=== PATIENT | female | born 1955 | race African-American/Black ===

== ENCOUNTER 2017-05-26 17:52 | Inpatient (IN) | payer MEDICAID, MEDICARE, SELFPAY ==
[2017-05-26] MEDS ORDERED: Dexamethasone 4 mg/ml Vial ONE (18:54)
[2017-05-26 18:59] LABS: Hematocrit 51.1 % (36.0-47.0); Mean Platelet Volume 7.5 fL (7.4-10.4); Red Blood Cell (RBC) Count 4.94 mill/uL (4.20-5.40); White Blood Cell (WBC) Count 16.6 thou/uL (4.8-10.8)
[2017-05-26 19:00] LABS: PTT 25.8 SEC (22.9-36.1)
[2017-05-26 19:11] LABS: Band 3 % (5-11); Lactic Acid - Sepsis 1.9 mmol/L (0.5-2.2); Neutrophil 75 % (42-75); Vacuoles SLIGHT
[2017-05-26 19:18] LABS: ALT (SGPT) 9 U/L (8-55); AST (SGOT) 11 U/L (5-34); Alkaline Phosphatase 113 U/L (40-150); Anion Gap 14 mmol/L (10-20); BUN (Urea Nitrogen) 8 mg/dL (9.8-20.1); Bilirubin, Total 0.4 mg/dL (0.2-1.2); CK (CPK) 33 U/L (29-168); Calc. Creatinine Clearance 0 mL/min (70-130); Calcium 11.4 mg/dL (7.8-10.44); Carbon Dioxide 27 mmol/L (23-31); Chloride 102 mmol/L (98-107); Estimated GFR-MDRD Greater than 90; Globulin 4.5 g/dL (2.4-3.5); Lipase 17 U/L (8-78); Protein, Total 8.6 g/dL (6.0-8.3)
[2017-05-26 19:21] LABS: Troponin I Less than 0.010 ng/mL (< 0.028)
--- NOTE | 2017-05-26 20:52 | RAD ---
PORTABLE AP CHEST X-RAY 05/26/17 HISTORY: Cough. COMPARISON: 06/20/15 FINDINGS: There is increased opacity seen in the right mid lung zone, worrisome for pneumonia. Linear density seen in the left mid lung zone which may be related to atelectasis or scarring. Cardiac silhouette and pulmonary vasculature are within normal limits. Vascular calcifications seen in the thoracic aor ta. No other interval change. IMPRESSION: Pneumonia in the right mid lung zone. Followup to complete resolution is recommended. POS: [facility]
[2017-05-26] MEDS ORDERED: Sodium Chloride 0.9% 1,000 ML IV SCH (21:20)
[2017-05-26] MEDS ORDERED: Ondansetron ODT 4 MG TAB SL PRN (21:20)
[2017-05-26] MEDS ORDERED: Ondansetron HCl/PF 4 MG/2 ML Vial IVP PRN ×2 (21:20→21:31)
[2017-05-26] MEDS ORDERED: Ondansetron ODT 4 MG TAB PO PRN (21:31)
[2017-05-26] MEDS ORDERED: Eucerin (Mineral Oil/Petrolatum,White) 30 gm Jar TOP PRN (21:31)
[2017-05-26] MEDS ORDERED: Artificial Tears 18 DROP/0.9 ML EA EYE PRN (21:31)
[2017-05-26] MEDS ORDERED: Loratadine 10 MG TAB PO PRN (21:31)
[2017-05-26] MEDS ORDERED: Senokot 8.6 MG TAB PO PRN (21:31)
[2017-05-26] MEDS ORDERED: Chloraseptic Spray 180 ml Bottle PO PRN (21:31)
[2017-05-26] MEDS ORDERED: Mag-Al 1200 mg/1200 mg/30 ML UDCUP PO PRN (21:31)
[2017-05-26] MEDS ORDERED: Zolpidem Tartrate 5 MG TAB PO PRN (21:31)
[2017-05-26] MEDS ORDERED: Acetaminophen 325 MG TAB PO PRN (21:31)
[2017-05-26] MEDS ORDERED: Milk Of Magnesia 30 ML UDCUP PO PRN (21:31)
[2017-05-26] MEDS ORDERED: Sodium Chloride 0.65% Nasal 44 ML BOT EA NARE PRN (21:31)
[2017-05-26] MEDS ORDERED: Loperamide HCl 2 MG CAP PO PRN (21:31)
[2017-05-26] MEDS ORDERED: guaiFENesin ER 600 MG TAB PO SCH (22:00)
[2017-05-26 22:09] VITALS: BMI 16.0
[2017-05-26] MEDS: NS 0.9% w/ 20 MEQ KCL 1,000 ML/1,000 ML BAG IV SCH (22:18)
[2017-05-26] MEDS: cefTRIAXone\\ROCEPHIN 1 GM in Sodium Chloride 0.9% 100 ML IVPB SCH (22:18)
[2017-05-26 23:11] LABS: LegU Control Bar Appear? YES (CONTROL BAR); LegionellaU Control Bkground? CLEAR/WHITE (CLR/WHITE); Strp pneuU Control Background? CLEAR/WHITE (CLR/WHITE); Strp pneumo Control Bar Appear YES (CONTROL BAR)
--- NOTE | 2017-05-26 23:47 | HP ---
PRIMARY CARE PHYSICIAN: [facility]. REASON FOR ADMISSION: Sepsis, community-acquired bacterial pneumonia. HISTORY OF PRESENT ILLNESS: A 62-year-old -[place] female with a history of heavy smoking, who came to the emergency room with a complaint of cough productive of yellowish sputum. The patien t has these symptoms for last 3 days, which is gradually getting worse. She is also experiencing sh ortness of breath. She was having subjective fever at home, but she did not measure her temperature . She was also having pleuritic chest pain on the right side. She denies any hemoptysis. She tammy es any recent travel. She denies any sick exposure. She denies any recent viral infection. She de nies any flu-like illness. With these symptoms, she presented to the emergency room and the patient was diagnosed with the righ t-sided pneumonia. Patient also had leukocytosis with left shift. In the emergency room, patient h as received levofloxacin, IV fluid, DuoNeb therapy, and Decadron 10 mg IV push and subsequently, she was admitted to medical floor. REVIEW OF SYSTEMS: The following complete review of systems was negative, unless otherwise mentione d in the HPI or below: Constitutional: Weight loss or gain, ability to conduct usual activities. Skin: Rash, itching. Eyes: Double vision, pain. ENT/Mouth: Nose bleeding, neck stiffness, pain, tenderness. Cardiovascular: Palpitations, dyspnea on exertion, orthopnea. Respiratory: Shortness of breath, wheezing, cough, hemoptysis, fever or night sweats. Gastrointestinal: Poor appetite, abdominal pain, heartburn, nausea, vomiting, constipation, or diar jhonatan. Genitourinary: Urgency, frequency, dysuria, nocturia. Musculoskeletal: Pain, swelling. Neurologic/Psychiatric: Anxiety, depression. Allergy/Immunologic: Skin rash, bleeding tendency. Please see my HPI for pertinent positives and negatives. All other review of system reviewed and ne gative except as mentioned in the HPI. PAST MEDICAL HISTORY: History of systolic dysfunction based on echocardiography in 2014 with EF 40% -45%, hypertension, dyslipidemia, tobacco abuse disorder, history of pancreatitis x2. PAST SURGICAL HISTORY: Dental abscess required I and D in 02/2014, , colonoscopy, and poly p removal. PAST PSYCHIATRIC HISTORY: Anxiety and depression. SOCIAL HISTORY: Patient drinks alcohol socially. She smokes about 1-2 packs every day. She denies any other illicit drug abuse. FAMILY HISTORY: Patient reports that patient's mother and sister diagnosed with coronary artery dis ease, hypertension. Patient also reports that her mother had lung cancer with metastasis to brain. EMERGENCY ROOM COURSE: The patient has received 2 liters of IV fluid and Levofloxacin 750 mg, Decad valeria 10 mg, DuoNeb therapy was given. CURRENT HOME MEDICATIONS: Coreg 3.125 mg p.o. b.i.d., Celexa 20 mg p.o. daily, Remeron 30 mg p.o. a t bedtime, Zocor 40 mg p.o. at bedtime, trazodone 25 mg p.o. at bedtime, aspirin 81 mg p.o. daily. ALLERGIES: No known drug allergies. PHYSICAL EXAMINATION: VITAL SIGNS: On arrival, blood pressure 148/81, pulse 94, respiratory rate 18, temperature 98.6, sa turation 94% on room air, weight 46.7 kilograms. GENERAL: Patient is currently alert, awake, in mild distress due to cough. HEENT: Head: Normocephalic, atraumatic. Eyes: Pupils round, reactive to light. Extraocular musc les intact. ENT: Poor dentition. Oropharynx within normal limits. Moist mucous membranes. No oral lesions. No pharyngeal erythema. No exudate. NECK: Supple. Range of motion is normal. No meningeal signs of irritation. LUNGS: Scattered rhonchi throughout the lung, right-sided few rales noted. No accessory muscles of respiration in use. CARDIAC: S1, S2 regular. No murmur, no gallop, no rub. ABDOMEN: Soft, bowel sounds present, nontender, nondistended. No organomegaly, no mass, no suprapu bic tenderness. BACK: Unremarkable, no CVA tenderness. EXTREMITIES: Upper extremity, passive movement of all joints are normal. Lower extremities, no iqra ma. Good peripheral pulsation. SKIN: No skin rash. HEMATOLOGIC SYSTEM: No lymphadenopathy. NEUROLOGIC: Nonfocal examination. The patient moves all 4 limbs. Plantar bilateral flexor. PSYCHIATRIC: Normal affect. SIGNIFICANT LABS: EKG based on my review, normal sinus rhythm, right axis deviation. Chest x-ray b ased on my review, right lower lobe infiltration. CBC: WBC 16.6, hemoglobin 16.3, MCV 103, platele t 328 with bandemia. INR 1.0. BMP: Sodium 140, potassium 3.2, chloride 102, carbon dioxide 27, BU N 8, creatinine 0.72, glucose 71, lactic acid 1.9, calcium 11.4. LFT: AST 11, ALT 9, alkaline phos phatase 113, albumin 4.1, lipase 17, CK 133, CK-MB 0.5, troponin I less than 0.010. BNP 75. ASSESSMENT AND PLAN/IMPRESSION: 1. Community-acquired bacterial pneumonia. This patient has a right lower lobe pneumonia. Patient also has associated sepsis with leukocytosis. This patient has ongoing tobacco abuse disorder. At this point for further evaluation, we will check a respiratory virus panel, urine allergy on cassandra a nd streptococcal pneumoniae antigen test. We will continue with Rocephin 1 gram q.24 hours, Levaqui n 500 mg IV daily, Mucinex 600 mg twice daily, DuoNeb therapy q.6 hourly, Solu-Medrol 20 mg IV q.8 h ourly. We will monitor closely in hospital. 2. Sepsis. Patient does have leukocytosis with left shift and bandemia. Source of infection is pn eumonia. We will monitor while in hospital. The patient is already on IV fluid as well as empiric antibiotic therapy. 3. Hypokalemia. We will check magnesium tomorrow and will give her potassium with IV fluid today a nd will repeat BMP tomorrow. 4. Macrocytosis, likely related with her alcohol use. We will continue with folic acid 1 mg p.o. d aily, vitamin B12 1000 mcg p.o. daily. 5. Tobacco abuse disorder. Smoking cessation counseling was given. Healthy lifestyle measures dis cussed with the patient. If patient needs, then we will provide nicotine supplementation while in h ospital. 6. Hypertension. We will continue Coreg 3.125 mg p.o. b.i.d. 7. History of systolic dysfunction. We will continue with Coreg 3.125 mg p.o. b.i.d. If blood pre ssure permits, then we will also consider adding a low dose of lisinopril therapy before discharge. 8. Dyslipidemia. We will continue Zocor 40 mg p.o. at bedtime. 9. Anxiety and depression. We will continue Celexa 20 mg p.o. daily, trazodone 25 mg p.o. at bedti me, and Remeron 30 mg p.o. at bedtime. 10. Protein-calorie malnutrition, moderate. Patient will be given nutritional supplement with Ensu re Enlive 3 times daily. 11. Deep venous thrombosis prophylaxis. Lovenox 40 mg subcutaneously daily. 12. Gastrointestinal prophylaxis. Pepcid 20 mg p.o. b.i.d. 13. Code status: The patient is FULL CODE. Patient's is surrogate decision maker. Disposition plan based on clinical course. We are expecting patient's stay in hospital more than tw o midnights. Plan of care discussed with the patient and family member at bedside.
[2017-05-27 05:28] LABS: #Lymphocytes 1.9 thou/uL (1.20-3.40); #Monocytes 0.4 thou/uL (0.11-0.59); #Neutrophils 11.4 thou/uL (1.40-6.50); %Basophils 0.3 % (0.0-1.0); %Eosinophils 0.1 % (0.0-10.0); %Lymphocytes 13.5 % (21.0-51.0); %Monocytes 2.7 % (0.0-10.0); Hematocrit 43.5 % (36.0-47.0); Mean Platelet Volume 7.7 fL (7.4-10.4); Red Blood Cell (RBC) Count 4.17 mill/uL (4.20-5.40); White Blood Cell (WBC) Count 13.7 thou/uL (4.8-10.8)
[2017-05-27] MEDS: Guaifenesin DM 100-10/5 ML UDCUP PO PRN ×2 (05:43→20:59)
[2017-05-27 05:57] LABS: ALT (SGPT) 13 U/L (8-55); AST (SGOT) 14 U/L (5-34); Alkaline Phosphatase 93 U/L (40-150); Anion Gap 12 mmol/L (10-20); BUN (Urea Nitrogen) 7 mg/dL (9.8-20.1); Bilirubin, Total 0.2 mg/dL (0.2-1.2); Calc. Creatinine Clearance 65 mL/min (70-130); Calcium 10.4 mg/dL (7.8-10.44); Carbon Dioxide 22 mmol/L (23-31); Chloride 111 mmol/L (98-107); Estimated GFR-MDRD Greater than 90; Globulin 3.5 g/dL (2.4-3.5); Magnesium 1.9 mg/dL (1.6-2.6); Protein, Total 6.5 g/dL (6.0-8.3)
[2017-05-27] MEDS: Enoxaparin Sodium 40 MG/0.4 ML SYRINGE SC SCH (08:26)
[2017-05-27] MEDS: Carvedilol 3.125 MG TAB PO SCH ×2 (08:26→17:43)
[2017-05-27] MEDS: Folic Acid 1 MG TAB PO SCH (08:27)
[2017-05-27] MEDS: Famotidine 20 MG TAB PO SCH ×2 (08:27→20:31)
[2017-05-27] MEDS: Cyanocobalamin (Vitamin B-12) 1,000 MCG TAB PO SCH (08:27)
[2017-05-27] MEDS: guaiFENesin ER 600 MG TAB PO SCH ×2 (08:28→20:32)
[2017-05-27] MEDS ORDERED: Dexamethasone 10 MG/ML VIAL SLOW IVP SCH (09:00)
--- NOTE | 2017-05-27 10:48 | CT ---
NONCONTRAST ENHANCED CT CHEST: DATE: 05/27/17. HISTORY: Pneumonia. FINDINGS: Noncontrast-enhanced CT of the chest demonstrates areas of consolidation and volume loss in the righ t middle lobe and lingula. Some mild diffuse airspace opacity is also seen in the right upper lobe and to a lesser degree left upper lobe. Minimal airspace opacities are also seen in both lower lobe s, anteriorly. IMPRESSION: Multilobar pneumonia. POS: [facility]
[2017-05-27] MEDS: NS 0.9% w/ 20 MEQ KCL 1,000 ML/1,000 ML BAG IV SCH (12:27)
[2017-05-27] MEDS: HYDROcodone/Acetaminophen 5/325 mg Tablet PO PRN (15:14)
--- NOTE | 2017-05-27 16:19 | PDOC.PN ---
- Subjective Encounter Start Date: 05/27/17 Encounter Start Time: 13:00 Subjective: breathing better now -: no chest pain - Objective Resuscitation Status: Resuscitation Status FULL:Full Resuscitation MAR Reviewed: Yes Vital Signs & Weight: Vital Signs (12 hours) Temp Pulse Resp BP Pulse Ox 05/27/17 14:12 64 16 05/27/17 08:02 99 05/27/17 08:00 98.2 F 64 24 H 149/72 H 91 L 05/27/17 07:58 68 15 99 Weight Admit Weight 102 lb Weight 102 lb I&O: 05/26/17 05/27/17 05/28/17 06:59 06:59 06:59 Intake Total 1420 240 Balance 1420 240 Result Diagrams: 05/27/17 04:58 05/27/17 04:58 Phys Exam - Physical Examination HEENT: PERRLA, moist MMs Neck: no JVD, supple Respiratory: no wheezing rhonchi++ Cardiovascular: RRR, no significant murmur Gastrointestinal: soft, non-tender, positive bowel sounds Musculoskeletal: no edema, pulses present Neurological: non-focal, moves all 4 limbs Psychiatric: A&O x 3 Dx/Plan (1) PNA (pneumonia) Code(s): J18.9 - PNEUMONIA, UNSPECIFIED ORGANISM Status: Acute Qualifiers: Pneumonia type: due to unspecified organism Laterality: right Lung location: middle lobe of lung Qualified Code(s): J18.1 - Lobar pneumonia, unspecified organism (2) COPD (chronic obstructive pulmonary disease) Status: Chronic Qualifiers: COPD type: COPD with acute lower respiratory infection Qualified Code(s): J44.0 - Chronic obstructive pulmonary disease with acute lower respiratory infection (3) Hyperlipidemia Code(s): E78.5 - HYPERLIPIDEMIA, UNSPECIFIED Status: Chronic Qualifiers: Hyperlipidemia type: unspecified Qualified Code(s): E78.5 - Hyperlipidemia , unspecified (4) Hypertension Code(s): I10 - ESSENTIAL (PRIMARY) HYPERTENSION Status: Chronic Qualifiers: Hypertension type: essential hypertension Qualified Code(s): I10 - Essential (primary) hypertension (5) Tobacco abuse Code(s): Z72.0 - TOBACCO USE Status: Acute - Plan is on levaquin and ceftriaxone -: duonebs, steroids -: CT chest results noted -: pulm consult in am -: counselled reg smoking cessation, has high mcv of 104 * . Review of Systems - Medications/Allergies Allergies/Adverse Reactions: Allergies Allergy/AdvReac Type Severity Reaction Status Date / Time No Known Allergies Allergy Verified 05/26/17 21:30 Medications: Current Medications Acetaminophen (Tylenol) 650 mg PO Q4H PRN PRN Reason: Headache/Fever or Pain Hydrocodone Bitart/Acetaminophen ([place] 5/325) 1 tab PO Q4H PRN PRN Reason: Moderate Pain (4-6) Last Admin: 05/27/17 15:14 Dose: 1 tab Al Hydroxide/Mg Hydroxide (Maalox) 30 ml PO Q6H PRN PRN Reason: Heartburn or Indigestion Albuterol/Ipratropium (Duoneb) 3 ml NEB [id number] [facility] Last Admin: 05/27/17 14:12 Dose: 3 ml Artificial Tears (Tears Naturale) 0 drop EA EYE PRN PRN PRN Reason: Dry Eyes Aspirin (Aspirin Chewable) 81 mg PO DAILY [facility] Last Admin: 05/27/17 08:27 Dose: 81 mg Atorvastatin Calcium (Lipitor) 20 mg PO HS [facility] Carvedilol (Coreg) 3.125 mg PO BID-[facility] Last Admin: 05/27/17 08:26 Dose: 3.125 mg Citalopram Hydrobromide (Celexa) 20 mg PO DAILY [facility] Last Admin: 05/27/17 08:27 Dose: 20 mg Cyanocobalamin (Vitamin B-12) 1,000 mcg PO DAILY [facility] Last Admin: 05/27/17 08:27 Dose: 1,000 mcg Enoxaparin Sodium (Lovenox) 40 mg SC 0900 [facility] Last Admin: 05/27/17 08:26 Dose: 40 mg Famotidine (Pepcid) 20 mg PO BID [facility] Last Admin: 05/27/17 08:27 Dose: 20 mg Folic Acid (Folvite) 1 mg PO DAILY [facility] Last Admin: 05/27/17 08:27 Dose: 1 mg Guaifenesin (Robitussin Sf) 200 mg PO Q4H PRN PRN Reason: Cough Guaifenesin (Mucinex) 600 mg PO Q12HR [facility] Last Admin: 05/27/17 08:28 Dose: 600 mg Guaifenesin/Dextromethorphan (Robitussin Dm) 15 ml PO Q4H PRN PRN Reason: Cough Last Admin: 05/27/17 05:43 Dose: 15 ml Hydralazine HCl (Apresoline) 10 mg SLOW IVP Q4H PRN PRN Reason: Systolic BP > 180 Potassium Chloride/Sodium Chloride (Ns 0.9% W/ 20 Meq Kcl) 1,000 ml in 1,000 mls @ 75 mls/hr IV .[id number] [facility] Last Admin: 05/27/17 12:27 Dose: 1,000 mls Ceftriaxone Sodium 1 gm/ (Sodium Chloride) 100 mls @ 200 mls/hr IVPB Q24HR [facility] Last Admin: 05/26/17 22:18 Dose: 100 mls Levofloxacin 500 mg/ Device 100 mls @ 100 mls/hr IVPB Q24HR [facility] Loperamide HCl (Imodium) 2 mg PO PRN PRN PRN Reason: Diarrhea/Loose Stools Loratadine (Claritin) 10 mg PO DAILYPRN PRN PRN Reason: Sinus Symptoms Magnesium Hydroxide (Milk Of Magnesium) 30 ml PO DAILYPRN PRN PRN Reason: Constipation Methylprednisolone Sodium Succinate (Solu-Medrol) 20 mg IVP Q8HR [facility] Last Admin: 05/27/17 15:10 Dose: 20 mg Mineral Oil/White Petrolatum (Eucerin Cream) 0 gm TOP BIDPRN PRN PRN Reason: Dry Skin Mirtazapine (Remeron) 30 mg PO HS [facility] Ondansetron HCl (Zofran Odt) 4 mg PO Q6H PRN PRN Reason: Nausea/Vomiting Ondansetron HCl (Zofran) 4 mg IVP Q6H PRN PRN Reason: Nausea/Vomiting Phenol (Chloraseptic [place] 180 Ml Bot) 0 ml PO PRN PRN PRN Reason: Sore Throat Senna (Senokot) 2 tab PO HSPRN PRN PRN Reason: Constipation Sodium Chloride ([place] Nasal [place] 0.65%) 0 ml EA NARE QIDPRN PRN PRN Reason: Nasal Congestion Sodium Chloride (Flush - Normal Saline) 10 ml IVF PRN PRN PRN Reason: Saline Flush Trazodone HCl (Desyrel) 25 mg PO HS [facility] Zolpidem Tartrate (Ambien) 5 mg PO HSPRN PRN PRN Reason: Insomnia
[2017-05-27] MEDS: Mirtazapine 30 MG TAB PO SCH (20:30)
[2017-05-27] MEDS: Atorvastatin Calcium 20 MG TAB PO SCH (20:31)
[2017-05-27] MEDS: traZODone HCl 50 MG TAB PO SCH (20:40)
[2017-05-27] MEDS: cefTRIAXone\\ROCEPHIN 1 GM in Sodium Chloride 0.9% 100 ML IVPB SCH (21:00)
[2017-05-28] MEDS: NS 0.9% w/ 20 MEQ KCL 1,000 ML/1,000 ML BAG IV SCH ×2 (01:28→14:42)
[2017-05-28 04:35] LABS: #Basophils 0.1 thou/uL (0.0-0.2); #Lymphocytes 1.9 thou/uL (1.20-3.40); #Monocytes 0.5 thou/uL (0.11-0.59); #Neutrophils 10.8 thou/uL (1.40-6.50); %Basophils 0.5 % (0.0-1.0); %Eosinophils 0.1 % (0.0-10.0); %Lymphocytes 14.3 % (21.0-51.0); %Monocytes 3.8 % (0.0-10.0); Hematocrit 42.5 % (36.0-47.0); Mean Platelet Volume 7.9 fL (7.4-10.4); Red Blood Cell (RBC) Count 4.07 mill/uL (4.20-5.40); White Blood Cell (WBC) Count 13.3 thou/uL (4.8-10.8)
[2017-05-28 05:03] LABS: Anion Gap 11 mmol/L (10-20); BUN (Urea Nitrogen) 9 mg/dL (9.8-20.1); Calc. Creatinine Clearance 67 mL/min (70-130); Calcium 10.5 mg/dL (7.8-10.44); Carbon Dioxide 22 mmol/L (23-31); Chloride 113 mmol/L (98-107); Estimated GFR-MDRD Greater than 90
[2017-05-28] MEDS: Cyanocobalamin (Vitamin B-12) 1,000 MCG TAB PO SCH (07:52)
[2017-05-28] MEDS: Famotidine 20 MG TAB PO SCH ×2 (07:52→20:36)
[2017-05-28] MEDS: Carvedilol 3.125 MG TAB PO SCH ×2 (07:52→17:45)
[2017-05-28] MEDS: guaiFENesin ER 600 MG TAB PO SCH ×2 (07:53→20:36)
[2017-05-28] MEDS: Folic Acid 1 MG TAB PO SCH (07:53)
[2017-05-28] MEDS: Enoxaparin Sodium 40 MG/0.4 ML SYRINGE SC SCH (07:54)
[2017-05-28] MEDS: HYDROcodone/Acetaminophen 5/325 mg Tablet PO PRN ×2 (10:13→17:45)
--- NOTE | 2017-05-28 15:52 | PDOC.PN ---
- Subjective Encounter Start Date: 05/28/17 Encounter Start Time: 13:00 Subjective: breathing better, is bringing up thick sputum now - Objective Resuscitation Status: Resuscitation Status FULL:Full Resuscitation MAR Reviewed: Yes Vital Signs & Weight: Vital Signs (12 hours) Temp Pulse Resp BP Pulse Ox 05/28/17 14:13 76 20 05/28/17 11:50 98.3 F 56 L 16 160/82 H 95 05/28/17 07:58 97.8 F 54 L 16 170/76 H 95 05/28/17 07:46 95 05/28/17 07:43 97.8 F 52 L 14 95 05/28/17 07:42 54 L 20 95 Weight Admit Weight 102 lb Weight 102 lb I&O: 05/27/17 05/28/17 05/29/17 06:59 06:59 06:59 Intake Total 1420 1050 480 Balance 1420 1050 480 Result Diagrams: 05/28/17 04:12 05/28/17 04:12 Phys Exam - Physical Examination HEENT: PERRLA, moist MMs Neck: no JVD, supple Respiratory: no wheezing, no rales rhonchi+ Cardiovascular: RRR, no significant murmur Gastrointestinal: soft, non-tender, positive bowel sounds Musculoskeletal: no edema, pulses present Neurological: non-focal, moves all 4 limbs Psychiatric: A&O x 3 Dx/Plan (1) PNA (pneumonia) Code(s): J18.9 - PNEUMONIA, UNSPECIFIED ORGANISM Status: Acute Qualifiers: Pneumonia type: due to unspecified organism Laterality: right Lung location: middle lobe of lung Qualified Code(s): J18.1 - Lobar pneumonia, unspecified organism (2) COPD (chronic obstructive pulmonary disease) Status: Chronic Qualifiers: COPD type: COPD with acute lower respiratory infection Qualified Code(s): J44.0 - Chronic obstructive pulmonary disease with acute lower respiratory infection (3) Hyperlipidemia Code(s): E78.5 - HYPERLIPIDEMIA, UNSPECIFIED Status: Chronic Qualifiers: Hyperlipidemia type: unspecified Qualified Code(s): E78.5 - Hyperlipidemia , unspecified (4) Hypertension Code(s): I10 - ESSENTIAL (PRIMARY) HYPERTENSION Status: Chronic Qualifiers: Hypertension type: essential hypertension Qualified Code(s): I10 - Essential (primary) hypertension (5) Tobacco abuse Code(s): Z72.0 - TOBACCO USE Status: Acute - Plan on ceftriaxone and levaquin -: duonebs, low dose steroids -: is slowly improving -: wbc is 13 * . Review of Systems - Medications/Allergies Allergies/Adverse Reactions: Allergies Allergy/AdvReac Type Severity Reaction Status Date / Time No Known Allergies Allergy Verified 05/26/17 21:30 Medications: Current Medications Acetaminophen (Tylenol) 650 mg PO Q4H PRN PRN Reason: Headache/Fever or Pain Hydrocodone Bitart/Acetaminophen ([place] 5/325) 1 tab PO Q4H PRN PRN Reason: Moderate Pain (4-6) Last Admin: 05/28/17 10:13 Dose: 1 tab Al Hydroxide/Mg Hydroxide (Maalox) 30 ml PO Q6H PRN PRN Reason: Heartburn or Indigestion Albuterol/Ipratropium (Duoneb) 3 ml NEB [id number] [facility] Last Admin: 05/28/17 14:13 Dose: 3 ml Artificial Tears (Tears Naturale) 0 drop EA EYE PRN PRN PRN Reason: Dry Eyes Aspirin (Aspirin Chewable) 81 mg PO DAILY [facility] Last Admin: 05/28/17 07:53 Dose: 81 mg Atorvastatin Calcium (Lipitor) 20 mg PO HS [facility] Last Admin: 05/27/17 20:31 Dose: 20 mg Carvedilol (Coreg) 3.125 mg PO BID-WM [facility] Last Admin: 05/28/17 07:52 Dose: 3.125 mg Citalopram Hydrobromide (Celexa) 20 mg PO DAILY [facility] Last Admin: 05/28/17 07:52 Dose: 20 mg Cyanocobalamin (Vitamin B-12) 1,000 mcg PO DAILY [facility] Last Admin: 05/28/17 07:52 Dose: 1,000 mcg Enoxaparin Sodium (Lovenox) 40 mg SC 0900 [facility] Last Admin: 05/28/17 07:54 Dose: 40 mg Famotidine (Pepcid) 20 mg PO BID [facility] Last Admin: 05/28/17 07:52 Dose: 20 mg Folic Acid (Folvite) 1 mg PO DAILY [facility] Last Admin: 05/28/17 07:53 Dose: 1 mg Guaifenesin (Robitussin Sf) 200 mg PO Q4H PRN PRN Reason: Cough Guaifenesin (Mucinex) 600 mg PO Q12HR [facility] Last Admin: 05/28/17 07:53 Dose: 600 mg Guaifenesin/Dextromethorphan (Robitussin Dm) 15 ml PO Q4H PRN PRN Reason: Cough Last Admin: 05/27/17 20:59 Dose: 15 ml Hydralazine HCl (Apresoline) 10 mg SLOW IVP Q4H PRN PRN Reason: Systolic BP > 180 Potassium Chloride/Sodium Chloride (Ns 0.9% W/ 20 Meq Kcl) 1,000 ml in 1,000 mls @ 75 mls/hr IV .[id number] [facility] Last Admin: 05/28/17 14:42 Dose: 1,000 mls Ceftriaxone Sodium 1 gm/ (Sodium Chloride) 100 mls @ 200 mls/hr IVPB Q24HR [facility] Last Admin: 05/27/17 21:00 Dose: 100 mls Levofloxacin 500 mg/ Device 100 mls @ 100 mls/hr IVPB Q24HR [facility] Last Admin: 05/27/17 20:32 Dose: 100 mls Loperamide HCl (Imodium) 2 mg PO PRN PRN PRN Reason: Diarrhea/Loose Stools Loratadine (Claritin) 10 mg PO DAILYPRN PRN PRN Reason: Sinus Symptoms Magnesium Hydroxide (Milk Of Magnesium) 30 ml PO DAILYPRN PRN PRN Reason: Constipation Methylprednisolone Sodium Succinate (Solu-Medrol) 20 mg IVP Q8HR [facility] Last Admin: 05/28/17 14:41 Dose: 20 mg Mineral Oil/White Petrolatum (Eucerin Cream) 0 gm TOP BIDPRN PRN PRN Reason: Dry Skin Mirtazapine (Remeron) 30 mg PO [facility] Last Admin: 05/27/17 20:30 Dose: 30 mg Ondansetron HCl (Zofran Odt) 4 mg PO Q6H PRN PRN Reason: Nausea/Vomiting Ondansetron HCl (Zofran) 4 mg IVP Q6H PRN PRN Reason: Nausea/Vomiting Phenol (Chloraseptic [place] 180 Ml Bot) 0 ml PO PRN PRN PRN Reason: Sore Throat Senna (Senokot) 2 tab PO HSPRN PRN PRN Reason: Constipation Sodium Chloride ([place] Nasal [place] 0.65%) 0 ml EA NARE QIDPRN PRN PRN Reason: Nasal Congestion Sodium Chloride (Flush - Normal Saline) 10 ml IVF PRN PRN PRN Reason: Saline Flush Trazodone HCl (Desyrel) 25 mg PO HS [facility] Last Admin: 05/27/17 20:40 Dose: 25 mg Zolpidem Tartrate (Ambien) 5 mg PO HSPRN PRN PRN Reason: Insomnia
[2017-05-28] MEDS: Mirtazapine 30 MG TAB PO SCH (20:35)
[2017-05-28] MEDS: cefTRIAXone\\ROCEPHIN 1 GM in Sodium Chloride 0.9% 100 ML IVPB SCH (20:35)
[2017-05-28] MEDS: Atorvastatin Calcium 20 MG TAB PO SCH (20:36)
[2017-05-28] MEDS: traZODone HCl 50 MG TAB PO SCH (20:37)
[2017-05-28] MEDS: Guaifenesin DM 100-10/5 ML UDCUP PO PRN (20:43)
[2017-05-29] MEDS: HYDROcodone/Acetaminophen 5/325 mg Tablet PO PRN ×2 (03:16→11:15)
[2017-05-29] MEDS: NS 0.9% w/ 20 MEQ KCL 1,000 ML/1,000 ML BAG IV SCH (03:20)
[2017-05-29 05:16] LABS: #Basophils 0.1 thou/uL (0.0-0.2); #Lymphocytes 3.4 thou/uL (1.20-3.40); #Monocytes 0.9 thou/uL (0.11-0.59); #Neutrophils 8.8 thou/uL (1.40-6.50); %Basophils 0.8 % (0.0-1.0); %Eosinophils 0.3 % (0.0-10.0); %Lymphocytes 25.9 % (21.0-51.0); %Monocytes 6.9 % (0.0-10.0); Hematocrit 43.2 % (36.0-47.0); Mean Platelet Volume 7.3 fL (7.4-10.4); Red Blood Cell (RBC) Count 4.11 mill/uL (4.20-5.40); White Blood Cell (WBC) Count 13.3 thou/uL (4.8-10.8)
[2017-05-29 05:30] LABS: Anion Gap 7 mmol/L (10-20); BUN (Urea Nitrogen) 9 mg/dL (9.8-20.1); Calc. Creatinine Clearance 77 mL/min (70-130); Calcium 9.8 mg/dL (7.8-10.44); Carbon Dioxide 25 mmol/L (23-31); Chloride 114 mmol/L (98-107); Estimated GFR-MDRD Greater than 90
[2017-05-29] MEDS ORDERED: predniSONE 20 MG TAB PO SCH (08:00)
[2017-05-29] MEDS: Diabetic Tussin 200 MG/10 ML UDCUP PO PRN ×2 (08:42→20:26)
[2017-05-29] MEDS: Carvedilol 3.125 MG TAB PO SCH ×2 (08:43→17:43)
[2017-05-29] MEDS: Cyanocobalamin (Vitamin B-12) 1,000 MCG TAB PO SCH (08:45)
[2017-05-29] MEDS: Famotidine 20 MG TAB PO SCH ×2 (08:45→20:26)
[2017-05-29] MEDS: Folic Acid 1 MG TAB PO SCH (08:45)
[2017-05-29] MEDS: guaiFENesin ER 600 MG TAB PO SCH ×2 (08:45→20:26)
[2017-05-29] MEDS: Enoxaparin Sodium 40 MG/0.4 ML SYRINGE SC SCH (08:46)
--- NOTE | 2017-05-29 11:34 | PDOC.PN ---
- Subjective Encounter Start Date: 05/29/17 Encounter Start Time: 09:50 Subjective: no sob, feels better -: coughing up yellow thick sputum - Objective Resuscitation Status: Resuscitation Status FULL:Full Resuscitation MAR Reviewed: Yes Vital Signs & Weight: Vital Signs (12 hours) Temp Pulse Resp BP Pulse Ox 05/29/17 08:48 64 05/29/17 08:00 97.9 F 64 12 94 L 05/29/17 07:44 97.9 F 54 L 12 154/74 H 94 L 05/29/17 06:17 74 16 95 Weight Admit Weight 102 lb Weight 102 lb I&O: 05/28/17 05/29/17 05/30/17 06:59 06:59 06:59 Intake Total 1050 3930 240 Balance 1050 3930 240 Result Diagrams: 05/29/17 04:45 05/29/17 04:45 Phys Exam - Physical Examination HEENT: PERRLA, moist MMs Neck: no JVD, supple Respiratory: no wheezing, no rales rhonchi+ Cardiovascular: RRR, no significant murmur Gastrointestinal: soft, non-tender, positive bowel sounds Musculoskeletal: no edema, pulses present Neurological: non-focal, moves all 4 limbs Psychiatric: A&O x 3 Dx/Plan (1) PNA (pneumonia) Code(s): J18.9 - PNEUMONIA, UNSPECIFIED ORGANISM Status: Acute Qualifiers: Pneumonia type: due to unspecified organism Laterality: right Lung location: middle lobe of lung Qualified Code(s): J18.1 - Lobar pneumonia, unspecified organism (2) COPD (chronic obstructive pulmonary disease) Status: Chronic Qualifiers: COPD type: COPD with acute lower respiratory infection Qualified Code(s): J44.0 - Chronic obstructive pulmonary disease with acute lower respiratory infection (3) Hyperlipidemia Code(s): E78.5 - HYPERLIPIDEMIA, UNSPECIFIED Status: Chronic Qualifiers: Hyperlipidemia type: unspecified Qualified Code(s): E78.5 - Hyperlipidemia , unspecified (4) Hypertension Code(s): I10 - ESSENTIAL (PRIMARY) HYPERTENSION Status: Chronic Qualifiers: Hypertension type: essential hypertension Qualified Code(s): I10 - Essential (primary) hypertension (5) Tobacco abuse Code(s): Z72.0 - TOBACCO USE Status: Acute - Plan is on levaquin and ceftriaxone -: transition to omnicef/levaquin oral in am for 10 days -: will need outpt cxr in 10 days and f/u with PCP to see for resolution -: taper prednisone to 5mg and may dc on discharge -: counselled reg f/u with pcp in 10days as she is a heavy smoker to r/o under * . -rlying mass in right middle lobe if her pna is persisting. Review of Systems - Medications/Allergies Allergies/Adverse Reactions: Allergies Allergy/AdvReac Type Severity Reaction Status Date / Time No Known Allergies Allergy Verified 05/26/17 21:30 Medications: Current Medications Acetaminophen (Tylenol) 650 mg PO Q4H PRN PRN Reason: Headache/Fever or Pain Hydrocodone Bitart/Acetaminophen ([place] 5/325) 1 tab PO Q4H PRN PRN Reason: Moderate Pain (4-6) Last Admin: 05/29/17 11:15 Dose: 1 tab Al Hydroxide/Mg Hydroxide (Maalox) 30 ml PO Q6H PRN PRN Reason: Heartburn or Indigestion Albuterol/Ipratropium (Duoneb) 3 ml NEB [id number] [facility] Last Admin: 05/29/17 06:17 Dose: 3 ml Artificial Tears (Tears Naturale) 0 drop EA EYE PRN PRN PRN Reason: Dry Eyes Aspirin (Aspirin Chewable) 81 mg PO DAILY [facility] Last Admin: 05/29/17 08:45 Dose: 81 mg Atorvastatin Calcium (Lipitor) 20 mg PO HS [facility] Last Admin: 05/28/17 20:36 Dose: 20 mg Carvedilol (Coreg) 3.125 mg PO BID-[facility] Last Admin: 05/29/17 08:43 Dose: 3.125 mg Citalopram Hydrobromide (Celexa) 20 mg PO DAILY [facility] Last Admin: 05/29/17 08:45 Dose: 20 mg Cyanocobalamin (Vitamin B-12) 1,000 mcg PO DAILY [facility] Last Admin: 05/29/17 08:45 Dose: 1,000 mcg Enoxaparin Sodium (Lovenox) 40 mg SC 0900 [facility] Last Admin: 05/29/17 08:46 Dose: 40 mg Famotidine (Pepcid) 20 mg PO BID [facility] Last Admin: 05/29/17 08:45 Dose: 20 mg Folic Acid (Folvite) 1 mg PO DAILY [facility] Last Admin: 05/29/17 08:45 Dose: 1 mg Guaifenesin (Robitussin Sf) 200 mg PO Q4H PRN PRN Reason: Cough Last Admin: 05/29/17 08:42 Dose: 200 mg Guaifenesin (Mucinex) 600 mg PO Q12HR [facility] Last Admin: 05/29/17 08:45 Dose: 600 mg Guaifenesin/Dextromethorphan (Robitussin Dm) 15 ml PO Q4H PRN PRN Reason: Cough Last Admin: 05/28/17 20:43 Dose: 15 ml Hydralazine HCl (Apresoline) 10 mg SLOW IVP Q4H PRN PRN Reason: Systolic BP > 180 Ceftriaxone Sodium 1 gm/ (Sodium Chloride) 100 mls @ 200 mls/hr IVPB Q24HR [facility] Last Admin: 05/28/17 20:35 Dose: 100 mls Levofloxacin 500 mg/ Device 100 mls @ 100 mls/hr IVPB Q24HR [facility] Last Admin: 05/28/17 20:35 Dose: 100 mls Loperamide HCl (Imodium) 2 mg PO PRN PRN PRN Reason: Diarrhea/Loose Stools Loratadine (Claritin) 10 mg PO DAILYPRN PRN PRN Reason: Sinus Symptoms Magnesium Hydroxide (Milk Of Magnesium) 30 ml PO DAILYPRN PRN PRN Reason: Constipation Mineral Oil/White Petrolatum (Eucerin Cream) 0 gm TOP BIDPRN PRN PRN Reason: Dry Skin Mirtazapine (Remeron) 30 mg PO HS [facility] Last Admin: 05/28/17 20:35 Dose: 30 mg Ondansetron HCl (Zofran Odt) 4 mg PO Q6H PRN PRN Reason: Nausea/Vomiting Ondansetron HCl (Zofran) 4 mg IVP Q6H PRN PRN Reason: Nausea/Vomiting Phenol (Chloraseptic [place] 180 Ml Bot) 0 ml PO PRN PRN PRN Reason: Sore Throat Prednisone (Prednisone) 5 mg PO QAM-[facility] Senna (Senokot) 2 tab PO HSPRN PRN PRN Reason: Constipation Sodium Chloride ([place] Nasal [place] 0.65%) 0 ml EA NARE QIDPRN PRN PRN Reason: Nasal Congestion Sodium Chloride (Flush - Normal Saline) 10 ml IVF PRN PRN PRN Reason: Saline Flush Trazodone HCl (Desyrel) 25 mg PO HS [facility] Last Admin: 05/28/17 20:37 Dose: 25 mg Zolpidem Tartrate (Ambien) 5 mg PO HSPRN PRN PRN Reason: Insomnia
[2017-05-29] MEDS: Mirtazapine 30 MG TAB PO SCH (20:26)
[2017-05-29] MEDS: Atorvastatin Calcium 20 MG TAB PO SCH (20:26)
[2017-05-29] MEDS: traZODone HCl 50 MG TAB PO SCH (20:34)
[2017-05-29] MEDS: cefTRIAXone\\ROCEPHIN 1 GM in Sodium Chloride 0.9% 100 ML IVPB SCH (21:38)
[2017-05-30] MEDS: Carvedilol 3.125 MG TAB PO SCH ×2 (08:11→17:18)
[2017-05-30] MEDS: predniSONE 5 MG TAB PO SCH (08:11)
[2017-05-30] MEDS: guaiFENesin ER 600 MG TAB PO SCH ×2 (08:11→20:52)
[2017-05-30] MEDS: Enoxaparin Sodium 40 MG/0.4 ML SYRINGE SC SCH (08:12)
[2017-05-30] MEDS: Cyanocobalamin (Vitamin B-12) 1,000 MCG TAB PO SCH (08:12)
[2017-05-30] MEDS: Folic Acid 1 MG TAB PO SCH (08:12)
[2017-05-30] MEDS: Famotidine 20 MG TAB PO SCH ×2 (08:12→20:53)
[2017-05-30] MEDS: Diabetic Tussin 200 MG/10 ML UDCUP PO PRN ×2 (08:15→20:57)
--- NOTE | 2017-05-30 14:33 | PDOC.PN ---
- Subjective Encounter Start Date: 05/30/17 Encounter Start Time: 11:00 -: old records requested/rev Patient seen and examined. No new complaints. No overnight events - Objective Resuscitation Status: Resuscitation Status FULL:Full Resuscitation MAR Reviewed: Yes Vital Signs & Weight: Vital Signs (12 hours) Temp Pulse Resp BP BP Pulse Ox 05/30/17 08:00 97.6 F 80 17 100 05/30/17 07:50 97.6 F 80 17 155/100 H 100 05/30/17 07:33 78 20 97 05/30/17 06:28 97.6 F 56 L 16 155/80 H 95 Weight Admit Weight 102 lb Weight 102 lb I&O: 05/29/17 05/30/17 05/31/17 06:59 06:59 06:59 Intake Total 3930 920 1790 Balance 3930 920 1790 Result Diagrams: 05/29/17 04:45 05/29/17 04:45 Phys Exam - Physical Examination Constitutional: NAD HEENT: moist MMs Neck: no JVD, supple Respiratory: no wheezing, no rales, no rhonchi Cardiovascular: RRR, no significant murmur, no rub Gastrointestinal: soft, non-tender, no distention, positive bowel sounds Musculoskeletal: no edema, pulses present Neurological: non-focal, normal sensation, moves all 4 limbs Psychiatric: normal affect, A&O x 3 Skin: no rash, normal turgor Dx/Plan (1) PNA (pneumonia) Code(s): J18.9 - PNEUMONIA, UNSPECIFIED ORGANISM Status: Acute Qualifiers: Pneumonia type: due to unspecified organism Laterality: right Lung location: middle lobe of lung Qualified Code(s): J18.1 - Lobar pneumonia, unspecified organism (2) COPD (chronic obstructive pulmonary disease) Status: Chronic Qualifiers: COPD type: COPD with acute lower respiratory infection Qualified Code(s): J44.0 - Chronic obstructive pulmonary disease with acute lower respiratory infection (3) Cerebrovascular accident (CVA) due to occlusion of left middle cerebral artery Code(s): I63.512 - CEREB INFRC D/T UNSP OCCLS OR STENOS OF LEFT MID CEREB ART Status: Acute (4) Dental abscess Code(s): K04.7 - PERIAPICAL ABSCESS WITHOUT SINUS Status: Acute (5) Depression Code(s): F32.9 - MAJOR DEPRESSIVE DISORDER, SINGLE EPISODE, UNSPECIFIED Status : Acute (6) Left ventricular systolic dysfunction Code(s): I51.9 - HEART DISEASE, UNSPECIFIED Status: Acute (7) Tobacco abuse Code(s): Z72.0 - TOBACCO USE Status: Acute (8) Hyperlipidemia Code(s): E78.5 - HYPERLIPIDEMIA, UNSPECIFIED Status: Chronic Qualifiers: Hyperlipidemia type: unspecified Qualified Code(s): E78.5 - Hyperlipidemia , unspecified (9) Hypertension Code(s): I10 - ESSENTIAL (PRIMARY) HYPERTENSION Status: Chronic Qualifiers: Hypertension type: essential hypertension Qualified Code(s): I10 - Essential (primary) hypertension - Plan cont current plan of care, plan discussed w/ family, continue antibiotics * continue iv rocephin and levaquin * on discharge po levaquin * medication reviewed as below * symptomatic treatment * plan for discharge tomorrow. Review of Systems - Review of Systems ENT: negative: Ear Pain, Ear Discharge, Nose Pain, Nose Discharge, Nose Congestion, Mouth Pain, Mouth Swelling, Throat Pain, Throat Swelling, Other Respiratory: negative: Cough, Dry, Shortness of Breath, Hemoptysis, SOB with Excertion, Pleuritic Pain, Sputum, Wheezing Cardiovascular: negative: Chest Pain, Palpitations, Orthopnea, Paroxysmal Noc. Dyspnea, Edema, Light Headedness, Other Gastrointestinal: negative: Nausea, Vomiting, Abdominal Pain, Diarrhea, Constipation, Melena, Hematochezia, Other Genitourinary: negative: Dysuria, Frequency, Incontinence, Hematuria, Retention , Other Musculoskeletal: negative: Neck Pain, Shoulder Pain, Arm Pain, Back Pain, Hand Pain, Leg Pain, Foot Pain, Other - Medications/Allergies Allergies/Adverse Reactions: Allergies Allergy/AdvReac Type Severity Reaction Status Date / Time No Known Allergies Allergy Verified 05/26/17 21:30 Medications: Current Medications Acetaminophen (Tylenol) 650 mg PO Q4H PRN PRN Reason: Headache/Fever or Pain Last Admin: 05/29/17 20:25 Dose: 650 mg Hydrocodone Bitart/Acetaminophen ([place] 5/325) 1 tab PO Q4H PRN PRN Reason: Moderate Pain (4-6) Last Admin: 05/29/17 11:15 Dose: 1 tab Al Hydroxide/Mg Hydroxide (Maalox) 30 ml PO Q6H PRN PRN Reason: Heartburn or Indigestion Albuterol/Ipratropium (Duoneb) 3 ml NEB [id number] [facility] Last Admin: 05/30/17 07:33 Dose: 3 ml Artificial Tears (Tears Naturale) 0 drop EA EYE PRN PRN PRN Reason: Dry Eyes Aspirin (Aspirin Chewable) 81 mg PO DAILY [facility] Last Admin: 05/30/17 08:12 Dose: 81 mg Atorvastatin Calcium (Lipitor) 20 mg PO HS [facility] Last Admin: 05/29/17 20:26 Dose: 20 mg Carvedilol (Coreg) 3.125 mg PO BID-[facility] Last Admin: 05/30/17 08:11 Dose: 3.125 mg Citalopram Hydrobromide (Celexa) 20 mg PO DAILY [facility] Last Admin: 05/30/17 08:12 Dose: 20 mg Cyanocobalamin (Vitamin B-12) 1,000 mcg PO DAILY [facility] Last Admin: 05/30/17 08:12 Dose: 1,000 mcg Enoxaparin Sodium (Lovenox) 40 mg SC 0900 [facility] Last Admin: 05/30/17 08:12 Dose: 40 mg Famotidine (Pepcid) 20 mg PO BID [facility] Last Admin: 05/30/17 08:12 Dose: 20 mg Folic Acid (Folvite) 1 mg PO DAILY [facility] Last Admin: 05/30/17 08:12 Dose: 1 mg Guaifenesin (Robitussin Sf) 200 mg PO Q4H PRN PRN Reason: Cough Last Admin: 05/30/17 08:15 Dose: 200 mg Guaifenesin (Mucinex) 600 mg PO Q12HR [facility] Last Admin: 05/30/17 08:11 Dose: 600 mg Guaifenesin/Dextromethorphan (Robitussin Dm) 15 ml PO Q4H PRN PRN Reason: Cough Last Admin: 05/28/17 20:43 Dose: 15 ml Hydralazine HCl (Apresoline) 10 mg SLOW IVP Q4H PRN PRN Reason: Systolic BP > 180 Ceftriaxone Sodium 1 gm/ (Sodium Chloride) 100 mls @ 200 mls/hr IVPB Q24HR [facility] Last Admin: 05/29/17 21:38 Dose: 100 mls Levofloxacin 500 mg/ Device 100 mls @ 100 mls/hr IVPB Q24HR [facility] Last Admin: 05/29/17 20:24 Dose: 100 mls Loperamide HCl (Imodium) 2 mg PO PRN PRN PRN Reason: Diarrhea/Loose Stools Loratadine (Claritin) 10 mg PO DAILYPRN PRN PRN Reason: Sinus Symptoms Magnesium Hydroxide (Milk Of Magnesium) 30 ml PO DAILYPRN PRN PRN Reason: Constipation Mineral Oil/White Petrolatum (Eucerin Cream) 0 gm TOP BIDPRN PRN PRN Reason: Dry Skin Mirtazapine (Remeron) 30 mg PO [facility] Last Admin: 05/29/17 20:26 Dose: 30 mg Ondansetron HCl (Zofran Odt) 4 mg PO Q6H PRN PRN Reason: Nausea/Vomiting Ondansetron HCl (Zofran) 4 mg IVP Q6H PRN PRN Reason: Nausea/Vomiting Phenol (Chloraseptic [place] 180 Ml Bot) 0 ml PO PRN PRN PRN Reason: Sore Throat Prednisone (Prednisone) 5 mg PO QAM-WM [facility] Last Admin: 05/30/17 08:11 Dose: 5 mg Senna (Senokot) 2 tab PO HSPRN PRN PRN Reason: Constipation Sodium Chloride ([place] Nasal [place] 0.65%) 0 ml EA NARE QIDPRN PRN PRN Reason: Nasal Congestion Sodium Chloride (Flush - Normal Saline) 10 ml IVF PRN PRN PRN Reason: Saline Flush Trazodone HCl (Desyrel) 25 mg PO [facility] Last Admin: 05/29/17 20:34 Dose: 25 mg Zolpidem Tartrate (Ambien) 5 mg PO HSPRN PRN PRN Reason: Insomnia
[2017-05-30] MEDS: HYDROcodone/Acetaminophen 5/325 mg Tablet PO PRN ×2 (15:54→20:57)
[2017-05-30] MEDS: Mirtazapine 30 MG TAB PO SCH (20:52)
[2017-05-30] MEDS: traZODone HCl 50 MG TAB PO SCH (20:52)
[2017-05-30] MEDS: Atorvastatin Calcium 20 MG TAB PO SCH (20:53)
[2017-05-30] MEDS: cefTRIAXone\\ROCEPHIN 1 GM in Sodium Chloride 0.9% 100 ML IVPB SCH (20:59)
[2017-05-31 05:44] LABS: #Basophils 0.1 thou/uL (0.0-0.2); #Eosinphils 0.2 thou/uL (0.0-0.7); #Lymphocytes 4.6 thou/uL (1.20-3.40); #Monocytes 0.8 thou/uL (0.11-0.59); %Basophils 1.2 % (0.0-1.0); %Lymphocytes 42.6 % (21.0-51.0); %Monocytes 7.7 % (0.0-10.0); Hematocrit 48.6 % (36.0-47.0); Mean Platelet Volume 7.5 fL (7.4-10.4); Red Blood Cell (RBC) Count 4.66 mill/uL (4.20-5.40); White Blood Cell (WBC) Count 10.8 thou/uL (4.8-10.8)
[2017-05-31 06:03] LABS: Anion Gap 11 mmol/L (10-20); BUN (Urea Nitrogen) 16 mg/dL (9.8-20.1); Calc. Creatinine Clearance 60 mL/min (70-130); Calcium 10.4 mg/dL (7.8-10.44); Carbon Dioxide 28 mmol/L (23-31); Chloride 106 mmol/L (98-107); Estimated GFR-MDRD Greater than 90
[2017-05-31] MEDS: Folic Acid 1 MG TAB PO SCH (08:31)
[2017-05-31] MEDS: Cyanocobalamin (Vitamin B-12) 1,000 MCG TAB PO SCH (08:31)
[2017-05-31] MEDS: Carvedilol 3.125 MG TAB PO SCH (08:31)
[2017-05-31] MEDS: Famotidine 20 MG TAB PO SCH (08:31)
[2017-05-31] MEDS: predniSONE 5 MG TAB PO SCH (08:32)
[2017-05-31] MEDS: guaiFENesin ER 600 MG TAB PO SCH (08:32)
[2017-05-31] MEDS: Enoxaparin Sodium 40 MG/0.4 ML SYRINGE SC SCH (08:32)
[2017-05-31 08:34] VITALS: BP 143/80; TEMP 98.3
[2017-05-31] MEDS: HYDROcodone/Acetaminophen 5/325 mg Tablet PO PRN (10:01)
[2017-05-31] MEDS: Diabetic Tussin 200 MG/10 ML UDCUP PO PRN (10:03)
--- NOTE | 2017-05-31 11:10 | DIS ---
DATE OF ADMISSION: 05/26/2017 DATE OF DISCHARGE: 05/31/2017 PRIMARY CARE PHYSICIAN: [facility] call admission. DISCHARGE DISPOSITION: Home. PRIMARY DISCHARGE DIAGNOSIS: Community-acquired bacterial pneumonia. SECONDARY DISCHARGE DIAGNOSES: Chronic obstructive pulmonary disease, history of cerebrovascular ac cident, dental caries, depression, systolic dysfunction, tobacco abuse disorder, hypertension, and d yslipidemia. PRIMARY PROCEDURE/OPERATION: None. RADIOLOGICAL INVESTIGATION: Chest x-ray on admission showed right lower lobe infiltration. CT ches t also showed right lower lobe infiltration. SIGNIFICANT LABORATORY DATA: Hemoglobin 15.2, INR 1.0, sodium 141, creatinine 0.72, folate 5.80. U rine legionella and streptococcal pneumoniae antigen negative. Blood culture negative. Respiratory virus panel negative. DISCHARGE MEDICATIONS: Aspirin 81 mg p.o. daily, Coreg 3.125 mg p.o. b.i.d., Celexa 20 mg p.o. rufus y, vitamin B12 1000 mcg p.o. daily, Pepcid 20 mg p.o. b.i.d., folic acid 1 mg p.o. daily, Levaquin 5 00 mg p.o. daily for 7 days, Remeron 30 mg p.o. at bedtime, Zocor 40 mg p.o. at bedtime, Ventolin 2 puffs q.6 hourly p.r.n., Mucinex 600 mg twice daily for 7 days, trazodone 25 mg p.o. at bedtime, lis inopril 2.5 mg p.o. daily. CONTRAINDICATIONS: NONE. CODE STATUS: FULL CODE. INPATIENT CONSULTANTS: None. ALLERGIES: No known drug allergy. DISCHARGE PLAN: Post hospital, the patient will follow up with primary care physician in 1 week. T he patient's primary care physician is advised to repeat chest x-ray upon followup visit. HOSPITAL COURSE: A 62-year-old female who was admitted by me. Please see my HPI for further detail s. This patient was meeting sepsis criteria. She was having cough, shortness of breath, and subjec tive fever. Her chest x-ray showed right lower lobe infiltration. Her CT chest also showed right l ower lobe infiltration. The patient was admitted to medical floor. She was treated with broad spec trum antibiotic therapy with Rocephin and Levaquin. Pneumonia workup for Strep pneumonia antigen an d Legionella pneumonia antigen negative. Her blood culture remained negative. In entire hospital [facility] [place], she was given IV antibiotic therapy. On discharge, we changed to p.o. Levaquin for another 7 days. We checked her folic acid which was low and that is why we have also prescribed multivitamin therapy upon discharge. The patient was given counseling to avoid tobacco and alcohol product. Choco bai will follow up with primary care physician. The patient is seen and examined at bedside today. PHYSICAL EXAMINATION: VITAL SIGNS: Currently, temperature 98.3, pulse 72, respiratory rate 16, saturation 93%, blood pres sure 143/80, weight 102 pounds. GENERAL: The patient is alert, awake, in no acute distress. HEAD: Normocephalic, atraumatic. LUNGS: Clear. CARDIAC: S1, S2 regular without any murmur. ABDOMEN: Soft and benign. EXTREMITIES: No edema. NEUROLOGIC: Nonfocal examination.
== END 2017-05-31 11:21 | disposition home or self-care (01) | DRG 871 ==
LOC: ERS 17:52 → T4-B 21:12
PROVIDERS: ADMIT Family Medicine; ATTEND Family Medicine
DX: A41.9 Sepsis, unspecified organism (principal); J18.9 Pneumonia, unspecified organism; E43 Unspecified severe protein-calorie malnutrition; Z68.1 Body mass index [BMI] 19.9 or less, adult; E87.6 Hypokalemia; E78.5 Hyperlipidemia, unspecified; I10 Essential (primary) hypertension; D75.89 Other specified diseases of blood and blood-forming organs; J44.9 Chronic obstructive pulmonary disease, unspecified; I51.89 Other ill-defined heart diseases; K04.7 Periapical abscess without sinus; F32.9 Major depressive disorder, single episode, unspecified; F41.9 Anxiety disorder, unspecified; F17.210 Nicotine dependence, cigarettes, uncomplicated; Z86.73 Personal history of transient ischemic attack (TIA), and cerebral infarction without residual deficits
CPT/HCPCS: 36415; 71010; 71250; 80048; 80053; 82553; 82607; 82746; 83605; 83690; 83735; 83880; 84484; 85025; 85610; 85730; 87040; 87633; 87899; 90471; 90732; 93005; 94640; 96365; 96375; G0009; J0696; J1100; J1650; J1956; J2920; J7050; J7506; J7620

== ENCOUNTER 2018-05-26 13:05 | Outpatient (CLI) | payer MEDICARE ==
--- NOTE | 2018-05-26 13:52 | RAD ---
TWO VIEWS CHEST: Date: 05-26-18 Provided Clinical History: Dyspnea. FINDINGS: Comparison is made with 04-04-18. Cardiac and mediastinal silhouette is within normal limits. Lungs appear clear. No pleural fluid or p neumothorax is apparent. Vascular calcification involves the aortic arch. IMPRESSION: No evidence for an acute cardiopulmonary process. POS: [facility]
== END 2018-05-26 13:06 | disposition home or self-care (01) ==
LOC: RAD 13:05
PROVIDERS: ATTEND Internal Medicine Critical Care Medicine
DX: R06.00 Dyspnea, unspecified (principal)
CPT/HCPCS: 71046

== ENCOUNTER 2018-06-09 13:01 | Outpatient (CLI) | payer MEDICARE ==
--- NOTE | 2018-06-09 14:57 | CT ---
CT CHEST NONCONTRAST LOW DOSE SCREENING: Date: 06/09/18 HISTORY: Tobacco abuse. Family history of cancer. COMPARISON: 05/27/17. FINDINGS: Lungs are hyperinflated with bullae most pronounced at the posterior medial aspect of each lung. Scat tered calcified small granulomata. No noncalcified nodules are apparent. No pleural fluid or pneumoth orax. Lack of contrast limits evaluation of the soft tissues. Borderline size subcarinal lymph node is stab le. There is calcification in the arterial structures. IMPRESSION: 1. Lung-RADS Category 1. Negative. Suggest routine follow-up. 2. COPD. 3. Atherosclerosis. POS: [facility]
== END 2018-06-09 13:02 | disposition home or self-care (01) ==
LOC: CT 13:01
PROVIDERS: ATTEND Family Medicine
DX: F17.210 Nicotine dependence, cigarettes, uncomplicated (principal); J44.9 Chronic obstructive pulmonary disease, unspecified; I70.90 Unspecified atherosclerosis
CPT/HCPCS: G0297

== ENCOUNTER 2018-06-13 15:02 | Outpatient (CLI) | payer MEDICARE | END 2018-06-13 15:03 | disposition home or self-care (01) | LOC: BICMAMMO 15:02 | PROVIDERS: ATTEND Student in an Organized Health Care Education/Training Program | DX: Z12.31 Encounter for screening mammogram for malignant neoplasm of breast (principal) | CPT/HCPCS: 77063; 77067 ==

== ENCOUNTER 2018-07-06 13:26 | Outpatient (CLI) | payer MEDICARE | END 2018-07-06 13:27 | disposition home or self-care (01) | LOC: CP 13:26 | PROVIDERS: ATTEND Internal Medicine Critical Care Medicine | DX: J44.9 Chronic obstructive pulmonary disease, unspecified (principal) | CPT/HCPCS: 94060; 94727; 94729 ==

== ENCOUNTER 2020-05-01 22:44 | Inpatient (IN) | payer MEDICARE, OTHER ==
--- NOTE | 2020-05-01 23:07 | RAD ---
Exam: Chest one view HISTORY:Intermittent severe chest pain Comparison: 05/26/2018, 05/26/2017 FINDINGS: Cardiac silhouette: Normal Aorta: Atherosclerosis of the aorta Pulmonary vessels: Normal Costophrenic angles: Clear LUNGS: Hyperinflation. No masses or consolidation. Pneumothorax: None Osseous abnormalities: No acute osseous abnormalities IMPRESSION: COPD. Hyperinflation. No acute cardiopulmonary process.
[2020-05-01] MEDS ORDERED: Aspirin Chewable 81 MG TAB ONE (23:16)
[2020-05-01 23:41] LABS: ALT (SGPT) 19 U/L (8-55); AST (SGOT) 24 U/L (5-34); Albumin 4.6 g/dL (3.4-4.8); Alkaline Phosphatase 114 U/L (40-110); Anion Gap 17 mmol/L (10-20); BUN (Urea Nitrogen) 9 mg/dL (9.8-20.1); Bilirubin, Total 0.5 mg/dL (0.2-1.2); Calc. Creatinine Clearance 0 mL/min (70-130); Calcium 11.4 mg/dL (7.8-10.44); Carbon Dioxide 26 mmol/L (23-31); Chloride 101 mmol/L (98-107); Estimated GFR-MDRD 81; Globulin 3.2 g/dL (2.4-3.5); Glucose 128 mg/dL (80-115); Potassium 3.4 mmol/L (3.5-5.1); Protein, Total 7.8 g/dL (6.0-8.3); Sodium 141 mmol/L (136-145)
[2020-05-01 23:43] LABS: Hemoglobin 18.5 g/dL (12.0-16.0); Mean Corpuscular HGB CONC 34.1 g/dL (32.0-36.0); Mean Corpuscular Hemoglobin 35.3 pg (27.0-31.0); Mean Platelet Volume 9.2 fL (7.4-10.4); Platelet Count 129 thou/uL (130-400); RBC Distribution Width 13.6 % (11.5-14.5); Red Blood Cell (RBC) Count 5.23 mill/uL (4.20-5.40); White Blood Cell (WBC) Count 9.6 thou/uL (4.8-10.8)
[2020-05-01 23:59] LABS: #Basophils 0.1 thou/uL (0.0-0.2); #Eosinphils 0.2 thou/uL (0.0-0.7); #Lymphocytes 2.3 thou/uL (1.20-3.40); #Monocytes 0.6 thou/uL (0.11-0.59); #Neutrophils 6.3 thou/uL (1.40-6.50); %Basophils 0.6 % (0.0-1.0); %Eosinophils 2.5 % (0.0-10.0); %Lymphocytes 24.2 % (21.0-51.0); %Monocytes 6.6 % (0.0-10.0); %Neutrophils 66.1 % (42.0-75.0); RBC Morphology Normal
[2020-05-02] MEDS ORDERED: niCARdipine 20MG In NaCl 20 MG/200 ML BAG ONE (00:01)
[2020-05-02 00:12] LABS: CKMB 2.4 ng/mL (0-6.6)
[2020-05-02] MEDS ORDERED: Ondansetron PF 4 MG/2 ML Vial ONE (00:22)
[2020-05-02] MEDS ORDERED: Nitroglycerin 0.4 MG TAB (25 Tab Bottle) SL PRN ×2 (00:35→12:10)
[2020-05-02] MEDS ORDERED: Heparin 25,000 units/D5W 500 ML IVPB SCH (00:45)
[2020-05-02] MEDS ORDERED: Heparin 10,000 UNITS/ 10 ML VIAL SLOW IVP SCH (00:45)
[2020-05-02] MEDS ORDERED: Enoxaparin Sodium 100 MG/ML SYRINGE ONE (00:55)
--- NOTE | 2020-05-02 00:56 | PDOC.EVN ---
Event Note - Event Note Event Note: [id number] HP
[2020-05-02 01:01] LABS: Hemoglobin 17.8 g/dL (12.0-16.0); Platelet Count 129 thou/uL (130-400)
--- NOTE | 2020-05-02 01:17 | HP ---
CHIEF COMPLAINT: Chest pain. HISTORY OF PRESENT ILLNESS: Ms. Castro is a 65-year-old female with past medical history of hypertension, hyperlipidemia, cigarette smoker, not taking her medications, presents to the emergency room with chest pain on and off for the past week. Severe chest pain started an hour prior to arrival. Workup in the emergency room, the patient was found to be hypertensive with blood pressure 190/115. Lab work, the patient had elevated troponin of 4.8 and EKG showed nonspecific ST changes. In the emergency room, the patient was placed on IV Cardene drip for elevated blood pressure. Was given aspirin and patient will be started on IV heparin. The patient denies abdominal pain, fever, or chills. The patient is being admitted to the hospital for further management. PAST MEDICAL HISTORY: 1. Hypertension. 2. Hyperlipidemia. 3. Cigarette smoker. 4. Anxiety. 5. CVA. 6. Chronic obstructive pulmonary disease. PAST SURGICAL HISTORY: 1. . 2. Polyp removed from the colon. PAST PSYCHIATRIC HISTORY: Depression. SOCIAL HISTORY: The patient currently uses drugs? K2. The patient currently uses tobacco, smokes cigarettes. She smokes a pack a day. Denies alcohol abuse. FAMILY HISTORY: Reviewed and noncontributory. HOME MEDICATIONS: Please see home medication reconciliation form for updated medications but the patient is not taking her medications. ALLERGIES: NO KNOWN ALLERGIES. REVIEW OF SYSTEMS: Review of 14 systems negative except for what is mentioned in history of present illness. PHYSICAL EXAMINATION: GENERAL: The patient is awake, alert, in moderate distress. VITAL SIGNS: Blood pressure initially was high at 211/98. Recent blood pressure on Cardene drip is 125/70, pulse is 83, respiratory rate is 22, oxygen saturation 94% on room air. HEENT: Normocephalic, atraumatic. NECK: Supple. No JVD. CHEST: Fair bilateral air entry. HEART: S1, S2. Regular. ABDOMEN: Soft, nontender. Bowel sounds present. NEUROLOGIC: Awake, alert, oriented, moving extremities. PSYCH: Unable to assess. EXTREMITIES: No clubbing or cyanosis. SKIN: No apparent rash. LABORATORY DATA: Troponin is 4.8, elevated. Hemoglobin 18.5, potassium 3.4. Chest x-ray, hyperinflation, otherwise unremarkable. ASSESSMENT: 1. Lcu-YE-iblvkveup myocardial infarction. 2. Hypertensive urgency/emergency. 3. Hyperlipidemia. 4. Cigarette smoker. 5. Chronic obstructive pulmonary disease. 6. Noncompliance. PLAN: 1. Admit to CCU. 2. The patient currently on Cardene drip. Try to titrate and start the patient on beta carola. 3. Aspirin. 4. Anticoagulation. Start IV heparin. 5. Consult Cardiology in a.m. for evaluation and further management. 6. Reconcile home medications. 7. DVT prophylaxis. The patient is on heparin drip. 8. Expected length of stay, 2 midnights or more. Job ID: [id number]
[2020-05-02 01:40] LABS: Critical Call Chem Troponin I RESULT DECREASING; Troponin I 3.711 ng/mL (< 0.028)
[2020-05-02] MEDS ORDERED: Heparin 10,000 UNITS/ 10 ML VIAL ONE (01:59)
[2020-05-02] MEDS ORDERED: Heparin 25,000 units/D5W 500 ML ONE (01:59)
[2020-05-02 06:59] LABS: Anion Gap 15 mmol/L (10-20); BUN (Urea Nitrogen) 8 mg/dL (9.8-20.1); Calc. Creatinine Clearance 46 mL/min (70-130); Calcium 11.8 mg/dL (7.8-10.44); Carbon Dioxide 25 mmol/L (23-31); Chloride 104 mmol/L (98-107); Estimated GFR-MDRD Greater than 90; Glucose 102 mg/dL (80-115); Potassium 3.8 mmol/L (3.5-5.1); Sodium 140 mmol/L (136-145)
[2020-05-02 07:01] LABS: #Basophils 0.1 thou/uL (0.0-0.2); #Eosinphils 0.1 thou/uL (0.0-0.7); #Lymphocytes 2.5 thou/uL (1.20-3.40); #Monocytes 0.6 thou/uL (0.11-0.59); #Neutrophils 5.7 thou/uL (1.40-6.50); %Basophils 1.4 % (0.0-1.0); %Eosinophils 0.6 % (0.0-10.0); %Lymphocytes 27.8 % (21.0-51.0); %Monocytes 6.4 % (0.0-10.0); %Neutrophils 63.9 % (42.0-75.0); Hemoglobin 17.7 g/dL (12.0-16.0); Mean Corpuscular HGB CONC 32.5 g/dL (32.0-36.0); Mean Platelet Volume 9.2 fL (7.4-10.4); Platelet Count 117 thou/uL (130-400); RBC Distribution Width 13.7 % (11.5-14.5); Red Blood Cell (RBC) Count 5.21 mill/uL (4.20-5.40)
[2020-05-02 07:21] LABS: Troponin I 6.841 ng/mL (< 0.028)
[2020-05-02] MEDS: Famotidine/PF 20 mg/2ml Vial SLOW IVP SCH ×2 (08:42→21:39)
[2020-05-02] MEDS ORDERED: Metoprolol Tartrate 25 MG TAB PO SCH (09:00)
[2020-05-02] MEDS ORDERED: Losartan 25 MG TAB PO SCH (09:00)
[2020-05-02] MEDS ORDERED: Aspirin 325 mg Enteric Coated Tablet PO SCH (09:00)
[2020-05-02] MEDS: Ondansetron PF 4 MG/2 ML Vial IVP PRN (09:24)
--- NOTE | 2020-05-02 09:29 | PDOC.BPN ---
- Brief Progress Note Pt was seen and examined. 65 yo F admitted after midnight for NSTEMI. Pt is on heparin gtt, currently chest pain free. She is being eval by cardiology for [facility]. cont current mgt. check Echo. Change BB to Toprol XL, daily dosing to increase compliance. Pt counseled regarding to smoking cessation. Cont current mgt, pending cardiology recommendations.
[2020-05-02] MEDS ORDERED: Sodium Chloride 0.9% 1,000 ML IV SCH ×2 (09:30→12:12)
[2020-05-02] MEDS ORDERED: Midazolam HCl 2 mg/2 ml Vial ONE (10:55)
[2020-05-02] MEDS ORDERED: Fentanyl 100 MCG/2 ML VIAL ONE ×2 (11:15→11:50)
--- NOTE | 2020-05-02 11:29 | CON ---
DATE OF CONSULTATION: 05/02/2020 REASON FOR CONSULTATION: Gnq-MR-exqjhpalt myocardial infarction. HISTORY OF PRESENT ILLNESS: Ms. Castro is a 65-year-old woman with multiple medical problems with a hlk-KL-urnfflulu infarction. Ms. Castro states she has been feeling sick for at least a year. She has been losing weight. She said she weighed about 140 pounds and now she is down to 86 pounds. She says the part of the problem is she does not have teeth, and she is unable to eat. The patient also has chronic abdominal pain and nausea. Yesterday, she had abdominal pain and nausea and it went up into her chest, "felt like heartburn." The pain persisted and ultimately came to the hospital. She is found to have increased troponin level. The patient has a long history of smoking. She said she is still smoking two packs of cigarettes per day. The patient also states that she is using a "synthetic marijuana," she thinks it might be "K2" but she is really not sure what is in it. She said it is "not helping." The patient's overall health has been deteriorating. MEDICATIONS AT HOME: It is very unclear what she is actually taking. Please see the nurse's notes, but she is really unable to tell me what she is actually taking. The listed medicines are 1. Aspirin. 2. Carvedilol. 3. Celexa. 4. Lisinopril. 5. Ventolin. 6. Levofloxacin. 7. Folic acid. 8. Pepcid. 9. Remeron. 10. Simvastatin. 11. Trazodone. ALLERGIES: NONE KNOWN. OTHER PAST HISTORY: She has history of middle cerebral artery stroke five years ago. She said she has mostly recovered, just has some problems with speech occasionally. SOCIAL HISTORY: As mentioned, continues to smoke two packs of cigarettes per day. She said "I'm trying to cut down." PHYSICAL EXAMINATION: GENERAL: This is a pleasant 65-year-old woman. She looks much older than her chronologic age of 65. She is 5 feet 6 inches tall. She weighs 86 pounds. Her blood pressure earlier 178/84, now it is 132/73, pulse 82, regular. HEENT: Eyes, sclerae nonicteric. Mouth, mucous membranes moist. NECK: Supple. No lymphadenopathy. LUNGS: Clear anteriorly and laterally. CARDIAC: I do not hear murmur, rub, or gallop. ABDOMEN: Soft and nontender. She is very underweight. EXTREMITIES: No clubbing or cyanosis. She has no edema. Peripheral pulses are diminished. I feel femoral pulses, but they are diminished. Pedal pulses are palpable in the posterior tibial, but very diminished. Also popliteal pulses diminished. PERTINENT LABORATORY DATA: The potassium was 3.4, now it is 3.8, creatinine 0.77, calcium is 11.8. Looking back all the way back to 2013, she did have an elevated calcium of 11.2 and 11.4 in 2017. Other laboratory; her alkaline phosphatase is 114. Red blood cell count 18.5, suspect related to smoking, high hemoglobin, platelet count is low at 117. EKG, sinus rhythm, ST depression in lead II and aVF with what looks like probably left ventricular hypertrophy as well. Chest x-ray, COPD, hyperinflation. ASSESSMENT: 1. Fhf-VP-jtsmnkfpo myocardial infarction. 2. Continued tobacco use. 3. Substance dependence, she uses "synthetic marijuana," but she does not know what is in it. I have ordered a toxicology screen. 4. Severe weight loss. 5. Hypercalcemia. 6. Severe dental problems as outlined above. 7. Previous stroke. 8. Peripheral vascular disease. PLAN: Explained to the patient and also explained to the patient's daughter by phone that the patient has severe medical problems and is at high risk of adverse outcome. In view of the jeu-QK-rxyvdhfox infarction, I recommend she proceed to cardiac catheterization. Discussed the risks, stroke, heart attack, loss of blood supply to the leg or kidney, stent occlusion, vessel perforation, stent thrombosis, and . With her multiple medical problems, I think there is a very high risk of complications. We will attempt to go from the femoral arteries. The radial artery is a potential site for catheterization, but she is so small that may be problematic as well. Discussed risk of serious adverse outcome including . The patient understands and wishes to proceed. Also discussed this with the patient's daughter over the phone. They understand and wished to proceed. Job ID: [id number]
[2020-05-02] MEDS ORDERED: Nitroglycerin 4.9 GM Bottle ONE (11:36)
[2020-05-02] MEDS ORDERED: Nitroglycerin 2% Ointment 1 INCH/1 GM Packet ONE (11:39)
[2020-05-02] MEDS ORDERED: Enalaprilat Dihydrate 1.25 MG/ML VIAL ONE (11:39)
[2020-05-02] MEDS ORDERED: Acetaminophen/Codeine 30-300mg Tablet PO PRN ×2 (12:10)
[2020-05-02] MEDS ORDERED: Sodium Chloride 0.9% 200 ML IV PRN (12:10)
[2020-05-02] MEDS ORDERED: Iopamidol 370 76% 100 ML VIAL ONE (13:17)
[2020-05-02] MEDS ORDERED: Iopamidol 370 76% 50 ML VIAL FS ONE (13:17)
[2020-05-02 13:30] LABS: SARS-CoV-2 MS2 Positive; SARS-CoV-2 N Gene Negative; SARS-CoV-2 S Gene Negative; SARS-CoV-2 by NAA Not Detected (NotDetected); SARS-CoV-2 orf1ab Negative
[2020-05-02] MEDS ORDERED: Amlodipine 5 MG TAB PO SCH (17:15)
[2020-05-02 19:54] LABS: Medtox Reader # READER 4
[2020-05-02 19:55] LABS: Medtox Control Line Valid? VALID (VALID)
[2020-05-02 19:56] LABS: Amphetamine Not Detected (NotDetected); Barbiturates Screen Not Detected (NotDetected); Benzodiazepine Screen Not Detected (NotDetected); Cocaine Metabolite Screen Not Detected (NotDetected); Methadone Not Detected (NotDetected); Methamphetamine Not Detected (NotDetected); Opiate Screen Not Detected (NotDetected); Oxycodone Screen Not Detected (NotDetected); Phencyclidine (PCP) Not Detected (NotDetected); THC/Cannabinoid Screen Not Detected (NotDetected); Tricyclic Screen Not Detected (NotDetected)
[2020-05-02] MEDS: Atorvastatin Calcium 40 MG TAB PO SCH (21:22)
[2020-05-02] MEDS: Lisinopril 10 MG TAB PO SCH (21:22)
[2020-05-02] MEDS ORDERED: Famotidine 20 MG TAB PO SCH (21:30)
[2020-05-03 04:59] LABS: #Basophils 0.1 thou/uL (0.0-0.2); #Eosinphils 0.1 thou/uL (0.0-0.7); #Lymphocytes 2.5 thou/uL (1.20-3.40); #Monocytes 0.6 thou/uL (0.11-0.59); #Neutrophils 3.6 thou/uL (1.40-6.50); %Basophils 0.8 % (0.0-1.0); %Eosinophils 1.8 % (0.0-10.0); %Lymphocytes 36.5 % (21.0-51.0); %Monocytes 9.3 % (0.0-10.0); %Neutrophils 51.6 % (42.0-75.0); Hemoglobin 15.1 g/dL (12.0-16.0); Mean Corpuscular HGB CONC 32.4 g/dL (32.0-36.0); Mean Corpuscular Hemoglobin 34.1 pg (27.0-31.0); Mean Platelet Volume 9.5 fL (7.4-10.4); Platelet Count 120 thou/uL (130-400); RBC Distribution Width 13.5 % (11.5-14.5); Red Blood Cell (RBC) Count 4.43 mill/uL (4.20-5.40); White Blood Cell (WBC) Count 6.9 thou/uL (4.8-10.8)
[2020-05-03 05:31] LABS: Anion Gap 8 mmol/L (10-20); BUN (Urea Nitrogen) 7 mg/dL (9.8-20.1); Calc. Creatinine Clearance 59 mL/min (70-130); Calcium 9.9 mg/dL (7.8-10.44); Carbon Dioxide 29 mmol/L (23-31); Cardiac Risk 6.1 (Less than 4.5); Chloride 107 mmol/L (98-107); Cholesterol 178 mg/dl (< 200 Desired); Estimated GFR-MDRD Greater than 90; Glucose 75 mg/dL (80-115); HDL Cholesterol 29 mg/dL (>60 Neg Risk); LDL Cholesterol, Calculated 130 mg/dL; Potassium 3.4 mmol/L (3.5-5.1); Sodium 141 mmol/L (136-145); Triglycerides 95 mg/dL (Less than 150)
[2020-05-03] MEDS: Ondansetron PF 4 MG/2 ML Vial IVP PRN ×2 (07:08→15:16)
[2020-05-03] MEDS: Aspirin 81 mg Enteric Coated Tablet PO SCH (08:38)
[2020-05-03] MEDS: Lisinopril 10 MG TAB PO SCH ×2 (08:38→21:46)
[2020-05-03] MEDS: Amlodipine 5 MG TAB PO SCH (08:38)
[2020-05-03] MEDS ORDERED: Famotidine 20 MG TAB PO SCH (09:00)
--- NOTE | 2020-05-03 09:07 | PRG ---
DATE OF SERVICE: 05/03/2020 SUBJECTIVE: Ms. Castro is complaining of nausea, vomiting, similar to what she has been having last few days, which contributed to her admission. She has no chest pain. OBJECTIVE: VITAL SIGNS: Blood pressure 148/81, pulse 80. LUNGS: Clear. CARDIAC: Normal S1, normal S2. EXTREMITIES: Both extremities are warm and dry. ASSESSMENT: 1. Depressed left ventricular function, ejection fraction 25%. 2. Coronary artery disease, best treated medically. 3. Severe peripheral vascular disease with chronic occlusion of the right iliac, hgfl-ge-tdxiyaaq stenosis in the left iliac, left iliac collateralizes the right leg. 4. Continued smoking. 5. Nausea and abdominal discomfort and weight loss of uncertain etiology. She weighs 93 pounds. 6. Hypertension. PLAN: 1. She is on lisinopril 10 mg twice a day. 2. Metoprolol long-acting 50 mg a day. 3. Aspirin 81 mg. 4. Atorvastatin 40 mg a day. 5. Amlodipine 5 mg a day to help with blood pressure. 6. I have requested a LifeVest Zoll device. Hopefully, her ejection fraction will improve. 7. The patient uses "synthetic marijuana." I have really urged her to stop using these type of drugs as there is really not clear what is in these drugs and she is certainly taking a risk especially with her heart disease by consuming these drugs. Drug screen was negative obtained yesterday. Job ID: [id number]
[2020-05-03 14:02] VITALS: BMI 15.0
[2020-05-03] MEDS ORDERED: Polyethylene Glycol 3350 17 GM Packet PO SCH (16:45)
[2020-05-03] MEDS ORDERED: Mineral Oil ENEMA PR SCH (17:00)
--- NOTE | 2020-05-03 18:16 | PDOC.HOSPP ---
- Subjective Subjective: Patient was seen examined at bedside. Patient continued to have nausea, and associated with 50 pound weight loss. I have discussed with Dr. Harrison. He did recommend GI eval. - Objective Vital Signs & Weight: Vital Signs (12 hours) Temp Pulse Pulse Pulse Resp BP BP 05/03/20 15:38 97.9 F 55 L 18 05/03/20 11:12 97.9 F 69 18 05/03/20 09:31 65 56 L 163/82 H 177/79 H 05/03/20 07:20 05/03/20 07:04 97.6 F 79 20 BP BP Pulse Ox Pulse Ox Pulse Ox 05/03/20 15:38 119/63 93 L 05/03/20 11:12 145/74 H 94 L 05/03/20 09:31 97 98 05/03/20 07:20 95 05/03/20 07:04 141/81 H 97 Weight Admit Weight 86 lb 6.4 oz Weight 93 lb 1 oz I&O: 05/02/20 05/03/20 05/04/20 06:59 06:59 06:59 Intake Total 1280 600 Output Total 500 300 Balance 780 300 Result Diagrams: 05/03/20 04:21 05/03/20 04:21 Hospitalist ROS - Medication Medications: Active Medications Generic Name Dose Route Start Last Admin Trade Name Freq PRN Reason Stop Dose Admin Acetaminophen/Codeine Phosphate 1 tab 05/02/20 12:10 05/03/20 12:42 Tylenol #3 PO 1 tab Q4H PRN Administration Mild Pain (1-3) Acetaminophen/Codeine Phosphate 2 tab 05/02/20 12:10 05/03/20 16:38 Tylenol #3 PO 2 tab Q4H PRN Administration Moderate Pain (4-6) Amlodipine Besylate 5 mg 05/03/20 09:00 05/03/20 08:38 Norvasc PO 5 mg DAILY ANAYELI Administration Aspirin 81 mg 05/03/20 09:00 05/03/20 08:38 Ecotrin PO 81 mg DAILY ANAYELI Administration Atorvastatin Calcium 40 mg 05/02/20 21:00 05/02/20 21:22 Lipitor PO 40 mg HS ANAYELI Administration Lisinopril 10 mg 05/02/20 21:00 05/03/20 08:38 Zestril PO 10 mg BID ANAYELI Administration Metoprolol Succinate 50 mg 05/02/20 09:00 05/03/20 08:38 Toprol Xl PO 50 mg DAILY ANAYELI Administration Mineral Oil 133 ml 05/03/20 17:00 05/03/20 17:20 Fleet Mineral Oil ME 05/03/20 19:00 133 ml NOW ANAYELI Administration Polyethylene Glycol 17 gm 05/03/20 16:45 05/03/20 17:20 Miralax PO 05/03/20 18:45 17 gm NOW ANAYELI Administration - Exam General Appearance: NAD, awake alert, ill appearing Eye: PERRL, anicteric sclera ENT: normocephalic atraumatic Neck: supple, symmetric, no JVD Heart: RRR, no murmur, no gallops Respiratory: CTAB, no wheezes Gastrointestinal: soft, non-tender, non-distended Extremities: no clubbing, no edema Skin: normal turgor Neurological: cranial nerve grossly intact Musculoskeletal: normal tone Psychiatric: normal affect, normal behavior, A&O x 3 Hosp A/P - Plan #NSTEMI, status post left heart cath. Patient appears to have a Takotsubo's cardiomyopathy, with severe depressed EF, 25%. Medical management was recommended. #CHF - systolic, chronic. compensated. #Chronic nausea with associated weight loss, about 50 lbs in the past year #Hypertension, blood pressure is elevated #Recreational drug use, patient reports use "synthetics marijuana", UDS neg #COPD #Medical noncompliance. 05/03/20 Patient status post left heart cath, medical management is recommended. Continue with beta-blockers, TAE inhibitor. Norvasc was added for blood pressure control. BP improved. Continue aspirin/statin therapy. I have discussed with Dr. Carrero, he recommends LifeVest. Also a GI eval given her chronic nausea as well as significant weight loss in the past year. Add PPI BID empiric. GI consult. Patient was counseled regards to smoking cessation, and avoid recreational drug use.
--- NOTE | 2020-05-03 20:34 | CON ---
DATE OF CONSULTATION: 05/03/2020 REASON FOR CONSULTATION: Nausea, vomiting, and abdominal pain. CONSULTING PROVIDER: Herbert Gibson MD HISTORY OF PRESENT ILLNESS: The patient is a 65-year-old female with past medical history of hypertension, hyperlipidemia, cerebrovascular accident, anxiety, COPD, and tobacco abuse, initially presenting with complaints of chest pain. She states that she had been having chest pain intermittently for the last week with severe exacerbation of this chest pain shortly prior to admission. While in the ER, the patient was noted to be significantly hypertensive and initial blood draws showed a significant troponin level increased consistent with a non-ST elevation myocardial infarction. She was subsequently admitted to the hospital and placed on IV Cardene drip and is currently being followed by Cardiology for this particular condition. However, during the course of this admission, she states that she has been having chronic nausea, vomiting, and abdominal pain that has been present for at least the last year. Concerning her nausea and vomiting, she states that over the last year, she would have intermittent episodes of this nausea and vomiting occurring once every three days, but has progressively gotten worse over the last 2 months to the point, where it now occurring daily. This nausea vomiting is intermittent, would occur primarily within 30 to 45 minutes after eating any meals, would last for 3 to 4 hours and then slowly reside until the next meal was consumed. She has attempted using antacids in the form of Tums/Rolaids with no significant relief in this nausea and vomiting. She also endorses the presence of increased left flank pain that has also been present for the last year that she characterizes as an aching type sensation, it is nonradiating, intermittent, would occur once every 1 to 2 days and last for hours in duration and reach a severity of 8/10. This pain would be worse with twisting movements only and better with consumption of pain medications (primarily NSAIDs) and possibly having a bowel movement. During the course of this last year. She also endorses increased life stressors, diaphoresis, and constipation with the patient would have 1 solid bowel movement every two weeks consistent of rock/kirti ([employer] Stool Scale 1). She also endorses an approximate 50 pounds weight loss over the last two years, but attributes this to decreased food consumption secondary to her nausea, vomiting, and life stressors. Currently, she denies any hematemesis, melena, hematochezia, dysphagia, odynophagia, or diarrhea. Of note, the patient underwent a colonoscopy on July 14, 2018, which showed the presence of 2 polyps in the ascending colon at the ileocecal valve measuring 2 to 5 mm in size. Pathology report showed that they were hyperplastic in nature. However, she also had a small ulceration located only at the splenic flexure with biopsies at that time consistent with focal acute colitis with no evidence of chronicity, inflammatory bowel disease, or ischemia (most likely felt due to chemical injury due to colonic prep or NSAID use). REVIEW OF SYSTEMS: A 10-category review of systems was obtained with all responses negative except for the pertinent positives as listed in HPI. PAST MEDICAL HISTORY: As per HPI. PAST SURGICAL HISTORY: and colonoscopy with polypectomy. FAMILY HISTORY: Her sister was diagnosed with colon cancer after the age of 60 with no other family members with GI malignancies. SOCIAL HISTORY: Smokes approximately 1 pack per day of tobacco. Denies any alcohol abuse. She does also concurrently use synthetic marijuana in the form of K2 and has been using this on a weekly basis. OUTPATIENT MEDICATIONS: Reviewed. ALLERGIES: NO KNOWN DRUG ALLERGIES. PHYSICAL EXAMINATION: VITAL SIGNS: Temperature 97.9, pulse 55, blood pressure 119/63, respiratory rate 18, and saturating 93% on room air. GENERAL: The patient was lying in bed, in no acute distress. Alert and oriented x4. HEENT: Normocephalic and atraumatic. NECK: Supple. No JVD or scleral icterus noted. CARDIOVASCULAR: Regular rate and rhythm with no discernible murmurs, gallops, or rubs. RESPIRATORY: Clear to auscultation bilaterally with no discernible wheezes or rales, although this was only present after having the patient cough multiple times to clear mucus within the airways. ABDOMEN: Normoactive bowel sounds. Soft, nontender, and nondistended. EXTREMITIES: No cyanosis, clubbing, or edema. LABORATORY DATA: CBC with a white blood cell count of 6.9, hemoglobin 15.1, hematocrit 46.8, and platelets 120. Chemistry with a sodium of 141, potassium 3.4, chloride 107, CO2 of 29, BUN 7, creatinine 0.64, glucose 75, AST 24, ALT 19, alkaline phosphatase 114, and total bilirubin 0.5. Most recent troponin from May 02 was 6.8. Drug of abuse screen was negative for illicit substances. IMAGING DATA: Chest x-ray was obtained on May 01, 2020, which showed hyperinflation of the lungs consistent with COPD, but no other acute cardiopulmonary process. The patient also underwent colonoscopy on July 14, 2018 with two 2 to 5 mm polyps removed from the ascending colon at the ileocecal valve that were read as hyperplastic polyps on pathology report and ulceration was also seen at the splenic flexure with biopsies consistent with focal active colitis without chronic features with the more likely etiology being prep effect versus NSAID use. ASSESSMENT AND PLAN: The patient is a 65-year-old female with past medical history of hypertension, hyperlipidemia, CVA, anxiety, COPD, and tobacco abuse, now presenting with a zaz-XJ-pcfikohnu NH. In addition to chronic nausea, vomiting, and left flank pain, most likely due to constipation. Nausea and vomiting/abdominal pain. The patient has been having increased nausea, vomiting, and left flank pain that has been present for the last year that initially was occurring once every three days, but has not been in increasing frequency, now occurring almost daily. Will occur within 30 or 45 minutes after meals and last for 3 to 4 hours with slow resolution of pain at that point in time. When she does have these episodes of vomiting, sometimes they will wake her up in the middle of the night and consists primarily of vomiting of clear fluid or ingested food shortly before going to sleep. Concerning her nausea and vomiting, this could be related to acid reflux made worse by ingestion of certain foods and/or smoking tobacco and especially with eating meals shortly before bedtime, which could further exacerbate any sort of acid reflux symptoms. However, she also has a history of having one bowel movement every two weeks with significant straining/abdominal pressure in order to facilitate defecation and when she does have a bowel movement, it is coming out [place] 1 in terms of stool form indicative of delayed colonic transit. At this point, given her significant constipation, it could potentially generate the left flank pain, the nausea and vomiting as part of her constellation of symptoms. Recommendations; 1. Would place the patient on a clear liquid diet for the time being in order to facilitate passage through the gastrointestinal tract. 2. Would consider administration of an enema to break apart any distal hard stool plug that may be preventing adequate defecation. 3. Would place the patient on MiraLAX 17 g twice daily with consideration of having the patient drink 4 L of GoLYTELY, if not responding to treatment. 4. Would attempt to advance the patient to a higher fiber diet if slowly responding to treatment. 5. Would continue pantoprazole 40 mg b.i.d. in light of possible acid reflux contributing to her nausea and vomiting. 6. In light of her recent non-ST segment elevation myocardial infarction, no endoscopic available evaluation is indicated at this time. We will continue to monitor. Please call with any questions. Job ID: [id number]
[2020-05-03] MEDS ORDERED: Sodium Chloride 0.9% 10 ML ONE (21:00)
[2020-05-03] MEDS: Atorvastatin Calcium 40 MG TAB PO SCH (21:46)
[2020-05-03] MEDS: Pantoprazole 40 MG GRANULES PACKET PO SCH (21:47)
[2020-05-03] MEDS: Ondansetron PF 4 MG/2 ML Vial IVP SCH (21:47)
[2020-05-04 00:56] LABS: Platelet Count 117 thou/uL (130-400)
[2020-05-04 04:54] LABS: #Basophils 0.1 thou/uL (0.0-0.2); #Eosinphils 0.2 thou/uL (0.0-0.7); #Lymphocytes 2.6 thou/uL (1.20-3.40); #Monocytes 0.6 thou/uL (0.11-0.59); #Neutrophils 3.6 thou/uL (1.40-6.50); %Basophils 1.4 % (0.0-1.0); %Eosinophils 3.2 % (0.0-10.0); %Lymphocytes 36.5 % (21.0-51.0); %Monocytes 8.8 % (0.0-10.0); %Neutrophils 50.2 % (42.0-75.0); Hemoglobin 14.6 g/dL (12.0-16.0); Mean Corpuscular HGB CONC 31.4 g/dL (32.0-36.0); Mean Corpuscular Hemoglobin 32.8 pg (27.0-31.0); Mean Platelet Volume 9.1 fL (7.4-10.4); Platelet Count 119 thou/uL (130-400); RBC Distribution Width 13.4 % (11.5-14.5); Red Blood Cell (RBC) Count 4.43 mill/uL (4.20-5.40); White Blood Cell (WBC) Count 7.2 thou/uL (4.8-10.8)
[2020-05-04 05:17] LABS: Anion Gap 10 mmol/L (10-20); BUN (Urea Nitrogen) 4 mg/dL (9.8-20.1); Calc. Creatinine Clearance 59 mL/min (70-130); Calcium 9.7 mg/dL (7.8-10.44); Carbon Dioxide 28 mmol/L (23-31); Chloride 106 mmol/L (98-107); Estimated GFR-MDRD Greater than 90; Glucose 79 mg/dL (80-115); Magnesium 1.9 mg/dL (1.6-2.6); Potassium 3.2 mmol/L (3.5-5.1); Sodium 141 mmol/L (136-145)
[2020-05-04] MEDS ORDERED: Electrolyte Replacement Protoc 1 EACH EACH FS ONE (09:19)
[2020-05-04] MEDS ORDERED: Potassium Chloride 20 MEQ TAB PO SCH (09:30)
[2020-05-04] MEDS ORDERED: Cyanocobalamin (Vitamin B-12) 1,000 MCG TAB PO SCH (09:30)
[2020-05-04] MEDS ORDERED: Folic Acid 1 MG TAB PO SCH (09:30)
[2020-05-04] MEDS ORDERED: Multivit, Therapeutic 1 TAB PO SCH (09:30)
[2020-05-04] MEDS: Amlodipine 5 MG TAB PO SCH (09:59)
[2020-05-04] MEDS: Lisinopril 10 MG TAB PO SCH ×2 (10:00→20:53)
[2020-05-04] MEDS: Aspirin 81 mg Enteric Coated Tablet PO SCH (10:01)
[2020-05-04] MEDS: Pantoprazole 40 MG GRANULES PACKET PO SCH ×2 (10:01→20:53)
[2020-05-04] MEDS: Polyethylene Glycol 3350 17 GM Packet PO SCH ×2 (10:03→20:55)
[2020-05-04] MEDS: Ondansetron PF 4 MG/2 ML Vial IVP SCH ×2 (10:08→20:54)
[2020-05-04 10:57] LABS: Phosphorus 2.5 mg/dL (2.3-4.7)
[2020-05-04] MEDS ORDERED: Magnesium Citrate 300 ML BOT PO SCH (11:00)
--- NOTE | 2020-05-04 15:19 | PDOC.CPN ---
- Subjective Date: 05/04/20 Time: 15:32 Interval history: the pt seen and examined. No overnight events. No cardiac complaints. - Objective Allergies/Adverse Reactions: Allergies Allergy/AdvReac Type Severity Reaction Status Date / Time No Known Allergies Allergy Verified 05/02/20 06:29 Visit Medications: Current Medications Acetaminophen/Codeine Phosphate (Tylenol #3) 1 tab PO Q4H PRN PRN Reason: Mild Pain (1-3) Last Admin: 05/03/20 12:42 Dose: 1 tab Acetaminophen/Codeine Phosphate (Tylenol #3) 2 tab PO Q4H PRN PRN Reason: Moderate Pain (4-6) Last Admin: 05/03/20 16:38 Dose: 2 tab Amlodipine Besylate (Norvasc) 5 mg PO DAILY COUNT INCLUDES THE [facility] Last Admin: 05/04/20 09:59 Dose: 5 mg Aspirin (Ecotrin) 81 mg PO DAILY COUNT INCLUDES THE [facility] Last Admin: 05/04/20 10:01 Dose: 81 mg Atorvastatin Calcium (Lipitor) 40 mg PO HS COUNT INCLUDES THE [facility] Last Admin: 05/03/20 21:46 Dose: 40 mg Cyanocobalamin (Vitamin B-12) 1,000 mcg PO DAILY COUNT INCLUDES THE [facility] Folic Acid (Folvite) 1 mg PO DAILY COUNT INCLUDES THE [facility] Lisinopril (Zestril) 10 mg PO BID COUNT INCLUDES THE [facility] Last Admin: 05/04/20 10:00 Dose: 10 mg Magnesium Citrate (Citrate Of Magnesia 300 Ml Bot) 300 ml PO NOW COUNT INCLUDES THE [facility] Stop: 05/04/20 16:00 Last Admin: 05/04/20 12:57 Dose: 300 ml Metoprolol Succinate (Toprol Xl) 50 mg PO DAILY COUNT INCLUDES THE [facility] Last Admin: 05/04/20 09:59 Dose: 50 mg Multivitamins (Theragran) 1 tab PO DAILY COUNT INCLUDES THE [facility] Nitroglycerin (Nitrostat) 0.4 mg SL Q5MIN PRN PRN Reason: Chest Pain Ondansetron HCl (Zofran) 8 mg IVP BID COUNT INCLUDES THE [facility] Last Admin: 05/04/20 10:08 Dose: 8 mg Pantoprazole Sodium (Protonix) 40 mg PO BID COUNT INCLUDES THE [facility] Last Admin: 05/04/20 10:01 Dose: 40 mg Polyethylene Glycol (Miralax) 17 gm PO BID COUNT INCLUDES THE [facility] Last Admin: 05/04/20 10:03 Dose: 17 gm Vital Signs & Weight: Vital Signs Temp Pulse Resp BP BP Pulse Ox 05/04/20 11:58 97.5 F L 58 L 16 131/70 92 L 05/04/20 10:00 125/72 05/04/20 09:59 60 05/04/20 08:00 98.0 F 60 15 125/72 92 L 05/04/20 04:00 98.2 F 78 17 101/59 L 92 L Admit Weight 86 lb 6.4 oz Weight 91 lb 8 oz - Physical Exam General: alert & oriented x3 HEENT: mucus membranes moist Neck: supple neck Cardiac: regular rate and rhythm, S1/S2 Lungs: decreased breath sounds Neuro: cranial nerve 2-12 intact Extremities: no edema - Labs Result Diagrams: 05/04/20 04:27 05/04/20 04:27 Troponin/CKMB CK-MB (CK-2) 2.4 ng/mL (0-6.6) 05/01/20 23:15 Troponin I 6.841 ng/mL (< 0.028) H* 05/02/20 06:09 - Telemetry Sinus rhythms and dysrhythmias: sinus rhythm - Assessment/Plan Assessment/Plan: 1. NSTEMI with s/p LHC on 05/03/2020 with akinetic wall in distal, anterior, apex, and distal inferior wall, hypokinetic prox and mid inferior wall, 30% stenosis in prox LAD, 50% in mid Lx Cx and 100% stenosis in RCA which collateral from Lt system, and 100% stenosis in Rt ICA withc collateral from Lt Iliac artery; 40% stenosis in Lt Iliac; and appears to have a Takotsubo's cardiomyopathy, with severe depressed EF, 25%. Medical management was recommended. on Toprol, Lisinopril; 2. Takotsubo's cardiomyopathy with EF 25%; d/royer home with LifeVest 3. Severe PVD 4. Chronic nausea and vomitting - GI consult 5. HTN - stable 6. COPD - stable with RA 7. current smoker - smoking cessation education given to the pt 8. Ilicit drug abuse recommend to stop MAR reviewed
--- NOTE | 2020-05-04 17:12 | PRG ---
DATE OF SERVICE: 05/04/2020 REASON FOR CONSULTATION: Nausea, vomiting, and left lower quadrant abdominal pain. SUBJECTIVE: The patient underwent MiraLAX administration in addition to a mineral oil enema, and with these interventions, she states that her abdominal pain has significantly improved. Currently, her lower abdominal pain is a 3/10, when compared to 8/10 on admission. She also states that she has not had any further episodes of nausea or vomiting since admission. Currently, she denies any nausea, vomiting, fevers, chills, hematemesis, melena, hematochezia, odynophagia, or dysphagia. OBJECTIVE: VITAL SIGNS: Temperature 97.5, pulse 58, blood pressure 131/70, respiratory rate 16, saturating 92% on room air. GENERAL: The patient was lying in bed, in no acute distress. Alert and oriented x4. CARDIOVASCULAR: Regular rate and rhythm. RESPIRATORY: Clear to auscultation bilaterally. ABDOMEN: Normoactive bowel sounds. Soft, nontender, and nondistended. EXTREMITIES: No cyanosis, clubbing, or edema. LABORATORY DATA: CBC with a white blood cell count of 7.2, hemoglobin 14.6, hematocrit 46.3, platelets 119. Chemistry with a sodium of 141, potassium 3.2, chloride 106, CO2 of 28, BUN 4, creatinine 0.64, glucose 79. IMAGING STUDIES: No current GI imaging is available for review. ASSESSMENT AND PLAN: The patient is a 65-year-old female with past medical history of hypertension, hyperlipidemia, cerebrovascular accident, anxiety, chronic obstructive pulmonary disease, and tobacco abuse, now presenting with tie-VM-wahqyeqjk myocardial infarction, in addition to chronic nausea, vomiting, and left flank pain, most likely due to constipation. Nausea/vomiting/constipation. The patient initially presented with chronic nausea, vomiting, and left flank pain that had been present for the last year along with a history of having a bowel movement every 2 weeks. However, with administration of scheduled Zofran during this admission as well as the administration of MiraLAX and a mineral oil enema yesterday, she has had significant improvement in her abdominal pain and has had complete resolution of her nausea/vomiting. At this time, the above symptoms seemed to be most related to her constipation with no endoscopic evaluation indicated at this time. RECOMMENDATIONS: 1. Would advance the patient's diet to a full liquid diet today. 2. Continue MiraLAX 17 g twice daily. 3. Would add magnesium citrate bottle x1 today to facilitate having a bowel movement. 4. Continue pantoprazole 40 mg b.i.d. in light of possible acid reflux contributing to her nausea and vomiting. Given her significant improvement to current therapies, we will sign off at this time. Please call with any questions. Job ID: [id number]
--- NOTE | 2020-05-04 18:14 | PDOC.HOSPP ---
- Subjective Encounter Date: 05/04/20 Encounter Time: 09:00 Subjective: Patient seen and examined for elevated troponin with abdominal discomfort. Denies any chest pain. Some nausea reported. Low-grade left-sided abdominal pain reported. - Objective Vital Signs & Weight: Vital Signs (12 hours) Temp Pulse Resp BP BP Pulse Ox 05/04/20 17:08 96.9 F L 58 L 16 126/66 93 L 05/04/20 11:58 97.5 F L 58 L 16 131/70 92 L 05/04/20 10:00 125/72 05/04/20 09:59 60 05/04/20 08:00 98.0 F 60 15 125/72 92 L Weight Admit Weight 86 lb 6.4 oz Weight 91 lb 8 oz I&O: 05/03/20 05/04/20 05/05/20 06:59 06:59 06:59 Intake Total 1280 780 Output Total 500 650 Balance 780 130 Result Diagrams: 05/04/20 04:27 05/04/20 04:27 EKG Reviewed by me: Yes (Sinus rhythm on telemetry) Hospitalist ROS - Review of Systems Respiratory: denies: cough, dry, shortness of breath, hemoptysis, SOB with excertion, pleuritic pain, sputum, wheezing, other Cardiovascular: denies: chest pain, palpitations, orthopnea, paroxysmal noc. dyspnea, edema, light headedness, other - Medication Medications: Active Medications Generic Name Dose Route Start Last Admin Trade Name Freq PRN Reason Stop Dose Admin Acetaminophen/Codeine Phosphate 1 tab 05/02/20 12:10 05/03/20 12:42 Tylenol #3 PO 1 tab Q4H PRN Administration Mild Pain (1-3) Acetaminophen/Codeine Phosphate 2 tab 05/02/20 12:10 05/03/20 16:38 Tylenol #3 PO 2 tab Q4H PRN Administration Moderate Pain (4-6) Amlodipine Besylate 5 mg 05/03/20 09:00 05/04/20 09:59 Norvasc PO 5 mg DAILY ANAYELI Administration Aspirin 81 mg 05/03/20 09:00 05/04/20 10:01 Ecotrin PO 81 mg DAILY ANAYELI Administration Atorvastatin Calcium 40 mg 05/02/20 21:00 05/03/20 21:46 Lipitor PO 40 mg HS ANAYELI Administration Lisinopril 10 mg 05/02/20 21:00 05/04/20 10:00 Zestril PO 10 mg BID ANAYELI Administration Metoprolol Succinate 50 mg 05/02/20 09:00 05/04/20 09:59 Toprol Xl PO 50 mg DAILY ANAYELI Administration Ondansetron HCl 8 mg 05/03/20 21:00 05/04/20 10:08 Zofran IVP 8 mg BID ANAYELI Administration Pantoprazole Sodium 40 mg 05/03/20 21:00 05/04/20 10:01 Protonix PO 40 mg BID ANAYELI Administration Polyethylene Glycol 17 gm 05/04/20 09:00 05/04/20 10:03 Miralax PO 17 gm BID ANAYELI Administration - Exam General Appearance: NAD Neck: supple, no JVD Heart: no gallops Respiratory: no wheezes, no ronchi Gastrointestinal: soft, non-tender, normal bowel sounds Extremities: no cyanosis Musculoskeletal: generalized weakness Psychiatric: normal affect, A&O x 3 Hosp A/P - Plan DVT proph w/SCDs Chest pain with elevated troponin/non-ST elevation NH Hypertension with hypertensive urgency Chronic systolic heart failure ejection fraction 25% with Takotsubo cardiomyopathy Coronary artery disease Severe peripheral vascular disease Nausea vomiting with left-sided abdominal pain Hyperlipidemia Tobacco dependence GERD Anxiety COPD History of CVA Medication noncompliance Hypokalemia Hypomagnesemia Plan: 05/04 Continue aspirin with statins. Continue amlodipine, lisinopril with Toprol-XL. Left and modification emphasized. Continue PPIs. Continue MiraLAX. Patient received mag citrate. Recheck labs in a.m. Replace electrolytes. Full liquid diet. Continue Ensure. LifeVest at discharge
[2020-05-04] MEDS ORDERED: Electrolyte Replacement Protocol FS PRN (18:30)
[2020-05-04] MEDS ORDERED: Sodium Chloride 0.9% 10 ML ONE (20:38)
[2020-05-04] MEDS: Atorvastatin Calcium 40 MG TAB PO SCH (20:53)
[2020-05-05 04:52] LABS: #Basophils 0.1 thou/uL (0.0-0.2); #Eosinphils 0.2 thou/uL (0.0-0.7); #Lymphocytes 2.1 thou/uL (1.20-3.40); #Monocytes 0.8 thou/uL (0.11-0.59); #Neutrophils 5.6 thou/uL (1.40-6.50); %Basophils 0.7 % (0.0-1.0); %Lymphocytes 23.9 % (21.0-51.0); %Monocytes 8.7 % (0.0-10.0); %Neutrophils 64.8 % (42.0-75.0); Hemoglobin 15.4 g/dL (12.0-16.0); Mean Corpuscular HGB CONC 31.6 g/dL (32.0-36.0); Mean Platelet Volume 9.1 fL (7.4-10.4); Platelet Count 136 thou/uL (130-400); RBC Distribution Width 13.2 % (11.5-14.5); Red Blood Cell (RBC) Count 4.65 mill/uL (4.20-5.40); White Blood Cell (WBC) Count 8.7 thou/uL (4.8-10.8)
[2020-05-05 05:12] LABS: ALT (SGPT) 9 U/L (8-55); AST (SGOT) 13 U/L (5-34); Albumin 3.4 g/dL (3.4-4.8); Alkaline Phosphatase 88 U/L (40-110); Anion Gap 11 mmol/L (10-20); BUN (Urea Nitrogen) 5 mg/dL (9.8-20.1); Bilirubin, Total 0.7 mg/dL (0.2-1.2); Calc. Creatinine Clearance 56 mL/min (70-130); Calcium 9.8 mg/dL (7.8-10.44); Carbon Dioxide 24 mmol/L (23-31); Chloride 108 mmol/L (98-107); Estimated GFR-MDRD Greater than 90; Globulin 2.8 g/dL (2.4-3.5); Glucose 77 mg/dL (80-115); Potassium 4.1 mmol/L (3.5-5.1); Protein, Total 6.2 g/dL (6.0-8.3); Sodium 139 mmol/L (136-145)
[2020-05-05 05:16] LABS: Phosphorus 1.8 mg/dL (2.3-4.7)
[2020-05-05] MEDS ORDERED: Magnesium 2 GM/50 ML 2 GM in Premix Bag 1 BAG IVPB SCH (06:30)
[2020-05-05] MEDS: Ondansetron PF 4 MG/2 ML Vial IVP SCH (08:03)
[2020-05-05] MEDS: Polyethylene Glycol 3350 17 GM Packet PO SCH (08:03)
[2020-05-05] MEDS: Lisinopril 10 MG TAB PO SCH (08:04)
[2020-05-05] MEDS: Amlodipine 5 MG TAB PO SCH (08:04)
[2020-05-05] MEDS: Aspirin 81 mg Enteric Coated Tablet PO SCH (08:04)
[2020-05-05] MEDS: Pantoprazole 40 MG GRANULES PACKET PO SCH (08:05)
[2020-05-05] MEDS: PHOS-NAK 1 PKT PACK PO SCH ×2 (08:05→11:47)
[2020-05-05] MEDS ORDERED: Multivit, Therapeutic 1 TAB PO SCH (09:00)
[2020-05-05] MEDS ORDERED: Folic Acid 1 MG TAB PO SCH (09:00)
[2020-05-05] MEDS ORDERED: Cyanocobalamin (Vitamin B-12) 1,000 MCG TAB PO SCH (09:00)
--- NOTE | 2020-05-05 11:07 | DIS ---
DATE OF ADMISSION: 05/02/2020 DATE OF DISCHARGE: 05/05/2020 DISCHARGE DISPOSITION: Home. FOLLOWUP: 1. Follow up with primary care physician in 1 week. 2. Follow up with Gastroenterology Service in 2 weeks. 3. Follow up with Cardiology, Dr. Harrison, in 2 weeks. The patient was seen and examined on the day of discharge. Denies any new complaints. No chest pain, shortness of breath, palpitations reported. SIGNIFICANT LABORATORY DATA: 1. Potassium 3.2, replaced; phosphorus 1.8, replaced. 2. Maximum troponin of 6.8. 3. COVID-19 negative. 4. Urine drug screen negative. DISCHARGE MEDICATIONS: 1. Aspirin 81 mg daily. 2. Symbicort 160/4.5 b.i.d. as needed. 3. Protonix 40 mg b.i.d. 4. MiraLAX 17 g b.i.d. 5. Multivitamin 1 tablet daily. 6. Toprol-XL 50 mg daily. 7. Lisinopril 10 mg b.i.d. 8. Folic acid 1 mg daily. 9. Vitamin B12 1000 mcg daily. 10. Lipitor 40 mg at bedtime. 11. Amlodipine 5 mg daily. 12. Albuterol inhaler as needed. 13. Sublingual nitroglycerin as needed. INPATIENT PROCEDURES: The patient underwent cardiac catheterization on May 02, 2020, that showed ejection fraction of 25% with 30% proximal LAD lesion, 50% mid stenosis in circumflex, and 100% occlusion of the RCA which is chronic with collaterals from the left coronary. Left main was negative for any obstruction. Medical therapy was recommended. BRIEF HOSPITAL COURSE: The patient is a 65-year-old female with hypertension, hyperlipidemia, and tobacco dependence who presented to the emergency room with chest discomfort that felt like indigestion along with chest tightness. She has been doing K2 recently. She was found to have elevated troponins. Her EKG showed ST depression with nonspecific ST-T wave changes. She was also found to have elevated blood pressure with a maximum pressure of 211/98 in the emergency room. She received aspirin along with 1 mg/kg Lovenox, Zofran, and was started on a Cardene drip for hypertensive emergency. Later on, Cardene drip was discontinued. She was monitored in the telemetry unit. She was found to have elevated troponin. The patient was evaluated by Cardiology. Cardiac catheterization was performed as discussed above. The patient probably had non-ST elevation NC with Takotsubo cardiomyopathy. Her EF was 25%. Her medications have been optimized by Cardiology. LifeVest has been arranged. The patient has been extensively counseled on congestive heart failure including tobacco and drug cessation. The patient also had nausea and vomiting along with left-sided abdominal pain. The patient was evaluated by Gastroenterology Service. She was started on PPIs along with Zofran. MiraLAX and mag citrate were later added due to persistent left-sided abdominal pain. Her abdominal pain has resolved after having bowel movements. She probably has acid reflux for which Protonix 40 b.i.d. was recommended by GI. She appears stable for discharge. FINAL DIAGNOSES: 1. Chest discomfort consistent with non-ST elevation myocardial infarction. 2. Hypertensive emergency on admission requiring Cardene drip. 3. Chronic systolic heart failure with ejection fraction 25% with Takotsubo cardiomyopathy. 4. Coronary artery disease. 5. Severe peripheral vascular disease. 6. Nausea and vomiting with left-sided abdominal pain, probably due to gastroesophageal reflux disease with constipation, improved. 7. Hyperlipidemia. 8. Tobacco dependence. 9. K2 abuse. 10. Gastroesophageal reflux disease. 11. Anxiety. 12. Chronic obstructive pulmonary disease. 13. History of cerebrovascular accident. 14. Hypokalemia, replaced. 15. Hypomagnesemia, replaced. 16. Hypophosphatemia, replaced. 17. History of medication noncompliance. The patient will require basic metabolic profile after 1 week. Primary care physician advised to follow. She appears stable for discharge. Job ID: [id number]
[2020-05-05 11:53] VITALS: TEMP 97.7
[2020-05-05 13:25] VITALS: BP 119/71
--- NOTE | 2020-05-05 15:46 | PDOC.CPN ---
- Subjective Date: 05/05/20 Time: 15:50 Interval history: The pt seen and examined. No overnight events. No cardiac complaints. - Objective Allergies/Adverse Reactions: Allergies Allergy/AdvReac Type Severity Reaction Status Date / Time No Known Allergies Allergy Verified 05/02/20 06:29 Vital Signs & Weight: Vital Signs Temp Pulse Resp BP BP BP Pulse Ox 05/05/20 13:12 68 119/71 05/05/20 11:29 97.7 F 71 12 130/71 96 05/05/20 08:04 68 132/68 05/05/20 07:25 98.2 F 75 14 127/73 92 L Admit Weight 86 lb 6.4 oz Weight 85 lb 14.4 oz - Physical Exam General: alert & oriented x3 HEENT: mucus membranes moist Neck: supple neck Cardiac: regular rate and rhythm, S1/S2 Lungs: decreased breath sounds Neuro: cranial nerve 2-12 intact Extremities: no edema - Labs Result Diagrams: 05/05/20 04:24 05/05/20 04:24 Troponin/CKMB CK-MB (CK-2) 2.4 ng/mL (0-6.6) 05/01/20 23:15 Troponin I 6.841 ng/mL (< 0.028) H* 05/02/20 06:09 - Telemetry Sinus rhythms and dysrhythmias: sinus rhythm - Assessment/Plan Assessment/Plan: 1. NSTEMI with s/p LHC on 05/03/2020 with akinetic wall in distal, anterior, apex, and distal inferior wall, hypokinetic prox and mid inferior wall, 30% stenosis in prox LAD, 50% in mid Lx Cx and 100% stenosis in RCA which collateral from Lt system, and 100% stenosis in Rt ICA withc collateral from Lt Iliac artery; 40% stenosis in Lt Iliac; and appears to have a Takotsubo's cardiomyopathy, with severe depressed EF 25%. Medical management was recommended. on Toprol, Lisinopril; will d/c home with LifeVest 2. Takotsubo's cardiomyopathy with EF 25%; d/royer home with LifeVest 3. Severe PVD - strongly recommend walking regmen and smoking cessation; on ASA 4. Chronic nausea and vomitting - improved with Miralax BID, Protonix BID 5. HTN - stable 6. COPD - stable with RA 7. current smoker - smoking cessation education given to the pt 8. Ilicit drug abuse recommend to stop MAR reviewed * The pt will be d/royer with Life[facility]fan[facility] today; the pt will f/u with Dr Harrison's office in 2 wks.
--- NOTE | 2020-05-07 22:24 | PQF ---
Dear : Neftali Somers Date 05/05/20 Please exercise your independent, professional judgment in responding to the clarification form. Clinical indicators are provided on the bottom of this form for your review Can you please further clarify the nutritional status of the patient? Please check appropriate box(es): [ ] Protein Calorie Malnutrition: [ ] Mild [ x ] Moderate [ ] Severe [ ] Other Malnutrition (please specify) __ [ ] Underweight without malnutrition [ ] Cachexia [ ] Other diagnosis [ ] Unable to determine Physician Signature: Date/Time: For continuity of documentation, please document condition throughout progress notes and discharge summary. Thank You. To be completed by CDI/Coding staff for physician review: Present Clinical Indicators - Signs / Symptoms / Labs Results and Location in Medical Record [ x ] BMI 13.9 Food and nutrition services assessment [ x ] Thin appearance with mild muscle wasting to trapezius Food and nutrition services assessment [ x ] Previous weight loss Food and nutrition services assessment [ x ] Poor appetite Food and nutrition services assessment [ x ] Severe weight loss Consult pg.2 [ x ] Albumin: 05/01=4.6 05/05=3.4 Labs 05/01 [ x ] Total Protein: 05/01=7.8 05/05=6.2 Labs 05/01 Present Risk Factors Results and Location in Medical Record [ x ] 65 years old H and P pg.2 [ x ] HTN H and P pg.2 [ x ] HLD H and P pg.2 [ x ] Hx of CVA H and P pg.2 [ x ] COPD H and P pg.2 [ x ] smoker H and P pg.2 [ x ] K2 abuse H and P pg.2 [ x ] NSTEMI H and P pg.2 [ x ] noncompliance H and P pg.2 [ x ] Hypercalcemia Consult pg.3 [ x ] GERD Consult 05/03 Present Treatments Results and Location in Medical Record [ x ] Dietary consult Food and nutrition services assessment [ x ] IV Fluids MAR [ x ] Cyanocobalamin 1000 1mg PO MAR [ x ] Magnesium 2gm IV MAR [ x ] Multi vit 1 tab PO daily MAR [ x ] Continue to ADAT to a Heart Healthy diet Dietitian Assessment 05/03 [ x ] Ensure Enlive BID Dietitian Assessment 05/03 [ x ] Monitor total protein intake Dietitian Assessment 05/03 [ x ] Monitor weight change Dietitian Assessment 05/03 CDS/Md Senior Research Scientist Signature: Neil Dang Phone #: ext [phone] Date 05/07/2020 Moderate Malnutrition (in acute illness) ? Energy Intake: <75% of estimated energy requirement for > 7 days ? Weight Loss: 1-2%/1 week; 5%/ 1 month; 7.5%/3 months ? Other: mild body fat loss; mild muscle mass loss; mild fluid accumulation; Severe Malnutrition (in acute illness) ? Energy Intake: ? 50% of estimated energy requirement for ? 5 days ? Weight Loss: >2%/1 week; >5%/1 month; >7.5%/3 months ? 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 Energy Intake: <75% of estimated energy requirement for ?1 month ? Weight Loss: 5%/1 month; 7.5%/3 months; 10%/6 months; 20%/1 year ? Other: mild body fat loss; mild muscle mass loss; mild fluid accumulation Severe Malnutrition (in chronic illness) ? Energy Intake: ?75% of estimated energy requirement for ?1 month ? Weight Loss: >5%/1 month; >7.5%/3 months; >10%/6 months; >20%/1 year ? Other: severe body fat loss; severe muscle mass loss; severe fluid accumulation; measurably reduced seismic prospecting supervisor strength This is a permanent part of the Medical Record MTDD
== END 2020-05-05 13:51 | disposition home or self-care (01) | DRG 281 ==
LOC: ERS 22:44 → ERHOLD 05-02 00:44 → 2NO 05-02 05:19
PROVIDERS: ADMIT Internal Medicine; ATTEND Internal Medicine
PROC: 4A023N7 Measurement of Cardiac Sampling and Pressure, Left Heart, Percutaneous Approach (ICD-10-PCS; principal; 2020-05-02)
PROC: B2151ZZ Fluoroscopy of Left Heart using Low Osmolar Contrast (ICD-10-PCS; 2020-05-02)
PROC: B2131ZZ Fluoroscopy of Multiple Coronary Artery Bypass Grafts using Low Osmolar Contrast (ICD-10-PCS; 2020-05-02)
DX: I21.4 Non-ST elevation (NSTEMI) myocardial infarction (principal); I51.81 Takotsubo syndrome; I16.1 Hypertensive emergency; I50.22 Chronic systolic (congestive) heart failure; Z68.1 Body mass index [BMI] 19.9 or less, adult; E44.0 Moderate protein-calorie malnutrition; Z20.828 Contact with and (suspected) exposure to other viral communicable diseases; E78.5 Hyperlipidemia, unspecified; F17.210 Nicotine dependence, cigarettes, uncomplicated; I25.10 Atherosclerotic heart disease of native coronary artery without angina pectoris; I73.9 Peripheral vascular disease, unspecified; K21.9 Gastro-esophageal reflux disease without esophagitis; K59.00 Constipation, unspecified; F12.10 Cannabis abuse, uncomplicated; F41.9 Anxiety disorder, unspecified; E87.6 Hypokalemia; E83.42 Hypomagnesemia; E83.39 Other disorders of phosphorus metabolism; E83.52 Hypercalcemia; Z91.14 Patient's other noncompliance with medication regimen; Z79.899 Other long term (current) drug therapy
CPT/HCPCS: 36415; 36600; 71045; 75625; 80048; 80053; 80061; 80306; 82553; 83735; 83880; 84100; 84443; 84484; 85014; 85018; 85025; 85049; 85730; 87635; 93005; 93306; 93455; 93567; 93798; 94760; 96365; 96366; 96372; 96374; 97139; 99152; 99153; J1644; J1650; J2250; J2405; J3010; J3475; Q9967; S0028; U0003

== ENCOUNTER 2020-09-05 11:49 | Inpatient (IN) | payer MEDICARE ==
[2020-09-05] MEDS ORDERED: methylPREDNISolone Sod Succ/PF 125 MG/2 ML VIAL ONE (12:10)
[2020-09-05] MEDS ORDERED: Albuterol Sulfate 2.5 mg/3 ml Neb ONE ×2 (12:19→15:18)
[2020-09-05] MEDS ORDERED: EPINEPHrine 1 MG/10 ML Abboject SYRINGE ONE (12:35)
[2020-09-05] MEDS ORDERED: Aspirin Chewable 81 MG TAB ONE (12:38)
[2020-09-05] MEDS ORDERED: Magnesium 2 GM/50 ML BAG (IN WATER) ONE (12:38)
[2020-09-05] MEDS ORDERED: Nitroglycerin 2% Ointment 1 INCH/1 GM Packet ONE (12:38)
[2020-09-05 13:06] LABS: Actual Bicarbonate (HCO3a) 20.7 mEq/L (22-28); Analyzer IN Cardio ER; Base Excess (BEa) -3.8 mEq/L (-2.0 to +3.0); CO2 Tension 36.1 mmHg (35.0-45.0); Calcium, Ionized (arterial) 1.26 mmol/L (1.12-1.30); Carboxyhemoglobin (COHb) 8.6 gm% (0.0-3.0); Hemoglobin (Hb) 15.8 g/dL (12.0-16.0); O2 Tension (PaO2), arterial 97.6 mmHg (> 80.0); Potassium - ABG Lab 3.68 mmol/L (3.70-5.30); pH, Arterial 7.38 (7.35-7.45)
[2020-09-05 13:08] LABS: ALV-art Gradient 142.475 mmHg (0-20); Puncture Site RRA
[2020-09-05 13:09] LABS: #Basophils 0.1 thou/uL (0.0-0.2); #Lymphocytes 1.7 thou/uL (1.20-3.40); #Monocytes 0.8 thou/uL (0.11-0.59); #Neutrophils 10.6 thou/uL (1.40-6.50); %Basophils 0.7 % (0.0-1.0); %Eosinophils 0.1 % (0.0-10.0); %Lymphocytes 12.8 % (21.0-51.0); %Monocytes 5.7 % (0.0-10.0); %Neutrophils 80.6 % (42.0-75.0); Hemoglobin 15.1 g/dL (12.0-16.0); Mean Corpuscular HGB CONC 31.9 g/dL (32.0-36.0); Mean Corpuscular Hemoglobin 33.9 pg (27.0-31.0); Platelet Count 127 thou/uL (130-400); RBC Distribution Width 13.8 % (11.5-14.5); Red Blood Cell (RBC) Count 4.45 mill/uL (4.20-5.40); White Blood Cell (WBC) Count 13.1 thou/uL (4.8-10.8)
[2020-09-05 13:28] LABS: MDiff Complete? YES; Macrocytosis SLIGHT = 6-15 cells (100X) (0-5/hpf); Platelet Morphology Comment Appears Decreased; Polychromasia SLIGHT = 2-3 cells (100X) (0-2/hpf)
[2020-09-05 13:32] LABS: ALT (SGPT) 90 U/L (8-55); AST (SGOT) 305 U/L (5-34); Albumin 4.1 g/dL (3.4-4.8); Alkaline Phosphatase 125 U/L (40-110); Anion Gap 20 mmol/L (10-20); BUN (Urea Nitrogen) 14 mg/dL (9.8-20.1); Bilirubin, Total 0.7 mg/dL (0.2-1.2); Calc. Creatinine Clearance 0 mL/min (70-130); Carbon Dioxide 24 mmol/L (23-31); Chloride 106 mmol/L (98-107); Globulin 3.1 g/dL (2.4-3.5); Glucose 132 mg/dL (80-115); Potassium 3.8 mmol/L (3.5-5.1); Protein, Total 7.2 g/dL (6.0-8.3); Sodium 146 mmol/L (136-145)
--- NOTE | 2020-09-05 13:36 | RAD ---
RADIOGRAPH CHEST 1 VIEW: DATE: 09/05/2020 HISTORY: 65-year-old female with dyspnea Comparison: 05/01/2020 FINDINGS: There is hyperinflation of the lungs, consistent with COPD. There is a new finding of reticulonodular interstitial infiltrates throughout the right lower and mid lung zones, with involvement of right upper lung zone, but relative sparing of the apex. There is no evidence of consolidation or pneumotho rax. IMPRESSION: 1) interstitial infiltrates involving most of right lung. 2) emphysema.
[2020-09-05] MEDS ORDERED: Iopamidol-370 76% 500 ML 1 ML ONE (13:53)
[2020-09-05] MEDS ORDERED: Furosemide 20 MG/2 ML VIAL ONE (14:06)
[2020-09-05] MEDS ORDERED: Azithromycin 500 MG VIAL ONE (14:06)
[2020-09-05] MEDS ORDERED: cefTRIAXone\\ROCEPHIN 1 GM VIAL ONE (14:06)
[2020-09-05 14:16] LABS: SARS-CoV-2 NAA Rapid Test Not Detected (NotDetected)
--- NOTE | 2020-09-05 14:26 | PDOC.FPRHP ---
- History of Present Illness Chief Complaint: Shortness of Breath History of Present Illness: Patient is a 65 yo AAF with a pmhx significant for COPD, CHF, CAD, HTN who presents to the ED 2/2 shortness of breath. Hx limited by patient on BiPAP and difficulty completing sentences. Patient reports CP/SOB for the past 4 days that is substernal in nature and nonradiating. Pain is accompanied by N/V and episodes of diaphoresis. Patient also reports increased cough over this time. Denies Fevers/chills. ED Course: Patient received lovenox 1mg/kg, 1L LR infusion, 20 mg Lasix, 500 mg Azithromycin, 1 g Rocephin, 2 g Mg sulfate, 125 mg Solumedrol, 1 in Nitro paste, 324 mg ASA and was placed on BiPap 2/2 respiratory distress. - Allergies/Adverse Reactions Allergies Allergy/AdvReac Type Severity Reaction Status Date / Time No Known Allergies Allergy Verified 05/02/20 06:29 - Home Medications Medication Instructions Recorded Confirmed Type Folic Acid [Folvite] 1 mg PO DAILY #30 tab 05/31/17 09/06/20 Rx Ventolin HFA Inhaler 2 puff INH Q6HR PRN #1 inhaler 05/31/17 09/06/20 Rx Aspirin [Ecotrin Low Strength] 1 tab PO DAILY 05/02/20 09/06/20 History Budesonide-Formoterol [Symbicort 1 puff INH BID PRN 05/04/20 09/06/20 History 160-4.5] Sertraline HCl 100 mg PO DAILY 05/04/20 09/06/20 History Amlodipine Besylate [amLODIPine 5 mg PO DAILY #30 tablet 05/05/20 09/06/20 Rx Besylate] Atorvastatin Calcium [Lipitor] 40 mg PO HS #30 tab 05/05/20 09/06/20 Rx Cyanocobalamin (Vitamin B-12) 1,000 mcg PO DAILY #30 tab 05/05/20 09/06/20 Rx [Vitamin B-12] Metoprolol Succinate [Toprol XL] 50 mg PO DAILY #30 tab 05/05/20 09/06/20 Rx Multivit, Therapeutic [Theragran] 1 tab PO DAILY tab 05/05/20 09/06/20 Rx Nitroglycerin [Nitrostat] 0.4 mg SL Q5MIN PRN #25 tab 05/05/20 09/06/20 Rx Pantoprazole [Protonix] 40 mg PO BID #60 tab 05/05/20 09/06/20 Rx Polyethylene Glycol 3350 [Miralax] 17 gm PO BID pk 05/05/20 09/06/20 Rx Clopidogrel Bisulfate [Clopidogrel] 75 mg PO DAILY 09/06/20 09/06/20 History Lisinopril [Zestril] 20 mg PO BID 09/06/20 09/06/20 History Varenicline Tartrate [Chantix] 0.5 - 1 mg PO ASDIR 09/06/20 09/06/20 History - History PMHx: Polycythemia, HLD, tobacco abuse, MDD, PTSD, HTN, CVA with residual slurred speech, CAD s/p Cath 04/2020, HFrEF (EF 25% on Cath, 40-45% on ECHO with hypokinesis of apex), COPD PSHx: Colonoscopy 2018 FHx: Cancer in sisters Social: Current smoker, 1PPD (previously 2PPD). Denies recent drug use. Has hx synthetic marijuana use. Denies alcohol use. - Review of Systems General: reports: fever/chills, weight/appetite/sleep changes Eyes: denies: vision changes ENT: denies: nasal congestion, rhinorrhea Respiratory: reports: cough, shortness of breath Cardiovascular: reports: chest pain Gastrointestinal: reports: nausea, vomiting, constipation Genitourinary: denies: incontinence, dysuria Skin: denies: rashes, lesions Musculoskeletal: denies: pain, tenderness Neurological: denies: syncope, weakness - Vital signs BP: 181/125, Pulse: 136, Resp: 42, Temp: 97.8 (Oral), Pain: 0, Time: 09/05/2020 11:55. O2 sat: 82 on (Face mask), Time: 09/05/2020 12:21. BP: 154/110, MAP: 124, Pulse: 123, Resp: 32, Pain: 0, O2 sat: 97 on (Bipap), Time: 09/05/2020 12:50. Weight 44.2 kg - Physical Exam Constitutional: other (thin, on bipap, appears uncomfortable) HEENT: normocephalic and atraumatic, grossly normal vision, grossly normal hearing Neck: trachea midline Heart: RRR, normal S1/S2, no murmurs/rubs/gallops -Lungs: Patient with diffuse expiratory rales Abdomen: soft, non-tender, bowel sounds present Musculoskeletal: normal structure, normal tone Neurological: no focal deficit Skin: good turgor Heme/Lymphatic: no unusual bruising or bleeding, no purpura FMR H&P: Results - Labs Result Diagrams: 09/06/20 04:11 09/06/20 04:11 Lab results: WBC 13.1 thou/uL (4.8-10.8) H 09/05/20 12:48 Hgb 15.1 g/dL (12.0-16.0) 09/05/20 12:48 Hct 47.3 % (36.0-47.0) H 09/05/20 12:48 MCV 106.0 fL (78.0-98.0) H 09/05/20 12:48 Plt Count 127 thou/uL (130-400) L 09/05/20 12:48 Neutrophils % 80.6 % (42.0-75.0) H 09/05/20 12:48 ABG pH 7.38 (7.35-7.45) 09/05/20 13:02 ABG pCO2 36.1 mmHg (35.0-45.0) 09/05/20 13:02 ABG pO2 97.6 mmHg (> 80.0) H 09/05/20 13:02 Sodium 146 mmol/L (136-145) H 09/05/20 12:48 Potassium 3.8 mmol/L (3.5-5.1) 09/05/20 12:48 Chloride 106 mmol/L (98-107) 09/05/20 12:48 Carbon Dioxide 24 mmol/L (23-31) 09/05/20 12:48 BUN 14 mg/dL (9.8-20.1) 09/05/20 12:48 Creatinine 0.85 mg/dL (0.6-1.1) 09/05/20 12:48 Glucose 132 mg/dL (80-115) H 09/05/20 12:48 Lactic Acid 4.0 mmol/L (0.5-2.2) H 09/05/20 12:48 Calcium 10.0 mg/dL (7.8-10.44) 09/05/20 12:48 Total Bilirubin 0.7 mg/dL (0.2-1.2) 09/05/20 12:48 AST 305 U/L (5-34) H 09/05/20 12:48 ALT 90 U/L (8-55) H 09/05/20 12:48 Alkaline Phosphatase 125 U/L (40-110) H 09/05/20 12:48 B-Natriuretic Peptide 899.4 pg/mL (0-100) H 09/05/20 12:48 Serum Total Protein 7.2 g/dL (6.0-8.3) 09/05/20 12:48 Albumin 4.1 g/dL (3.4-4.8) 09/05/20 12:48 - EKG Interpretation EKG: Tachycardia, no evidence of ST elevation - Radiology Interpretation Chest x-ray Status: image reviewed by me, report reviewed by me Additional comment: Interstitial infiltrates on R, Emphysema FMR H&P: A/P - Plan Acute Hypoxic Respiratory Failure 2/2 pulmonary edema secondary to acute NSTEMI - Troponin 95, infiltrates on CXR on admission - Received thx lovenox in ED - Cardiology, Dr. Roque, consulted-plans for stat ECHO and cath in AM - On BiPAP, monitor Respiratory status HFrEF - EF 20-25% on cath 04/2020, 40-45% on ECHO with hypokinesis - BNP >900 on admission - Diuresis with IV lasix COPD - Duonebs ANAYELI Q6H, PRN Q4H - Will hold off on steroid and abx at this time Polycythemia - Continue to monitor HTN -Hold home medications at this time DVT ppx: Lovenox 30 GI ppx: none Code: full PCP: Monse SHEPARD Dispo: Admit to inpatient IMCU, expected LOS > 48 hrs Before completion of note, patient was intubated 2/2 worsening respiratory distr ess and central line was placed. Stat ECHO showed EF of 30-35%Cardiology, Dr. Roque, plans on cath tonight. Pulmonology, Dr. Gibbs was consulted. Patient will be admitted to CCU FMR H&P: Upper Level - Plan Date/Time: 09/05/20 1423 Ann-Marie Dorsey, have evaluated this patient and agree with findings/plan as outlined by sport internship resident. Pertinent changes/additions are listed here. 65 yo F with PMH CAD, smoker, PVD, Takatsubo cardiomyopathy presents with a 4 day chest pain and increasing shortness of breath. She was started on the bipap in the ED and history is difficult to obtain due to this. She is tachypneic and appears uncomfortable. PE: Gen: on bipap, thin Heart: tachycardic, exam limited Lungs: increased work of breathing, diffuse course breath sounds Abd: soft, nontender Ext: no cyanosis or edema Skin: no rashes BP: 125/105, Pulse: 115, Resp: 31, Pain: 0, O2 sat: 96 on (Bipap), Acute hypoxic respiratory failure likely 2/2 NSTEMI with pulmonary edema - patient transitioned to bipap in ED - s/p lasix 40 in ED, will continue diuresis, monitor strict I/Os. Concern for current cardiac function. - Less likely COPD exacerbation in nature - Covid and flu negative, afebrile NSTEMI - Cardiology consulted from the ED, started on therapeutic lovenox - Initial trop 95 - Cardiology consulted from ED, Dr. Roque, stat echo ordered with plan for possible cath in the morning HFrEF/Takotsubo's cardiomyopathy/CAD - Echo 05/08/2020: EF 40-45% - Cath 05/03/2020 with akinetic wall and hypokinetic hernandez, 30% stenosis prox LAD, 50% mid Lx Cx, 100% RCA with collateral flow, no stents placed. Was discharge home with lifevest COPD - No home O2 requirement, unknown if this is an official diagnosis vs just correction tobacco use with emphasematous changes on CXR Hx includes: CAD, Takatsubo cardiomyopathy, drug use, tobacco use DVT ppx: on therapeutic lovenox PCP: Ene Code: FULL Attending: Thierno Dispo: admit to CU, on bipap Addendum - Attending - Attending Attestation Date/Time: 09/05/201921 I personally evaluated the patient and discussed the management with Dr. Canseco and Lucina I agree with the History, Examination, Assessment and Plan documented above with any addition or exceptions noted below. Hx of severe CAD now with OR/NSTEMI with severe pulmonary edema causing acute respiratory failure. Initially placed on BiPAP but continue to progress now intubated. Pulm and Cards present at bedside. Will perform LHC tonight. State ECHO pending. Admit to CCU. Follow along closely. Prognosis poor. Thien
[2020-09-05] MEDS ORDERED: Enoxaparin Sodium 40 MG/0.4 ML SYRINGE ONE (14:32)
[2020-09-05 14:47] LABS: CKMB 597.4 ng/mL (0-6.6)
[2020-09-05] MEDS ORDERED: Ondansetron ODT 4 MG TAB PO PRN (15:13)
[2020-09-05] MEDS ORDERED: Acetaminophen 650 MG Suppository PR PRN (15:13)
[2020-09-05] MEDS ORDERED: Ondansetron PF 4 MG/2 ML Vial IVP PRN (15:13)
[2020-09-05] MEDS ORDERED: Calcium Carbonate 500 MG ChewTAB PO PRN (15:13)
[2020-09-05 15:21] LABS: Amphetamine Not Detected (NotDetected); Barbiturates Screen Not Detected (NotDetected); Benzodiazepine Screen Not Detected (NotDetected); Cocaine Metabolite Screen Not Detected (NotDetected); Medtox Control Line Valid? VALID (VALID); Medtox Reader # READER 4; Methadone Not Detected (NotDetected); Methamphetamine Not Detected (NotDetected); Opiate Screen Not Detected (NotDetected); Oxycodone Screen Not Detected (NotDetected); Phencyclidine (PCP) Not Detected (NotDetected); THC/Cannabinoid Screen Not Detected (NotDetected); Tricyclic Screen Not Detected (NotDetected)
[2020-09-05] MEDS ORDERED: Lorazepam 2 MG/ML VIAL ONE (15:22)
[2020-09-05] MEDS ORDERED: Rocuronium Bromide 10 MG/ML (10ML VIAL) ONE (15:45)
[2020-09-05] MEDS ORDERED: Nicotine 14 MG PATCH TD SCH (16:00)
--- NOTE | 2020-09-05 16:05 | CON ---
DATE OF CONSULTATION: 09/05/2020 PRIMARY NETWORK TECHNOLOGY INSTRUCTOR: Shanda Harrison MD REASON FOR CONSULTATION: Non STEMI, heart failure. HISTORY OF PRESENT ILLNESS: Ms. Castro is a pleasant 65-year-old female, who comes to the hospital for shortness of breath and chest pain. She came in secondary to this. She was in respiratory distress on arrival in the ER. She was given IV Lasix and placed on a BiPAP. On my evaluation, she has a hard time talking given any history, however, she does have a history of coronary artery disease with peripheral vascular disease as well as what appears to be Takotsubo cardiomyopathy. She was admitted back in April with a similar presentation. Her troponins were elevated up to about 4. She underwent heart catheterization that showed an EF of about 25% and an occluded RCA that fills from LAD collaterals. Her LAD had about 30% lesion and the left circumflex had 50% lesion. These were treated medically. She was sent home on a LifeVest. She is coming back today with these symptoms and her troponin on arrival was 90, so Cardiology has been consulted for this. PAST MEDICAL HISTORY: 1. Coronary artery disease as above. 2. Takotsubo cardiomyopathy. 3. EF at about 25% on left heart catheterization: 40% to 45% on echo. 4. Peripheral vascular disease. 5. Chronic nausea and vomiting. 6. Hypertension. 7. COPD. 8. Every day smoker. 9. Illicit drug use. She has done marijuana and some synthetic marijuana in the past. 10. 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 ALLERGIES: NO KNOWN DRUG ALLERGIES. SOCIAL HISTORY: Continues to smoke two packs of cigarettes a day. Has done synthetic marijuana in the past. OUTPATIENT MEDICATIONS: Unobtainable at this time. She does not know the name of all her medications and she cannot voice them because of respiratory distress. REVIEW OF SYSTEMS: A 12-point review of systems was done and was found to be negative other than stated in the history of present illness, however, difficult to obtain given her respiratory situation. PHYSICAL EXAMINATION: VITAL SIGNS: Temperature 98.2, pulse 110, respiratory rate 28, saturating 99% on BiPAP, blood pressure 138/62. GENERAL: Awake, alert, oriented to person, place, and time in moderate respiratory distress. HEENT: Normocephalic, atraumatic. NECK: Supple. JVD up to about 16 cm of water. LUNGS: Reduced breath sounds bilaterally. CARDIOVASCULAR: Distant heart sounds but S1, S2. EXTREMITIES: Trace edema. SKIN: Warm and dry. LABORATORY DATA: Laboratory work was reviewed. Her white count of 13, hemoglobin of 15, hematocrit of 47, platelet count of 127. D-dimer was 7, very high. ABG was reviewed. Chemistry was reviewed. Her initial troponin was 95 with a CK-MB of 597 and a BNP of 899. COVID PCR was not detected. Influenza A and B were both negative. Chest x-ray done at noon showed interstitial infiltrates on the right lung and emphysema. Most recent echocardiogram was done in April of last year, which is about 4 months ago and had an EF of 40% to 45% with hypokinesis of the inferior wall and mild apical hypokinesis. ASSESSMENT/PLAN: 1. Acute on chronic systolic heart failure. 2. Wqm-GR-aoeruzwoy myocardial infarction. 3. History of coronary artery disease. 4. Chronic obstructive pulmonary disease with possible exacerbation and possible pneumonia. 5. Substance abuse. UDS pending. PLAN: 1. Agree with supportive care at this time. If her troponin is 90 and this is likely related to a cardiac event, however, most likely her event happened over 24 hours ago and she is currently in florid heart failure and unable to lie flat and it would be high risk for intubation. She is a small frail woman and she would be high risk for any procedure that is done to her. At this time, she has been in a better situation before heart catheterization is performed. 2. We would agree with full dose Lovenox for now. Continue weaning the BiPAP as tolerated. Continue IV Lasix for diuresis. 3. We will plan on heart catheterization tomorrow if more stable or in the next few days depending on her clinical evolution. 4. Stat echocardiogram has been ordered. Thank you for letting us to participate in the care of your patient. We will follow. 50 minutes of critical care time. Job ID: [id number]
[2020-09-05] MEDS ORDERED: Furosemide 40 MG/4 ML VIAL ONE (16:10)
[2020-09-05] MEDS ORDERED: fentaNYL Citrate/PF 2,000 MCG in Sodium Chloride 0.9% 60 ML IV SCH ×2 (16:30→17:45)
[2020-09-05] MEDS ORDERED: Electrolyte Replacement Protocol FS SCH (17:27)
[2020-09-05] MEDS ORDERED: Ventilator Sedation Protocol 1 EACH FS SCH (17:30)
[2020-09-05] MEDS ORDERED: Propofol BOLUS 1,000 MG/100 ML VIAL IV PRN (17:45)
[2020-09-05] MEDS ORDERED: DISCONTINUE PREVIOUS NARCOTIC PAIN MEDICATIONS AND BENZODIAZEPINES FS SCH (17:45)
[2020-09-05] MEDS ORDERED: Morphine 2 MG/ML VIAL SLOW IVP PRN (17:45)
[2020-09-05] MEDS ORDERED: Propofol 1,000 MG/100 ML VIAL IV PRN (17:45)
[2020-09-05] MEDS ORDERED: Fentanyl BOLUS 250 ML IVPB PRN (17:45)
[2020-09-05] MEDS ORDERED: Lorazepam 2 MG/ML VIAL SLOW IVP PRN (17:45)
--- NOTE | 2020-09-05 17:51 | CON ---
DATE OF CONSULTATION: 09/05/2020 CONSULTING PHYSICIAN: [facility]. REASON FOR CONSULTATION: Respiratory failure, requiring mechanical ventilation. HISTORY OF PRESENT ILLNESS: This patient is a 65-year-old female, who presented to the hospital with increasing shortness of breath. I believe, she was also having some chest pain. At the time I saw her, she had failed BiPAP and had been intubated by the emergency room staff. Dr. Roque tells me that the patient has an EF of about 25% and known coronary artery disease in the past. She presented with a troponin of 90, so it was felt she has had an event in the last several days. I believe, I have seen her in the office in the past regarding COPD, but I do not think she is a regular patient. PAST MEDICAL HISTORY: 1. Coronary artery disease. 2. Takotsubo cardiomyopathy. 3. Chronic systolic heart failure. 4. Chronic nausea and vomiting. 5. Hypertension. 6. Chronic obstructive pulmonary disease. 7. History of illicit drug use. 8. Stroke. ALLERGIES: NONE. SOCIAL HISTORY: She is a 5-wyqm-pdn-day smoker. She has known to smoke synthetic marijuana in the past. OUTPATIENT MEDICATIONS: Currently, not known. REVIEW OF SYSTEMS: Cannot be obtained as the patient is currently on mechanical ventilation. ALLERGIES: NONE. PHYSICAL EXAMINATION: VITAL SIGNS: Temperature 98.2, pulse is running 110 to 130, respiratory rate 20, O2 saturation 99%, blood pressure 138/62. GENERAL: This is a thin female, who is currently intubated, sedated, and paralyzed. HEENT: Unremarkable. NECK: No adenopathy, but she does have 6-cm JVD. LUNGS: With crackles at the bases bilaterally. CARDIOVASCULAR: S1 and S2 regular with a 3/6 holosystolic murmur at the apex of the heart. ABDOMEN: Soft and nontender to palpation. EXTREMITIES: No clubbing, cyanosis, or edema. IMAGING STUDIES: A chest x-ray demonstrates hyperinflation, chronic interstitial lung changes, clear diaphragms, and no evidence of infiltrate. LABORATORY DATA: White blood cell count 13, hematocrit 47.3, and platelet count 127. PH of 7.3, pCO2 of 36, pO2 of 97 on BiPAP before intubation. Sodium 146, potassium 3.8, chloride 106, CO2 of 24, BUN 14, creatinine 0.8, glucose 132. BNP is 899. Troponin 95.4. Lactate 4.0. Tox screen was negative. Serology negative for flu and COVID. ASSESSMENT: 1. Myocardial infarction. 2. Acute on chronic systolic heart failure with some component of cardiogenic shock. 3. Underlying chronic obstructive pulmonary disease without exacerbation. RECOMMENDATIONS: 1. I would withhold nicotine patch at this time because of potential coronary vasospasm. 2. Judicious use of nebulization medication. 3. Sedation protocol. 4. Cardiac catheterization. 5. Current ventilator settings are appropriate. Thank you for the referral. Job ID: [id number]
--- NOTE | 2020-09-05 17:56 | CT ---
Exam: CT angiogram of the chest HISTORY: Difficulty breathing. Dyspnea. COMPARISON: 05/27/2017 TECHNIQUE: CT angiogram of the chest is performed in the axial plane. Three-dimensional reformatted i mages are submitted for interpretation FINDINGS: Mediastinum: Enlarged precarinal lymph node measures 2.1 x 1.7 cm. There is evidence of fluid in the mediastinum. No hematoma. HEART: Normal size. No significant pericardial fluid. Aorta: Atherosclerosis of the abdominal aorta. No periaortic fat stranding. Upper solid abdominal viscera: There is linear hypoattenuation involving the peripheral aspect of the left hepatic lobe. Portal venous gas is suspected. Evaluation is incomplete. Trachea and central bronchi: Patent Pleural spaces: Small right effusion Lung parenchyma: Extensive emphysematous changes and septal thickening throughout the lung parenchyma , right greater than left. Nonspecific opacification the posterior right upper lobe, dependent portion of the right lower lobe is presumed to represent atelectasis. Positive aspiration or pneumoni a in the right lower lobe cannot be entirely excluded. Nonspecific pleural-based opacity in the left lower lobe may represent scarring. Pneumothorax: None Osseous structures: No lytic or blastic lesions Lines and tubes: Nasogastric tube terminates in the stomach. Endotracheal tube terminates at the leve l of clavicles. Pulmonary arteries: Adequate contrast opacification pulmonary arterial system to the level of segment al arteries. No filling defect to suggest pulmonary embolism IMPRESSION: 1. No evidence of pulmonary artery embolism to the level of the segmental arteries 2. Chronic changes along parenchyma with patchy opacities as described above. Areas of scarring and a telectasis are favored. However, the possibility of a right lower lobe infiltrate cannot be excluded. 3. Possible portal venous gas noted in the left hepatic lobe. Evaluation is incomplete. Abdomen and p elvic CT is recommended. Results of study discussed with Missy Domínguez 09/05/2020 at 5:51 PM Code CR
[2020-09-05] MEDS ORDERED: Aggrastat 12.5 MG/250 ML 250 ML IVPB SCH (18:30)
[2020-09-05] MEDS ORDERED: Aggrastat 12.5 MG/250 ML 250 ML ONE (18:38)
[2020-09-05] MEDS ORDERED: Clopidogrel Bisulfate 300 MG TAB PO SCH (18:45)
--- NOTE | 2020-09-05 18:45 | PRG ---
DATE OF SERVICE: 09/05/2020 Mrs. Castro started to decompensate and became more short of breath and could not maintain her airway safely, so she had to be intubated emergently in the ER. Now that her airway is controlled, it would be safer to do a heart catheterization, and she was taken emergently to the catheterization lab. She was found to have an occluded left circumflex. This has probably been occluded for over 24 hours. We attempted to pass a wire. My suspicion is that the wire was in the subintimal space and so there was a balloon angioplasty done; however, because we thought we were in the subintimal space and it looked like a very small artery that already had collaterals from the LAD distally, we decided to abort the procedure and just treat her medically. Her MO is probably over 24 hours in evolution now, so the benefit of opening up this artery is minimal to none at this point. The biggest concern would be if her MR were to become worse. She had moderate mitral regurgitation on the echo done earlier today. We will repeat an echo tomorrow to see where she stands. Otherwise, we will try to diurese her some more. Her blood pressure is in the 160s/100s, so she is stable at this time; however, her EF is significantly reduced at about 30%. Continue supportive care and continue medical therapy for now. We will do Aggrastat for 12 hours. 45 minutes of critical care time at bedside on top of admission H and P. Job ID: [id number]
[2020-09-05 20:40] LABS: Troponin I 257.362 ng/mL (< 0.028)
[2020-09-06 00:40] LABS: Troponin I 414.817 ng/mL (< 0.028)
[2020-09-06 04:59] LABS: ALT (SGPT) 144 U/L (8-55); AST (SGOT) 644 U/L (5-34); Albumin 3.5 g/dL (3.4-4.8); Alkaline Phosphatase 102 U/L (40-110); Anion Gap 15 mmol/L (10-20); BUN (Urea Nitrogen) 14 mg/dL (9.8-20.1); Bilirubin, Total 0.4 mg/dL (0.2-1.2); Calc. Creatinine Clearance 65 mL/min (70-130); Calcium 9.6 mg/dL (7.8-10.44); Carbon Dioxide 27 mmol/L (23-31); Chloride 107 mmol/L (98-107); Globulin 2.7 g/dL (2.4-3.5); Glucose 108 mg/dL (80-115); Potassium 3.2 mmol/L (3.5-5.1); Protein, Total 6.2 g/dL (6.0-8.3); Sodium 146 mmol/L (136-145)
[2020-09-06 05:20] LABS: #Lymphocytes 1.4 thou/uL (1.20-3.40); #Monocytes 1.5 thou/uL (0.11-0.59); #Neutrophils 13.8 thou/uL (1.40-6.50); %Eosinophils 0.1 % (0.0-10.0); %Lymphocytes 8.5 % (21.0-51.0); %Monocytes 8.8 % (0.0-10.0); %Neutrophils 82.6 % (42.0-75.0); Hemoglobin 14.1 g/dL (12.0-16.0); Mean Corpuscular HGB CONC 32.5 g/dL (32.0-36.0); Mean Corpuscular Hemoglobin 33.9 pg (27.0-31.0); Mean Platelet Volume 9.6 fL (7.4-10.4); Platelet Count 120 thou/uL (130-400); RBC Distribution Width 13.9 % (11.5-14.5); Red Blood Cell (RBC) Count 4.15 mill/uL (4.20-5.40); White Blood Cell (WBC) Count 16.8 thou/uL (4.8-10.8)
[2020-09-06 05:21] LABS: Band 5 % (5-11); Lymphocytes 9 % (21-51); MDiff Complete? YES; Monocytes 6 % (0-10); Neutrophil 80 % (42-75); Platelet Morphology Comment Appears Decreased
[2020-09-06] MEDS ORDERED: Potassium Chloride 20 MEQ TAB PO SCH (06:30)
--- NOTE | 2020-09-06 06:49 | PDOC.FM ---
- Subjective Subjective: Pt is intubated w/ minimal sedation. She has no concerns at this time. She would like sister updated. She had a cath yesterday and will undergo medical management. - Objective Vital Signs & Weight: Vital Signs (12 hours) Temp Pulse Resp BP Pulse Ox 09/06/20 06:00 16 09/06/20 04:00 97.8 F 16 09/06/20 03:14 97 139/102 H 09/06/20 02:00 14 09/06/20 01:00 98 09/06/20 00:58 95 14 98 09/06/20 00:00 97.8 F 16 09/05/20 23:20 103 H 130/98 H 09/05/20 22:00 14 09/05/20 21:00 97.9 F 09/05/20 20:00 27 H 95 09/05/20 19:22 106 H Weight Weight 46.9 kg Most Recent Monitor Data Heart Rate from ECG 104 NIBP 129/83 NIBP BP-Mean 98 Respiration from ECG 15 SpO2 99 I&O: 09/04/20 09/05/20 09/06/20 06:59 06:59 06:59 Intake Total 181 Output Total 1225 Balance -1044 Result Diagrams: 09/06/20 04:11 09/06/20 04:11 Phys Exam - Physical Examination Constitutional: NAD HEENT: PERRLA, sclera anicteric Neck: no JVD, full ROM Respiratory: no wheezing, clear to auscultation bilateral Cardiovascular: RRR, no significant murmur Gastrointestinal: soft, positive bowel sounds Musculoskeletal: no edema, pulses present Skin: no rash, cap refill <2 seconds Dx/Plan - Plan Plan: Acute Hypoxic Respiratory Failure 2/2 pulmonary edema secondary to acute NSTEMI - cath - medical management - cardiology consulted, appreciate recs - pulm consulted, appreciate recs - trop 419 HFrEF - Cath showed 30% EF - Echo today - Diuresis with IV lasix - pt will need beta carola, statin, simon-i COPD - Duonebs ANAYELI Q6H, PRN Q4H - Will hold off on steroid and abx at this time Polycythemia - Continue to monitor HTN -Hold home medications at this time Transaminitis - likley 2/2 congestion GI ppx: pepcid Code: full PCP: Monse SHEPARD Dispo: Admit to inpatient IMCU, expected LOS > 48 hrs Addendum - Attending - Attending Attestation Date/Time: 09/06/20 1100 I personally evaluated the patient and discussed the management with Dr. Middleton. I agree with the History, Examination, Assessment and Plan documented above with any addition or exceptions noted below. Patient here for respiratory failure suspected 2/2 PR. She underwent cath yesterday but unable to correct blockage. Cards and Pulm on case. Correct volume status, ensure no cardiogenic shock, and wean from vent as tolerated. Echo shows overall similar EF as previously known.
[2020-09-06] MEDS: Clopidogrel Bisulfate 75 MG TAB PO SCH (08:52)
[2020-09-06] MEDS: Pantoprazole 40 MG VIAL IVP SCH (08:52)
[2020-09-06] MEDS ORDERED: Enoxaparin Sodium 30 MG/0.3 ML SYRINGE SC SCH (09:00)
[2020-09-06] MEDS ORDERED: DC Sedation Protocol FS ONE (09:51)
[2020-09-06] MEDS ORDERED: Furosemide 40 MG/4 ML VIAL SLOW IVP SCH (10:00)
--- NOTE | 2020-09-06 10:06 | PRG ---
DATE OF SERVICE: 09/06/2020 35 minutes critical time. SUBJECTIVE: The patient is doing very well. She had a cardiac catheterization yesterday showed circumflex narrowing, which could not be opened. She is on CPAP pressure support this morning, breathing well. OBJECTIVE: VITAL SIGNS: O2 saturation 97%, temperature 97.8, pulse 90, blood pressure 131/88. HEENT: Unremarkable. NECK: No adenopathy or JVD. LUNGS: Clear. CARDIAC: S1, S2, regular, 2/6 systolic murmur. ABDOMEN: Soft. EXTREMITIES: No edema. LABORATORY: White blood cell count 16.8, hematocrit 34, platelet count 120. Sodium 146, potassium 3.2, BUN 14, creatinine 0.6, glucose 108. Troponin . ASSESSMENT: 1. Myocardial infarction. 2. Congestive heart failure. PLAN: She meets criteria for extubation. We can diurese intermittently if needed. Job ID: [id number]
[2020-09-06 10:22] LABS: HBSAB Concentration Less than 8.00 mIU/mL; HBSAg Index 0.15 S/CO (0-0.99); Hep A IgM AB Non-Reactive (NonReactive); Hep A IgM S/CO 0.21 S/CO (0-0.79); Hep B Core Total Ab Non-Reactive (NonReactive); Hep B Surf AB Non-Reactive (NonReactive); Hep B Surf Ag Non-Reactive S/CO (NonReactive); Hep C IgG Ab Non-Reactive (NonReactive); Hep C Index 0.08 S/CO (0-0.79)
--- NOTE | 2020-09-06 13:07 | PDOC.CPN ---
- Subjective Date: 09/06/20 Time: 13:05 Interval history: She is doing better. Close to being extubated. Following commands. - Review of Systems ROS unobtainable: due to endotracheal tube - Objective Allergies/Adverse Reactions: Allergies Allergy/AdvReac Type Severity Reaction Status Date / Time No Known Allergies Allergy Verified 05/02/20 06:29 Visit Medications: Current Medications Acetaminophen (Acetaminophen 325 Mg Tab) 650 mg PO Q4H PRN PRN Reason: Headache/Fever/Mild Pain (1-3) Acetaminophen (Acetaminophen 650 Mg Suppository) 650 mg OK Q4H PRN PRN Reason: Headache/Fever/Mild Pain (1-3) Albuterol/Ipratropium (Ipratropium/Albuterol Sulfate 3 Ml Neb) 3 ml NEB [id number] [facility] Last Admin: 09/06/20 12:26 Dose: 3 ml Documented by: Calcium Carbonate (Calcium Carbonate 500 Mg Chewtab) 1,000 mg PO Q4H PRN PRN Reason: Heartburn or Indigestion Clopidogrel Bisulfate (Clopidogrel Bisulfate 75 Mg Tab) 75 mg PO DAILY [facility] Last Admin: 09/06/20 08:52 Dose: 75 mg Documented by: Influenza Virus Vaccine Quadrival (Flu Vacc [id number](6mos Up)/Pf 60 Mcg/0.5 Ml Syringe) 60 mcg IM .ONCE ONE Stop: 09/06/20 21:01 Miscellaneous Medication (Electrolyte Replacement Protocol) 1 each FS ASDIR [facility] Ondansetron HCl (Ondansetron Odt 4 Mg Tab) 4 mg PO Q6H PRN PRN Reason: Nausea/Vomiting Ondansetron HCl (Ondansetron Pf 4 Mg/2 Ml Vial) 4 mg IVP Q6H PRN PRN Reason: Nausea/Vomiting Pantoprazole Sodium (Pantoprazole 40 Mg Vial) 40 mg IVP DAILY [facility] Last Admin: 09/06/20 08:52 Dose: 40 mg Documented by: Sodium Chloride (Flush - Normal Saline 10 Ml Syringe) 10 ml IVF PRN PRN PRN Reason: Saline Flush Vital Signs & Weight: Vital Signs Temp Pulse Resp BP Pulse Ox 09/06/20 12:27 112 H 19 98 09/06/20 12:26 110 H 21 H 96 09/06/20 10:00 19 09/06/20 08:03 109 H 09/06/20 08:02 108 H 16 96 09/06/20 08:00 17 99 09/06/20 07:00 98.3 F 09/06/20 06:00 16 09/06/20 04:00 97.8 F 16 09/06/20 03:14 97 139/102 H 09/06/20 02:00 14 Weight 103 lb 6.349 oz - Physical Exam General: no apparent distress HEENT: mucus membranes moist Neck: supple neck Cardiac: regular rate and rhythm, tachycardia Lungs: clear to auscultation Neuro: no lateralizing findings Abdomen: active bowel sounds Extremities: no edema Skin: clear Musculoskeletal: normal range of motion - Labs Result Diagrams: 09/06/20 04:11 09/06/20 04:11 Troponin/CKMB CK-MB (CK-2) 597.4 ng/mL (0-6.6) H* 09/05/20 12:48 Troponin I 414.817 ng/mL (< 0.028) H* 09/05/20 22:57 - Telemetry Sinus rhythms and dysrhythmias: sinus tachycardia - Assessment/Plan Assessment/Plan: 1. NSTEMI 2. Occluded LCx 3. Very Late presentation OK. 4. Acute on chronic systolic heart failure 5. Acute hypoxic respiratory insufficiency. PLAN: - EF better on echo done today probably around 35-40%. - MR is also better looks mild today. - Agree with coninuted IV lasix - Agree with extubation per critical care. - Will need ASA/Plavix - BB and ACEI if BP allow. Will decide after extubation - Critical Care Time Critical care time (mins): 30
[2020-09-06] MEDS ORDERED: Mometasone 200 MCG/Formoterol 5 MCG 120 PUFF INHALER INH PRN (14:02)
[2020-09-06 20:33] LABS: Anion Gap 15 mmol/L (10-20); BUN (Urea Nitrogen) 15 mg/dL (9.8-20.1); Calc. Creatinine Clearance 64 mL/min (70-130); Calcium 10.1 mg/dL (7.8-10.44); Carbon Dioxide 24 mmol/L (23-31); Chloride 105 mmol/L (98-107); Glucose 84 mg/dL (80-115); Potassium 4.2 mmol/L (3.5-5.1); Sodium 140 mmol/L (136-145)
[2020-09-06] MEDS ORDERED: Lactated Ringer's 250 ML IV SCH ×2 (20:45→22:15)
[2020-09-06] MEDS ORDERED: FLU VACC QS2020-21(6MOS UP)/PF 60 MCG/0.5 ML SYRINGE IM ONE (21:00)
[2020-09-06] MEDS: Melatonin 3 MG TAB PO PRN (21:02)
[2020-09-06] MEDS: Lisinopril 10 MG TAB PO SCH (21:04)
[2020-09-06] MEDS: Atorvastatin Calcium 40 MG TAB PO SCH (21:04)
[2020-09-06] MEDS: Polyethylene Glycol 3350 17 GM Packet PO SCH (21:05)
[2020-09-06] MEDS ORDERED: Metoprolol Tartrate 5 MG/5 ML VIAL IVP SCH (23:14)
[2020-09-06] MEDS ORDERED: Metoprolol Tartrate 25 MG TAB PO SCH (23:45)
[2020-09-07 05:11] LABS: ALT (SGPT) 99 U/L (8-55); AST (SGOT) 242 U/L (5-34); Albumin 3.1 g/dL (3.4-4.8); Alkaline Phosphatase 85 U/L (40-110); Anion Gap 11 mmol/L (10-20); BUN (Urea Nitrogen) 14 mg/dL (9.8-20.1); Bilirubin, Total 0.7 mg/dL (0.2-1.2); Calc. Creatinine Clearance 70 mL/min (70-130); Calcium 9.8 mg/dL (7.8-10.44); Carbon Dioxide 30 mmol/L (23-31); Chloride 104 mmol/L (98-107); Globulin 2.7 g/dL (2.4-3.5); Glucose 77 mg/dL (80-115); Protein, Total 5.8 g/dL (6.0-8.3); Sodium 141 mmol/L (136-145)
--- NOTE | 2020-09-07 05:52 | PDOC.FM ---
- Subjective Subjective: Patient is resting comfortably in bed. No concerns. Denies CP, SOB, N/V. Patient had 40 beat of vtach overnight - 1923, Dr. Williamson Cardiology was consulted and recommended IV push 5 lopressor, then PO lopressor 25 BID, stop metoprolol. Only short episodes of vtach (3-4 beats) intermittently since. - Objective MAR Reviewed: Yes Vital Signs & Weight: Vital Signs (12 hours) Temp Pulse Resp BP Pulse Ox 09/07/20 04:00 98.9 F 110 H 28 H 120/74 95 09/07/20 00:16 106 H 129/87 09/07/20 00:14 96 09/07/20 00:11 100 16 99 09/06/20 23:48 95 132/90 09/06/20 23:46 98 129/88 09/06/20 23:44 99 133/90 09/06/20 23:42 106 H 131/88 09/06/20 23:37 116 H 128/81 09/06/20 19:30 98.2 F 125 H 24 H 161/95 H 97 09/06/20 18:41 114 H 16 98 09/06/20 18:10 98.7 F 124 H 24 H 165/70 H 96 Weight Admit Weight 48.2 kg Weight 46.9 kg Most Recent Monitor Data Heart Rate from ECG 117 NIBP 158/89 NIBP BP-Mean 112 Respiration from ECG 20 SpO2 96 I&O: 09/05/20 09/06/20 09/07/20 06:59 06:59 06:59 Intake Total 181 324.6 Output Total 1225 2025 Balance -1044 -1700.4 Result Diagrams: 09/06/20 04:11 09/07/20 04:22 Phys Exam - Physical Examination Constitutional: NAD HEENT: PERRLA, moist MMs Respiratory: no wheezing, clear to auscultation bilateral Cardiovascular: no significant murmur tachycardic Gastrointestinal: soft, non-tender, positive bowel sounds Neurological: non-focal Dx/Plan - Plan Plan: Acute Hypoxic Respiratory Failure 2/2 pulmonary edema secondary to acute NSTEMI Cath showed occluded LCx -> medical management Trop 419 Vtach - 40 beats 1923 on 09/07, patient give 5 IV lopressor, started on lopressor [address] Williamson recs. - cardiology consulted, appreciate recs - continue medical management, continue IV lasix - possible EP consult today - pulm consulted, appreciate recs - patient intubated 09/05, extubated 09/06, moved to tele floor - continue tele monitoring HFrEF - Cath showed 30% EF - Echo 09/06: EF 35-5-% - Diuresis with IV lasix - Continue beta carola, aceI, statin COPD - Duonebs ANAYELI Q6H, PRN Q4H - Will hold off on steroid and abx at this time Polycythemia - Continue to monitor HTN -Hold home medications at this time Transaminitis - daphne 10/01 congestion GI ppx: pepcid Code: full PCP: Monse SHEPARD DVT ppx: lovenox Dispo: tele floor, expected LOS > 48 hrs Addendum - Attending - Attending Attestation Date/Time: 09/07/20 [id number] I personally evaluated the patient and discussed the management with Dr. Marie I agree with the History, Examination, Assessment and Plan documented above with any addition or exceptions noted below. Note ACS NSTEMI with CAD for medical management. Patient admonished to stop smoking. Run of Vtach last pm currently on IV lopressor lytes mg++ wnl. Cardiology for any further recommendations.
[2020-09-07] MEDS ORDERED: Magnesium 2 GM/50 ML 2 GM in Premix Bag 1 BAG IVPB SCH (06:30)
[2020-09-07] MEDS: Aspirin 81 mg Enteric Coated Tablet PO SCH (07:50)
[2020-09-07] MEDS: Folic Acid 1 MG TAB PO SCH (07:51)
[2020-09-07] MEDS: Lisinopril 10 MG TAB PO SCH ×2 (07:51→21:14)
[2020-09-07] MEDS: Polyethylene Glycol 3350 17 GM Packet PO SCH ×2 (07:51→21:15)
[2020-09-07] MEDS: Pantoprazole 40 MG VIAL IVP SCH (07:52)
[2020-09-07] MEDS: Clopidogrel Bisulfate 75 MG TAB PO SCH (07:52)
[2020-09-07] MEDS: Multivit, Therapeutic 1 TAB PO SCH (07:52)
[2020-09-07] MEDS: Cyanocobalamin (Vitamin B-12) 1,000 MCG TAB PO SCH (07:52)
[2020-09-07] MEDS ORDERED: Metoprolol Tartrate 25 MG TAB PO SCH (09:00)
[2020-09-07] MEDS ORDERED: Amlodipine 5 MG TAB PO SCH (09:00)
[2020-09-07] MEDS: Acetaminophen 325 MG TAB PO PRN ×3 (09:32→21:14)
[2020-09-07] MEDS: Enoxaparin Sodium 30 MG/0.3 ML SYRINGE SC SCH (09:32)
[2020-09-07] MEDS ORDERED: Furosemide 20 MG/2 ML VIAL SLOW IVP SCH (10:00)
--- NOTE | 2020-09-07 16:03 | PRG ---
DATE OF SERVICE: 09/07/2020 OBJECTIVE: GENERAL: Lynda Castro is in no distress. She is extremely cachectic appearing. VITAL SIGNS: She is afebrile, heart rate is 86, respiratory rate 20, oximetry is 92% on 2 L, 84% on room air, blood pressure 108/66. LUNGS: Clear. HEART: Regular rhythm. ABDOMEN: Soft. LABORATORY STUDIES: Electrolytes are normal. Creatinine is 0.6; AST 42, down from 644; ALT 99, down from 144; albumin is 3.1. IMPRESSION: 1. Congestive heart failure with myocardial infarction. 2. Status post mechanical ventilation. 3. Cachexia. We will see her over the weekend as needed. Job ID: [id number]
[2020-09-07] MEDS: Carvedilol 6.25 MG TAB PO SCH (17:16)
[2020-09-07] MEDS: Melatonin 3 MG TAB PO PRN (21:13)
[2020-09-07] MEDS: Atorvastatin Calcium 40 MG TAB PO SCH ×2 (21:13→21:14)
[2020-09-08 04:40] LABS: #Lymphocytes 1.2 thou/uL (1.20-3.40); #Neutrophils 9.7 thou/uL (1.40-6.50); %Basophils 0.1 % (0.0-1.0); %Eosinophils 0.1 % (0.0-10.0); %Lymphocytes 10.1 % (21.0-51.0); %Monocytes 8.5 % (0.0-10.0); %Neutrophils 81.2 % (42.0-75.0); Hemoglobin 12.9 g/dL (12.0-16.0); Mean Corpuscular HGB CONC 32.5 g/dL (32.0-36.0); Mean Corpuscular Hemoglobin 33.8 pg (27.0-31.0); Platelet Count 127 thou/uL (130-400); RBC Distribution Width 13.5 % (11.5-14.5); Red Blood Cell (RBC) Count 3.83 mill/uL (4.20-5.40)
[2020-09-08 05:03] LABS: ALT (SGPT) 64 U/L (8-55); AST (SGOT) 91 U/L (5-34); Albumin 2.9 g/dL (3.4-4.8); Alkaline Phosphatase 78 U/L (40-110); Anion Gap 12 mmol/L (10-20); BUN (Urea Nitrogen) 16 mg/dL (9.8-20.1); Calc. Creatinine Clearance 76 mL/min (70-130); Calcium 9.6 mg/dL (7.8-10.44); Carbon Dioxide 28 mmol/L (23-31); Chloride 105 mmol/L (98-107); Globulin 2.6 g/dL (2.4-3.5); Glucose 79 mg/dL (80-115); Potassium 3.9 mmol/L (3.5-5.1); Protein, Total 5.5 g/dL (6.0-8.3); Sodium 141 mmol/L (136-145)
--- NOTE | 2020-09-08 07:47 | PDOC.FM ---
- Subjective Subjective: Patient is resting comfortably in bed. Reports some musculoskeletal pain in her left pectoral region when she lays on her left side, resolved with turning over. No SOB, N/V, fever or chills. - Objective MAR Reviewed: Yes Vital Signs & Weight: Vital Signs (12 hours) Temp Pulse Resp BP BP Pulse Ox 09/08/20 04:00 98.9 F 104 H 20 107/71 97 09/08/20 00:00 98.8 F 90 20 106/71 97 09/07/20 21:14 113/76 09/07/20 20:00 98.9 F 87 20 99/62 100 Weight Admit Weight 48.2 kg Weight 43.4 kg Most Recent Monitor Data Heart Rate from ECG 117 NIBP 158/89 NIBP BP-Mean 112 Respiration from ECG 20 SpO2 96 I&O: 09/07/20 09/08/20 09/09/20 06:59 06:59 06:59 Intake Total 1064.6 480 Output Total 2525 1200 Balance -1460.4 -720 Result Diagrams: 09/08/20 04:05 09/08/20 04:05 Phys Exam - Physical Examination Constitutional: NAD HEENT: PERRLA Left-sided rales, slight increase in respirations from yesterday Cardiovascular: RRR, no significant murmur Gastrointestinal: soft, non-tender, positive bowel sounds Musculoskeletal: no edema mild TTP Left axillary region Dx/Plan - Plan Plan: Acute Hypoxic Respiratory Failure 2/2 pulmonary edema secondary to acute NSTEMI Trop 419 Cath showed occluded LCx -> medical management - cardiology consulted, appreciate recs - Patient was started on Lopressor BID 09/06 d/t 40 beats vtach, yesterday 09/07 this was switched to coreg 12.5BID, no events overnight - continue medical management, continue IV lasix - pulm consulted, appreciate recs - patient intubated 09/05, extubated 09/06, moved to tele floor, continue medical management - continue tele monitoring HFrEF - Cath showed 30% EF - Echo 09/06: EF 35-5-% - Diuresis with IV lasix, gave 20 IVP yesterday, will increase to 40 IVP today - Continue beta carola, aceI, statin COPD - Duonebs ANAYELI Q6H, PRN Q4H - Will hold off on steroid and abx at this time Polycythemia - Continue to monitor HTN -Hold home medications at this time Transaminitis, improving - mainorley 2/2 congestion GI ppx: pepcid Code: full PCP: Monse SHEPARD DVT ppx: lovenox Dispo: tele floor, expected LOS > 48 hrs Addendum - Attending - Attending Attestation Date/Time: 09/08/20 [id number] I personally evaluated the patient and discussed the management with Dr. Marie I agree with the History, Examination, Assessment and Plan documented above with any addition or exceptions noted below. Will need to continue medication management of HFrEF in setting of recent NSTEMI ventricular irritability explore candidacy for lifevest etc.
[2020-09-08] MEDS: Lisinopril 10 MG TAB PO SCH ×2 (08:25→21:23)
[2020-09-08] MEDS: Aspirin 81 mg Enteric Coated Tablet PO SCH (08:26)
[2020-09-08] MEDS: Cyanocobalamin (Vitamin B-12) 1,000 MCG TAB PO SCH (08:26)
[2020-09-08] MEDS: Clopidogrel Bisulfate 75 MG TAB PO SCH (08:26)
[2020-09-08] MEDS: Folic Acid 1 MG TAB PO SCH (08:26)
[2020-09-08] MEDS: Multivit, Therapeutic 1 TAB PO SCH (08:26)
[2020-09-08] MEDS: Carvedilol 6.25 MG TAB PO SCH ×2 (08:26→16:57)
[2020-09-08] MEDS: Polyethylene Glycol 3350 17 GM Packet PO SCH ×2 (08:27→21:18)
[2020-09-08] MEDS: Enoxaparin Sodium 30 MG/0.3 ML SYRINGE SC SCH (08:34)
[2020-09-08] MEDS ORDERED: Furosemide 40 MG/4 ML VIAL SLOW IVP SCH (08:45)
[2020-09-08 08:59] LABS: Magnesium 1.9 mg/dL (1.6-2.6)
[2020-09-08 09:02] LABS: Phosphorus 1.8 mg/dL (2.3-4.7)
[2020-09-08] MEDS ORDERED: Magnesium Sulfate 2 GM in Sodium Chloride 0.9% 100 ML IVPB SCH (09:30)
[2020-09-08] MEDS ORDERED: PHOS-NAK 1 PKT PACK PO SCH (09:30)
[2020-09-08] MEDS ORDERED: Magnesium 2 GM/50 ML 2 GM in Premix Bag 1 BAG IVPB SCH (09:30)
[2020-09-08] MEDS: Benzonatate 100 MG CAP PO PRN (10:22)
[2020-09-09 05:11] LABS: ALT (SGPT) 48 U/L (8-55); AST (SGOT) 45 U/L (5-34); Albumin 3.1 g/dL (3.4-4.8); Alkaline Phosphatase 84 U/L (40-110); Anion Gap 15 mmol/L (10-20); BUN (Urea Nitrogen) 21 mg/dL (9.8-20.1); Bilirubin, Total 0.9 mg/dL (0.2-1.2); Calc. Creatinine Clearance 62 mL/min (70-130); Carbon Dioxide 27 mmol/L (23-31); Chloride 102 mmol/L (98-107); Globulin 3.1 g/dL (2.4-3.5); Glucose 75 mg/dL (80-115); Magnesium 1.9 mg/dL (1.6-2.6); Potassium 3.5 mmol/L (3.5-5.1); Protein, Total 6.2 g/dL (6.0-8.3); Sodium 140 mmol/L (136-145)
[2020-09-09 05:13] LABS: Phosphorus 2.6 mg/dL (2.3-4.7)
--- NOTE | 2020-09-09 06:58 | PDOC.FM ---
- Subjective Subjective: Patient resting comfortably in bed. She has been having trouble eating because she has no teeth. Overnight, her BP was soft and the night team held home BP meds. No acute events as per tele - Objective MAR Reviewed: Yes Vital Signs & Weight: Vital Signs (12 hours) Temp Pulse Resp BP Pulse Ox 09/09/20 04:00 97.6 F 90 17 127/71 97 09/09/20 00:00 98.2 F 82 14 95/59 L 96 09/08/20 21:15 88 106/67 09/08/20 19:39 97.2 F L 89 20 114/74 98 Weight Admit Weight 48.2 kg Weight 41.8 kg Most Recent Monitor Data Heart Rate from ECG 117 NIBP 158/89 NIBP BP-Mean 112 Respiration from ECG 20 SpO2 96 I&O: 09/07/20 09/08/20 09/09/20 06:59 06:59 06:59 Intake Total 1064.6 480 700 Output Total 2525 1200 Balance -1460.4 -720 700 Result Diagrams: 09/08/20 04:05 09/09/20 04:18 Phys Exam - Physical Examination Constitutional: NAD (patient is very cachectic) Neck: no JVD, supple Respiratory: no wheezing Cardiovascular: RRR, no significant murmur Gastrointestinal: soft, non-tender, positive bowel sounds Musculoskeletal: no edema, pulses present Neurological: normal sensation, moves all 4 limbs Psychiatric: A&O x 3 Skin: normal turgor Dx/Plan - Plan Plan: Acute Hypoxic Respiratory Failure 2/2 pulmonary edema secondary to acute NSTEMI Trop 419 Cath showed occluded LCx -> medical management - cardiology consulted, appreciate recs - Patient was started on Lopressor BID 09/06 d/t 40 beats vtach, yesterday 09/07 this was switched to coreg 12.5BID, no events overnight - continue medical management, continue IV lasix - pulm consulted, appreciate recs - patient intubated 09/05, extubated 09/06, moved to tele floor, continue medical management - continue tele monitoring HFrEF - Cath showed 30% EF - Echo 09/06: EF 35-5-% - Diuresis with IV lasix, gave 20 IVP yesterday, will increase to 40 IVP today - Continue beta carola, aceI, statin COPD - Duonebs ANAYELI Q6H, PRN Q4H - Will hold off on steroid and abx at this time Polycythemia - Continue to monitor HTN -Hold home medications at this time Transaminitis, improving - mainorley 2/2 congestion GI ppx: pepcid Code: full PCP: Monse SHEPARD DVT ppx: lovenox Diet: Ensure, regular. Speech consulted given patient has no teeth and was recently intubated Dispo: tele floor, expected LOS > 48 hrs. Pending cardiology recs Addendum - Attending - Attending Attestation Date/Time: 09/09/20 1038 I personally evaluated the patient and discussed the management with Dr. Lott. I agree with the History, Examination, Assessment and Plan documented above with any addition or exceptions noted below. Patient up and working with PT this morning. She denies concerns. Here for CHF and [place]. Awaiting further cardiology recs. Repeat TTE stable. Anticipate she will need some sort of therapy or rehab once she is stable for discharge.
[2020-09-09] MEDS: Multivit, Therapeutic 1 TAB PO SCH (08:27)
[2020-09-09] MEDS: Lisinopril 10 MG TAB PO SCH ×2 (08:27→20:06)
[2020-09-09] MEDS: Enoxaparin Sodium 30 MG/0.3 ML SYRINGE SC SCH (08:29)
[2020-09-09] MEDS: Polyethylene Glycol 3350 17 GM Packet PO SCH ×2 (08:29→20:06)
[2020-09-09] MEDS: Carvedilol 6.25 MG TAB PO SCH ×2 (08:30→18:11)
[2020-09-09] MEDS: Folic Acid 1 MG TAB PO SCH (08:31)
[2020-09-09] MEDS: Clopidogrel Bisulfate 75 MG TAB PO SCH (08:31)
[2020-09-09] MEDS: Aspirin 81 mg Enteric Coated Tablet PO SCH (08:31)
[2020-09-09] MEDS: Cyanocobalamin (Vitamin B-12) 1,000 MCG TAB PO SCH (08:31)
--- NOTE | 2020-09-09 10:23 | PRG ---
DATE OF SERVICE: 09/09/2020 SUBJECTIVE: Patient is doing reasonably well except for shortness of breath. OBJECTIVE: VITAL SIGNS: Temperature 98.3, pulse 97, respirations 19, O2 saturation 96% on room air, blood pressure . HEENT: Unremarkable. NECK: No JVD. LUNGS: Few inspiratory crackles. CARDIAC: S1 and S2. Regular. ABDOMEN: Soft. EXTREMITIES: No edema. LABORATORY DATA: Sodium 140, potassium 3.5, BUN 21, creatinine 0.6, glucose 75. ASSESSMENT: Status post respiratory failure secondary to cardiogenic shock from myocardial infarction. PLAN: Increase activity as tolerated. Will likely need some low-flow oxygen if she continues to desat with exercise. No more recommendations at this time. Job ID: [id number]
[2020-09-09] MEDS ORDERED: Ondansetron PF 4 MG/2 ML Vial IVP PRN (11:11)
--- NOTE | 2020-09-09 14:42 | PRG ---
DATE OF SERVICE: 09/09/2020 SUBJECTIVE: Ms. Castro is still weak and fatigued. She has tried to walk in the halls but did not get very far. OBJECTIVE: VITAL SIGNS: Her blood pressure dropped to 90/50, pulse is 86. LUNGS: Clear. CARDIAC: Normal S1 and S2. No murmur, rub, or gallop. ABDOMEN: Soft, nontender. She is extremely underweight. ASSESSMENT: 1. Recent posterior myocardial infarction. 2. Weight loss of unknown etiology. Said she used to weigh 140 pounds, now she is down to 92. Also, low albumin of 3.1. 3. Relatively low blood pressure. PLAN: 1. I may have to reduce beta carola. 2. We will reduce TAE inhibitor. Continue to monitor the patient. Job ID: [id number]
[2020-09-09] MEDS: Benzonatate 100 MG CAP PO PRN (20:04)
[2020-09-09] MEDS: Atorvastatin Calcium 40 MG TAB PO SCH (20:04)
[2020-09-10 05:15] LABS: #Eosinphils 0.1 thou/uL (0.0-0.7); #Lymphocytes 1.8 thou/uL (1.20-3.40); #Monocytes 1.1 thou/uL (0.11-0.59); #Neutrophils 6.1 thou/uL (1.40-6.50); %Basophils 0.1 % (0.0-1.0); %Lymphocytes 20.1 % (21.0-51.0); %Monocytes 12.4 % (0.0-10.0); %Neutrophils 66.3 % (42.0-75.0); Hemoglobin 14.3 g/dL (12.0-16.0); Mean Corpuscular HGB CONC 32.2 g/dL (32.0-36.0); Mean Corpuscular Hemoglobin 33.3 pg (27.0-31.0); Mean Platelet Volume 9.2 fL (7.4-10.4); Platelet Count 189 thou/uL (130-400); RBC Distribution Width 12.9 % (11.5-14.5); White Blood Cell (WBC) Count 9.2 thou/uL (4.8-10.8)
[2020-09-10 05:39] LABS: ALT (SGPT) 34 U/L (8-55); AST (SGOT) 31 U/L (5-34); Albumin 2.9 g/dL (3.4-4.8); Alkaline Phosphatase 78 U/L (40-110); Anion Gap 13 mmol/L (10-20); BUN (Urea Nitrogen) 17 mg/dL (9.8-20.1); Bilirubin, Total 0.9 mg/dL (0.2-1.2); Calc. Creatinine Clearance 62 mL/min (70-130); Calcium 9.9 mg/dL (7.8-10.44); Carbon Dioxide 27 mmol/L (23-31); Chloride 102 mmol/L (98-107); Globulin 2.9 g/dL (2.4-3.5); Glucose 88 mg/dL (80-115); Potassium 3.6 mmol/L (3.5-5.1); Protein, Total 5.8 g/dL (6.0-8.3); Sodium 138 mmol/L (136-145)
[2020-09-10 06:57] LABS: Magnesium 1.8 mg/dL (1.6-2.6); Phosphorus 2.6 mg/dL (2.3-4.7)
--- NOTE | 2020-09-10 07:46 | RAD ---
EXAM: Single view of the chest HISTORY: Hypoxia COMPARISON: 09/05/2020 FINDINGS: Single view of the chest shows a normal sized cardiomediastinal silhouette. Atheroscleroti c calcifications are seen in the aorta. There is increased opacity of the left thorax which may represent a left pleural effusion and adjacent atelectasis versus infiltrate. Hyperexpansion of the l ungs is likely secondary to COPD. No acute osseous abnormality. IMPRESSION: Left pleural effusion with adjacent atelectasis versus infiltrate
[2020-09-10] MEDS: Lisinopril 10 MG TAB PO SCH ×2 (08:09→20:20)
[2020-09-10] MEDS: Enoxaparin Sodium 30 MG/0.3 ML SYRINGE SC SCH (08:09)
[2020-09-10] MEDS: Multivit, Therapeutic 1 TAB PO SCH (08:10)
[2020-09-10] MEDS: Carvedilol 6.25 MG TAB PO SCH ×2 (08:10→16:18)
[2020-09-10] MEDS: Cyanocobalamin (Vitamin B-12) 1,000 MCG TAB PO SCH (08:10)
[2020-09-10] MEDS: Clopidogrel Bisulfate 75 MG TAB PO SCH (08:11)
[2020-09-10] MEDS: Folic Acid 1 MG TAB PO SCH (08:11)
[2020-09-10] MEDS: Polyethylene Glycol 3350 17 GM Packet PO SCH ×2 (08:11→20:20)
[2020-09-10] MEDS: Aspirin 81 mg Enteric Coated Tablet PO SCH (08:11)
--- NOTE | 2020-09-10 08:32 | PDOC.FM ---
- Subjective Subjective: Patient put on NC yesterday 10/01 being SOB and desatting to 88% on RA. Still says she is SOB today, but improved with O2. Eating better now that speech gave her a diet that she is able to take without teeth. Been working with IS and PT. Patient says weight loss has been over years given her decreased appetite and no teeth making it difficult to eat anything. - Objective MAR Reviewed: Yes Vital Signs & Weight: Vital Signs (12 hours) Temp Pulse Resp BP Pulse Ox 09/10/20 07:34 98.4 F 88 16 117/72 92 L 09/10/20 05:15 93 L 09/10/20 04:00 98.0 F 80 14 111/59 L 93 L 09/09/20 23:40 97.7 F 73 16 109/69 92 L Weight Admit Weight 48.2 kg Weight 41.549 kg Most Recent Monitor Data Heart Rate from ECG 117 NIBP 158/89 NIBP BP-Mean 112 Respiration from ECG 20 SpO2 96 I&O: 09/09/20 09/10/20 09/11/20 06:59 06:59 06:59 Intake Total 700 1070 Balance 700 1070 Result Diagrams: 09/10/20 04:36 09/10/20 04:36 Phys Exam - Physical Examination Constitutional: NAD (cachectic) Neck: no nodes, supple Respiratory: no wheezing, no rales distant breath sounds. no obvious lung sounds or crackles Cardiovascular: RRR, no significant murmur distant heart sounds Gastrointestinal: soft, non-tender Musculoskeletal: no edema Neurological: normal sensation, moves all 4 limbs Psychiatric: normal affect, A&O x 3 Dx/Plan - Plan Plan: Acute Hypoxic Respiratory Failure 2/2 pulmonary edema secondary to acute NSTEMI Trop 419 Cath showed occluded LCx -> medical management - cardiology consulted, appreciate recs - Patient was started on Lopressor BID 09/06 d/t 40 beats vtach, yesterday 09/07 this was switched to coreg 12.5BID, no events overnight - continue medical management, continue IV lasix - pulm consulted, appreciate recs - patient intubated 09/05, extubated 09/06, moved to tele floor, continue medical management - continue tele monitoring -09/10 patient SOB and switched to NC. CXR showed L pleural effusion. Follow up procal. -Lasix 20 IV if patient's BP will tolerate HFrEF - Cath showed 30% EF - Echo 09/06: EF 35-5-% - Diuresis with IV lasix - Continue beta carola, aceI, statin COPD - Duonebs ANAYELI Q6H, PRN Q4H - Will hold off on steroid and abx at this time Polycythemia - Continue to monitor HTN -Hold home medications at this time Transaminitis, improving - mainorley 2/2 congestion GI ppx: pepcid Code: full PCP: Monse SHEPARD DVT ppx: lovenox Diet: Ensure, chopped HH Dispo: tele floor, expected LOS > 48 hrs. Pending cardiology recs and CM for inpatient rehab Addendum - Attending - Attending Attestation Date/Time: 09/10/20 8889 I personally evaluated the patient and discussed the management with Dr. Lott. I agree with the History, Examination, Assessment and Plan documented above with any addition or exceptions noted below. Patient reports feeling worse. CXR shows effusion in L lung, possibly dependent edema type as she is constantly laying on L side from what I have seen. Will attempt gentle diuresis. Cardiology involved, appreciate their re-eval and recs. She is volume up over the last 24 hours. Wean O2 as tolerated.
[2020-09-10] MEDS ORDERED: Furosemide 20 MG/2 ML VIAL SLOW IVP SCH (11:00)
[2020-09-10] MEDS: Benzonatate 100 MG CAP PO PRN (20:15)
[2020-09-10] MEDS: Atorvastatin Calcium 40 MG TAB PO SCH (20:15)
[2020-09-11 05:42] LABS: ALT (SGPT) 30 U/L (8-55); AST (SGOT) 29 U/L (5-34); Albumin 2.9 g/dL (3.4-4.8); Alkaline Phosphatase 76 U/L (40-110); Anion Gap 14 mmol/L (10-20); BUN (Urea Nitrogen) 14 mg/dL (9.8-20.1); Bilirubin, Total 0.7 mg/dL (0.2-1.2); Calc. Creatinine Clearance 56 mL/min (70-130); Calcium 9.8 mg/dL (7.8-10.44); Carbon Dioxide 27 mmol/L (23-31); Chloride 103 mmol/L (98-107); Globulin 3.1 g/dL (2.4-3.5); Glucose 105 mg/dL (80-115); Magnesium 1.8 mg/dL (1.6-2.6); Phosphorus 2.7 mg/dL (2.3-4.7); Potassium 3.7 mmol/L (3.5-5.1); Sodium 140 mmol/L (136-145)
--- NOTE | 2020-09-11 06:29 | PDOC.FM ---
- Subjective Subjective: Patient resting comfortably in bed on 2L NC. States her only complaints remain SOB and weakness. Working well with PT. Encouraged continued use of IS. CXR is improved. As per tele, 12 beats of VTach overnight. Cardiology is consulted - Objective MAR Reviewed: Yes Vital Signs & Weight: Vital Signs (12 hours) Temp Pulse Resp BP Pulse Ox 09/11/20 04:00 97.6 F 82 16 110/55 L 92 L 09/11/20 00:08 98 09/11/20 00:00 80 09/10/20 19:12 97.3 F L 77 18 103/63 100 09/10/20 18:56 98 09/10/20 18:55 98 Weight Admit Weight 48.2 kg Weight 41.504 kg Most Recent Monitor Data Heart Rate from ECG 117 NIBP 158/89 NIBP BP-Mean 112 Respiration from ECG 20 SpO2 96 I&O: 09/09/20 09/10/20 09/11/20 06:59 06:59 06:59 Intake Total 700 1070 Balance 700 1070 Result Diagrams: 09/10/20 04:36 09/11/20 04:14 Phys Exam - Physical Examination Constitutional: NAD cachectic Neck: supple Respiratory: no wheezing decreased breath sounds b/l lobes Cardiovascular: RRR, no significant murmur Gastrointestinal: soft, non-tender, positive bowel sounds Musculoskeletal: no edema, pulses present Neurological: non-focal, moves all 4 limbs Dx/Plan - Plan Plan: Acute Hypoxic Respiratory Failure 2/2 pulmonary edema secondary to acute NSTEMI Trop 419 Cath showed occluded LCx -> medical management - cardiology consulted, appreciate recs - Patient was started on Lopressor BID 09/06 d/t 40 beats vtach, 09/07 this was switched to coreg 12.5BID - continue medical management, continue IV lasix - pulm consulted, appreciate recs - patient intubated 09/05, extubated 09/06, moved to tele floor, continue medical management - continue tele monitoring -09/10 patient SOB and switched to NC. CXR showed L pleural effusion. Follow up procal. -09/11 on 2L NC. CXR showed improvement. Procal neg HFrEF - Cath showed 30% EF - Echo 09/06: EF 35-5-% - Diuresis with IV lasix - Continue beta carola, aceI, statin COPD - Duonebs ANAYELI Q6H, PRN Q4H - Will hold off on steroid and abx at this time Polycythemia - Continue to monitor HTN -Hold home medications at this time Transaminitis, improving - daphne 2/2 congestion GI ppx: pepcid Code: full PCP: Monse SHEPARD DVT ppx: lovenox Diet: Ensure, chopped HH Dispo: tele floor, expected LOS > 48 hrs. Pending cardiology recs and CM for inpatient rehab Addendum - Attending - Attending Attestation Date/Time: 09/11/20 0148 I personally evaluated the patient and discussed the management with Dr. Lott. I agree with the History, Examination, Assessment and Plan documented above with any addition or exceptions noted below.
[2020-09-11] MEDS: Aspirin 81 mg Enteric Coated Tablet PO SCH (08:07)
[2020-09-11] MEDS: Enoxaparin Sodium 30 MG/0.3 ML SYRINGE SC SCH (08:07)
[2020-09-11] MEDS: Clopidogrel Bisulfate 75 MG TAB PO SCH (08:07)
[2020-09-11] MEDS: Folic Acid 1 MG TAB PO SCH (08:08)
[2020-09-11] MEDS: Multivit, Therapeutic 1 TAB PO SCH (08:08)
[2020-09-11] MEDS: Polyethylene Glycol 3350 17 GM Packet PO SCH ×2 (08:08→22:11)
[2020-09-11] MEDS: Carvedilol 6.25 MG TAB PO SCH ×2 (08:08→16:30)
[2020-09-11] MEDS: Lisinopril 10 MG TAB PO SCH ×2 (08:08→22:11)
[2020-09-11] MEDS: Cyanocobalamin (Vitamin B-12) 1,000 MCG TAB PO SCH (08:08)
--- NOTE | 2020-09-11 08:11 | RAD ---
EXAM: CHEST ONE VIEW HISTORY: Left pleural effusion. COMPARISON: 09/10/2020 FINDINGS: Cardiac silhouette and pulmonary vasculature are stable in appearance. There is mild volume loss of t he left hemithorax compared to the right which is similar to the prior exam. There was a greater degree of opacity within the left upper lung zone on the prior study which does appear improved. Righ t lung is clear and expanded. No other interval change. IMPRESSION: Mild generalized volume loss left hemithorax compared to the right. This is similar to study of 2020 but does represent an interval change compared to study on 09/05/2020. No consolidation or definite pleural effusion is seen.
[2020-09-11] MEDS ORDERED: Furosemide 20 MG/2 ML VIAL SLOW IVP SCH (09:00)
--- NOTE | 2020-09-11 10:05 | PRG ---
DATE OF SERVICE: 09/11/2020 SUBJECTIVE: Ms. Castro feels weak and fatigued. She is short of breath with exertion. OBJECTIVE: VITAL SIGNS: Blood pressure 109/71, pulse 90. LUNGS: Some decreased breath sounds at the left base. No wheezing. CARDIAC: Normal S1, normal S2. There is no new murmur, rub, or gallop. ABDOMEN: Soft, nontender. EXTREMITIES: No edema. ASSESSMENT: 1. Status post extensive posterior myocardial infarction, nonsustained ventricular tachycardia, 46 beats earlier during the hospitalization, 12 beats yesterday. 2. Ejection fraction was 30% to 35% on one echo and 35% to 40% on another echo. PLAN: 1. We will try to get LifeVest. She is at significant risk of ventricular arrhythmias. 2. Continue current medical regimen. 3. Arrangements were being made to try to send her to rehab. Job ID: [id number]
--- NOTE | 2020-09-11 16:31 | PDOC.PALCO ---
Palliative Care Consult - Consult Details Requesting Physician: Dr Lott Reason for Consult: goals of care, assistance with communication prognosis/disease Family Members Present: none - Pertinent HPI 65 yo AAF presented to hospital for sudden onset SOB and chest pain. Was in respiratory distress in ED and was given IV lasix and place on BiPap. Failed BiPap and emergently intubated and brought to [facility] [employer] [facility]. Appeared that posterior AR was over 24 hours in evolution and decision made to treat medically. EF was 30%. Was extubated after [employer] [facility] recovery. Is in monitored bed with SR with frequent PVC'- Life Vest is on. Has been started on low dose guideline directed medical therapy-low dose BB and ACEI- limited by borderline low BPs-Plans are to DC to Rehab with Life Vest on - Pertinent PMH HFrEF EF 30%, COPD, hypertension, pulmonary edema, CAD, Posterior AMI, PTSD, Anxiety - Social History Smoking Status: Current every day smoker Smoking: greater than 1 pack/day Alcohol Use: none Drug Use History: marijuana Living Situation: - Medications MAR Reviewed: Yes - Allergies Allergies/Adverse Reactions: Allergies Allergy/AdvReac Type Severity Reaction Status Date / Time No Known Allergies Allergy Verified 05/02/20 06:29 - Subjective Awake, conversive, pleasant in NAD. Asks appropriate questions and receptive to teaching - ROS Constitutional: alert, loss appetite, weakness ENT: difficulty swallowing (secondary to recent intubation) Respiratory: productive cough, shortness of breath with extertion Cardiology: palpitations - Objective Vital Signs: Vital Signs - Most Recent Temp Pulse Resp BP Pulse Ox 98.4 F 88 16 94/60 95 09/11/20 11:52 09/11/20 11:52 09/11/20 08:12 09/11/20 11:52 09/11/20 11:52 - Physical Exam Constitutional: NAD, cachectic HEENT: EOMI, moist MMs (Poor dentition), sclera anicteric, poor dentition Respiratory: no rhonchi, no wheezing, diminished lung sound Cardiovascular: JVD Deviation from normal: 14 cm with + HJR Gastrointestinal: continent, non-tender, no distention Genitourinary: continent Musculoskeletal: no cyanosis, no clubbing, muscle wasting Neurology: moves all 4 limbs, no focal deficits, normal speech Skin: cap refill <2 seconds, fragile Psychiatric: A&O x 3, normal affect - Problem List (1) Ventricular arrhythmia Code(s): I49.9 - CARDIAC ARRHYTHMIA, UNSPECIFIED Current Visit: Yes Status: Acute (2) Posterior AMI, episd Code(s): I21.29 - STEMI INVOLVING OTH SITES Current Visit: Yes Status: Acute (3) Left ventricular systolic dysfunction Code(s): I51.9 - HEART DISEASE, UNSPECIFIED Current Visit: Yes Status: Acute (4) Tobacco abuse Code(s): Z72.0 - TOBACCO USE Current Visit: Yes Status: Acute - Plan/Recommendations Plan: Introduced Palliative Care to patient- Discussed physiology and pathway of HFrEF. Explained GDMT medicines to help improve heart function- Discussed possibility of AICD placement if continues with ventricular arrythmias and low EF. Has no Advanced Directives but wants full resuscitation both in and out of hospital. Wants daughter, Jana , for MPOA. Will arrange to complete tomorrow at visitation 90 minutes spent on this encounter with >50% of the time in counseling and coordination of care. Thank you for this very appropriate consult.
[2020-09-11] MEDS: Atorvastatin Calcium 40 MG TAB PO SCH (22:11)
[2020-09-12 04:52] LABS: ALT (SGPT) 23 U/L (8-55); AST (SGOT) 26 U/L (5-34); Alkaline Phosphatase 78 U/L (40-110); Anion Gap 14 mmol/L (10-20); BUN (Urea Nitrogen) 11 mg/dL (9.8-20.1); Bilirubin, Total 0.7 mg/dL (0.2-1.2); Calc. Creatinine Clearance 58 mL/min (70-130); Carbon Dioxide 28 mmol/L (23-31); Chloride 102 mmol/L (98-107); Globulin 2.9 g/dL (2.4-3.5); Glucose 96 mg/dL (80-115); Potassium 3.7 mmol/L (3.5-5.1); Protein, Total 5.9 g/dL (6.0-8.3); Sodium 140 mmol/L (136-145)
[2020-09-12 05:21] LABS: #Eosinphils 0.3 thou/uL (0.0-0.7); #Lymphocytes 2.4 thou/uL (1.20-3.40); #Neutrophils 6.3 thou/uL (1.40-6.50); %Basophils 0.7 % (0.0-1.0); %Lymphocytes 22.1 % (21.0-51.0); %Neutrophils 64.2 % (42.0-75.0); Hemoglobin 15.1 g/dL (12.0-16.0); Mean Corpuscular HGB CONC 33.8 g/dL (32.0-36.0); Mean Corpuscular Hemoglobin 35.4 pg (27.0-31.0); Mean Platelet Volume 8.8 fL (7.4-10.4); Platelet Count 212 thou/uL (130-400); RBC Distribution Width 12.8 % (11.5-14.5); Red Blood Cell (RBC) Count 4.26 mill/uL (4.20-5.40); White Blood Cell (WBC) Count 9.2 thou/uL (4.8-10.8)
--- NOTE | 2020-09-12 07:12 | PDOC.FM ---
- Subjective Subjective: Patient sitting up in bed this AM drinking coffee. States she is doing better, improved SOB. On RA during exam. Goal 88-92% SpO2. Pending cardiology recs - Objective MAR Reviewed: Yes Vital Signs & Weight: Vital Signs (12 hours) Temp Pulse Resp BP Pulse Ox 09/12/20 04:10 98.4 F 78 18 95 09/12/20 00:27 77 107/63 09/11/20 23:57 96 09/11/20 23:56 84/53 L 09/11/20 21:30 98.9 F 78 18 93/58 L 94 L 09/11/20 19:31 96 09/11/20 19:30 96 Weight Admit Weight 48.2 kg Weight 40.823 kg Most Recent Monitor Data Heart Rate from ECG 117 NIBP 158/89 NIBP BP-Mean 112 Respiration from ECG 20 SpO2 96 Result Diagrams: 09/12/20 04:08 09/12/20 04:08 Phys Exam - Physical Examination Constitutional: NAD (cachectic female) HEENT: moist MMs Neck: full ROM Respiratory: no wheezing, no rales, clear to auscultation bilateral Cardiovascular: RRR, no significant murmur Gastrointestinal: soft, non-tender Musculoskeletal: no edema, pulses present Neurological: normal sensation, moves all 4 limbs Psychiatric: A&O x 3 Skin: normal turgor Dx/Plan - Plan Plan: Acute Hypoxic Respiratory Failure 2/2 pulmonary edema secondary to acute NSTEMI Trop 419 Cath showed occluded LCx -> medical management - cardiology consulted, appreciate recs - Patient was started on Lopressor BID 09/06 d/t 40 beats vtach, 09/07 this was switched to coreg 12.5BID - continue medical management, continue IV lasix - pulm consulted, appreciate recs - patient intubated 09/05, extubated 09/06, moved to tele floor, continue medical management - continue tele monitoring -09/10 patient SOB and switched to NC. CXR showed L pleural effusion. Follow up procal. -09/11 on 2L NC. CXR showed improvement. Procal neg -09/12 on RA. Improvement clinically, no SOB HFrEF - Cath showed 30% EF - Echo 09/06: EF 35-50% - Diuresis with IV lasix as needed - Continue beta carola, aceI, statin -Cardiology consulted, trying to get Life Vest COPD - Duonebs ANAYELI Q6H, PRN Q4H - Will hold off on steroid and abx at this time Polycythemia - Continue to monitor HTN -Hold home medications at this time Transaminitis, improving - mainorley 2/2 congestion GI ppx: pepcid Code: full PCP: Monse SHEPARD DVT ppx: lovenox Diet: Ensure, chopped HH Dispo: tele floor, expected LOS > 48 hrs. Pending cardiology recs and CM for inpatient rehab Addendum - Attending - Attending Attestation Date/Time: 09/12/20 1120 I personally evaluated the patient and discussed the management with Dr. Lott. I agree with the History, Examination, Assessment and Plan documented above with any addition or exceptions noted below.
[2020-09-12 07:29] LABS: Phosphorus 2.8 mg/dL (2.3-4.7)
[2020-09-12] MEDS: Carvedilol 6.25 MG TAB PO SCH ×2 (09:40→16:53)
[2020-09-12] MEDS: Enoxaparin Sodium 30 MG/0.3 ML SYRINGE SC SCH (09:41)
[2020-09-12] MEDS: Lisinopril 10 MG TAB PO SCH (09:41)
[2020-09-12] MEDS: Polyethylene Glycol 3350 17 GM Packet PO SCH ×2 (09:41→21:44)
[2020-09-12] MEDS: Aspirin 81 mg Enteric Coated Tablet PO SCH (09:42)
[2020-09-12] MEDS: Multivit, Therapeutic 1 TAB PO SCH (09:42)
[2020-09-12] MEDS: Cyanocobalamin (Vitamin B-12) 1,000 MCG TAB PO SCH (09:42)
[2020-09-12] MEDS: Clopidogrel Bisulfate 75 MG TAB PO SCH (09:42)
[2020-09-12] MEDS: Folic Acid 1 MG TAB PO SCH (09:42)
--- NOTE | 2020-09-12 12:46 | PDOC.PALPN ---
Palliative Progress Note - Subjective Mrs Castro is better today- has ambulated to bathroom with walker 3 times but this activity causes VALLEJO and takes several minutes to recover from. Is on guideline directed medical therapy for HFrEF-Coreg 6.25 mg po BID and lisinopril 5 mg po BID. Is tolerating soft diet. Prior to this hospitalization, she was living at home with and daughter- is supportive and cooks and cleans for her- She could do ADLs and light activity. She wishes to return to home environment- Daughter, Jana, has consented for transfer to [facility]hab [facility] for strengthening and reconditioning. MPOA, AD and OOH directives have been updated and copies placed in chart. - Objective Vital Signs: Vital Signs - Most Recent Temp Pulse Resp BP Pulse Ox 98.3 F 72 22 H 109/67 97 09/12/20 11:41 09/12/20 11:41 09/12/20 11:41 09/12/20 11:41 09/12/20 11:41 - Physical Exam Constitutional: NAD, cachectic HEENT: moist MMs, sclera anicteric, poor dentition Respiratory: clear to auscultation bilateral, no wheezing, unlabored breathing Deviation from normal: Coarse rhonchi- clear with cough, decreased bases bilaterally Cardiovascular: RRR Deviation from normal: JVD 12 cm with + HJR, Life Vest on, heart sounds very distant Gastrointestinal: continent, soft, non-tender, no distention, positive bowel sounds Genitourinary: continent Musculoskeletal: no cyanosis, no edema, pulses present, muscle wasting Neurology: moves all 4 limbs, no focal deficits, normal sensation Skin: cap refill <2 seconds, no lesions, no rash, fragile, friable Psychiatric: A&O x 3, normal affect, normal mood - Assessment (1) Ventricular arrhythmia Code(s): I49.9 - CARDIAC ARRHYTHMIA, UNSPECIFIED Current Visit: Yes Status: Acute Assessment: In NSR today, rare PVCs (2) Posterior AMI, episd Code(s): I21.29 - STEMI INVOLVING OTH SITES Current Visit: Yes Status: Acute Assessment: Good perfusion , BP 109/67, on BB and ACEI (3) Left ventricular systolic dysfunction Code(s): I51.9 - HEART DISEASE, UNSPECIFIED Current Visit: Yes Status: Acute Assessment: Started in GDMT for HFrEF, Life Vest on (4) Tobacco abuse Code(s): Z72.0 - TOBACCO USE Current Visit: Yes Status: Acute Assessment: States she will try to quit when she gets home and has Chantix - Plan Plan: Communication of Prognosis and Disease Process Guideline directed Medical therapy (GDMT) for HFrEF discussed in detail and need for compliance Transfer to [facility]hab for conditioning and strengthening- 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 - ROS Constitutional: alert, weakness Respiratory: productive cough, shortness of breath with extertion Neurological: weakness
--- NOTE | 2020-09-12 13:20 | PRG ---
DATE OF SERVICE: 09/12/2020 SUBJECTIVE: Ms. Castro feels weak and fatigued. She is really not getting up much. OBJECTIVE: VITAL SIGNS: Blood pressure was in the 90s systolic. Earlier, the carvedilol and lisinopril dose had to be reduced. LUNGS: Clear. CARDIAC: Normal S1, normal S2. ABDOMEN: Soft and nontender. LABORATORY DATA: I reviewed the recent echocardiogram. I believe the ejection fraction to be 35%. The echocardiogram done on 09/06/2020 when I reviewed that. ASSESSMENT: 1. Status post myocardial infarction. 2. Ventricular tachycardia 46 beats. 3. Ejection fraction 35%. PLAN: 1. Have to reduce carvedilol and lisinopril. 2. Attempting to obtain a LifeVest. Job ID: [id number]
[2020-09-12 13:34] VITALS: BMI 15.9
[2020-09-12] MEDS ORDERED: Lisinopril 10 MG TAB PO SCH (21:00)
[2020-09-12] MEDS: Lisinopril 5 MG TAB PO SCH (21:44)
[2020-09-12] MEDS: Atorvastatin Calcium 40 MG TAB PO SCH (21:44)
[2020-09-13 04:38] LABS: ALT (SGPT) 20 U/L (8-55); AST (SGOT) 20 U/L (5-34); Alkaline Phosphatase 77 U/L (40-110); Anion Gap 15 mmol/L (10-20); BUN (Urea Nitrogen) 8 mg/dL (9.8-20.1); Bilirubin, Total 0.8 mg/dL (0.2-1.2); Calc. Creatinine Clearance 58 mL/min (70-130); Carbon Dioxide 26 mmol/L (23-31); Chloride 103 mmol/L (98-107); Globulin 2.9 g/dL (2.4-3.5); Glucose 96 mg/dL (80-115); Potassium 3.4 mmol/L (3.5-5.1); Protein, Total 5.9 g/dL (6.0-8.3); Sodium 141 mmol/L (136-145)
--- NOTE | 2020-09-13 06:28 | PDOC.FM ---
- Subjective Subjective: Patient is doing well this morning on RA. Looks better. Still weak, but improved. Working with IS 10x an hour. Encouraged her to eat her meals and drink Ensure as able and to get up out of bed. She had life vest placed yesterday. - Objective MAR Reviewed: Yes Vital Signs & Weight: Vital Signs (12 hours) Temp Pulse Resp BP Pulse Ox 09/13/20 03:22 98.0 F 82 16 93/53 L 92 L 09/13/20 01:03 71 16 93 L 09/12/20 23:40 63 95/51 L 90 L 09/12/20 21:44 84 09/12/20 20:00 97.8 F 84 16 106/60 99 09/12/20 18:32 67 16 94 L Weight Admit Weight 48.2 kg Weight 42.093 kg Most Recent Monitor Data Heart Rate from ECG 117 NIBP 158/89 NIBP BP-Mean 112 Respiration from ECG 20 SpO2 96 I&O: 09/11/20 09/12/20 09/13/20 06:59 06:59 06:59 Intake Total 600 Output Total 1700 Balance -1100 Result Diagrams: 09/12/20 04:08 09/13/20 04:03 Phys Exam - Physical Examination Constitutional: NAD cachectic, on RA Neck: no JVD, supple Respiratory: no wheezing Cardiovascular: RRR, no significant murmur Gastrointestinal: soft, non-tender Musculoskeletal: no edema Neurological: moves all 4 limbs Psychiatric: normal affect, A&O x 3 Dx/Plan - Plan Plan: Acute Hypoxic Respiratory Failure 2/2 pulmonary edema secondary to acute NSTEMI Trop 419 Cath showed occluded LCx -> medical management - cardiology consulted, appreciate recs - Patient was started on Lopressor BID 09/06 d/t 40 beats vtach, 09/07 this was switched to coreg 12.5BID - continue medical management, continue IV lasix - pulm consulted, appreciate recs - patient intubated 09/05, extubated 09/06, moved to tele floor, continue medical management - continue tele monitoring -09/10 patient SOB and switched to NC. CXR showed L pleural effusion. Follow up procal. -09/11 on 2L NC. CXR showed improvement. Procal neg -09/12 on RA. Improvement clinically, no SOB -09/13 on RA HFrEF - Cath showed 30% EF - Echo 09/06: EF 35-50% - Diuresis with IV lasix as needed - Continue beta carola, aceI, statin: patient's Lisinopril and Coreg decreased as per cardiology recs -Cardiology consulted, patient got life vest 09/12 COPD - Duonebs ANAYELI Q6H, PRN Q4H - Will hold off on steroid and abx at this time Polycythemia - Continue to monitor HTN -Hold home medications at this time Transaminitis, improving - mainorley 2/2 congestion GI ppx: pepcid Code: full PCP: Monse SHEPARD DVT ppx: lovenox Diet: Ensure, chopped HH Dispo: tele floor, expected LOS > 48 hrs. Pending cardiology recs and CM for inpatient rehab. Anticipate discharge today Addendum - Attending - Attending Attestation Date/Time: 09/13/20 [id number] I personally evaluated the patient and discussed the management with Dr. Lott. I agree with the History, Examination, Assessment and Plan documented above with any addition or exceptions noted below. Patient resting comfortably.She has obtained her lifevest. We are waiting on approval to inpatient rehab where she can hopefully transition soon. She will co ntinue on medical mgmt for her heart disease.
[2020-09-13] MEDS ORDERED: Potassium Chloride 20 MEQ in Premix Bag 1 BAG IVPB SCH ×2 (06:30→06:45)
[2020-09-13] MEDS: Aspirin 81 mg Enteric Coated Tablet PO SCH (08:33)
[2020-09-13] MEDS: Lisinopril 5 MG TAB PO SCH ×2 (08:33→22:46)
[2020-09-13] MEDS: Enoxaparin Sodium 30 MG/0.3 ML SYRINGE SC SCH (08:33)
[2020-09-13] MEDS: Clopidogrel Bisulfate 75 MG TAB PO SCH (08:33)
[2020-09-13] MEDS: Multivit, Therapeutic 1 TAB PO SCH (08:33)
[2020-09-13] MEDS: Cyanocobalamin (Vitamin B-12) 1,000 MCG TAB PO SCH (08:33)
[2020-09-13] MEDS: Folic Acid 1 MG TAB PO SCH (08:33)
[2020-09-13] MEDS: Carvedilol 6.25 MG TAB PO SCH ×2 (08:34→17:38)
[2020-09-13] MEDS: Polyethylene Glycol 3350 17 GM Packet PO SCH ×2 (08:34→22:46)
--- NOTE | 2020-09-13 12:04 | PDOC.FMACP ---
Advance Care Planning - Problem (1) Heart failure with reduced ejection fraction Status: Acute Code(s): I50.20 - UNSPECIFIED SYSTOLIC (CONGESTIVE) HEART FAILURE (2) Palliative care encounter Status: Acute Code(s): Z51.5 - ENCOUNTER FOR PALLIATIVE CARE (3) Respiratory failure Status: Acute Code(s): J96.90 - RESPIRATORY FAILURE, UNSP, UNSP W HYPOXIA OR HYPERCAPNIA (4) COPD (chronic obstructive pulmonary disease) Status: Chronic Qualifiers: COPD type: COPD with acute lower respiratory infection Qualified Code(s): J44.0 - Chronic obstructive pulmonary disease with (acute) lower respiratory infection (5) Hyperlipidemia Status: Chronic Code(s): E78.5 - HYPERLIPIDEMIA, UNSPECIFIED Qualifiers: Hyperlipidemia type: unspecified Qualified Code(s): E78.5 - Hyperlipidemia, unspecified (6) Hypertension Status: Chronic Code(s): I10 - ESSENTIAL (PRIMARY) HYPERTENSION Qualifiers: Hypertension type: essential hypertension Qualified Code(s): I10 - Essential (primary) hypertension - Note Participants: patient, family, palliative care Summary: Advanced Care Planning was discussed. The diagnosis, prognosis and goals of ca re were discussed. Appropriate forms and documentation to accomplish the goals of care were discussed. All questions were answered. *MPOA completed *Directives addressed *Continue all aggressive measures and treatments *Lifevest in place *[facility] *Will follow up with Primary and Cardiology Palliative care will sign off as Directives addressed, education in relation to disease progression, and Goals identified as stated above. If we can assist in the future please reconsult our team. Thank you for this very appropriate consult. Time Spent (mins): 20
[2020-09-13] MEDS ORDERED: Potassium Chloride 20 MEQ TAB PO SCH (14:15)
[2020-09-13] MEDS: Atorvastatin Calcium 40 MG TAB PO SCH (22:46)
[2020-09-14 04:45] LABS: #Basophils 0.1 thou/uL (0.0-0.2); #Eosinphils 0.2 thou/uL (0.0-0.7); #Lymphocytes 1.9 thou/uL (1.20-3.40); #Monocytes 0.9 thou/uL (0.11-0.59); #Neutrophils 5.8 thou/uL (1.40-6.50); %Eosinophils 2.4 % (0.0-10.0); %Lymphocytes 21.6 % (21.0-51.0); %Monocytes 10.3 % (0.0-10.0); %Neutrophils 64.7 % (42.0-75.0); Mean Corpuscular HGB CONC 33.1 g/dL (32.0-36.0); Mean Corpuscular Hemoglobin 34.3 pg (27.0-31.0); Mean Platelet Volume 8.5 fL (7.4-10.4); Platelet Count 285 thou/uL (130-400); RBC Distribution Width 12.5 % (11.5-14.5); Red Blood Cell (RBC) Count 4.08 mill/uL (4.20-5.40); White Blood Cell (WBC) Count 8.9 thou/uL (4.8-10.8)
[2020-09-14 05:06] LABS: ALT (SGPT) 18 U/L (8-55); AST (SGOT) 19 U/L (5-34); Albumin 3.2 g/dL (3.4-4.8); Alkaline Phosphatase 82 U/L (40-110); Anion Gap 13 mmol/L (10-20); BUN (Urea Nitrogen) 10 mg/dL (9.8-20.1); Bilirubin, Total 0.7 mg/dL (0.2-1.2); Calc. Creatinine Clearance 58 mL/min (70-130); Calcium 10.3 mg/dL (7.8-10.44); Carbon Dioxide 26 mmol/L (23-31); Chloride 106 mmol/L (98-107); Globulin 2.9 g/dL (2.4-3.5); Glucose 101 mg/dL (80-115); Potassium 3.9 mmol/L (3.5-5.1); Protein, Total 6.1 g/dL (6.0-8.3); Sodium 141 mmol/L (136-145)
--- NOTE | 2020-09-14 06:50 | PDOC.FM ---
- Subjective Subjective: Patient resting comfortably in bed this AM on RA. No acute complaints. - Objective MAR Reviewed: Yes Vital Signs & Weight: Vital Signs (12 hours) Temp Pulse Resp BP Pulse Ox 09/14/20 03:44 98.6 F 79 15 98/61 92 L 09/13/20 22:46 80 09/13/20 20:37 98.3 F 80 14 81/59 L 98 Weight Admit Weight 48.2 kg Weight 41.957 kg Most Recent Monitor Data Heart Rate from ECG 117 NIBP 158/89 NIBP BP-Mean 112 Respiration from ECG 20 SpO2 96 I&O: 09/12/20 09/13/20 09/14/20 06:59 06:59 06:59 Intake Total 720 640 Output Total 1700 400 Balance -980 240 Result Diagrams: 09/14/20 04:33 09/14/20 04:33 Phys Exam - Physical Examination Constitutional: NAD HEENT: moist MMs Respiratory: no wheezing, no rales, clear to auscultation bilateral Cardiovascular: RRR, no significant murmur Gastrointestinal: soft, non-tender, positive bowel sounds Musculoskeletal: no edema, pulses present Neurological: normal sensation, moves all 4 limbs Psychiatric: normal affect, A&O x 3 Skin: normal turgor Dx/Plan - Plan Plan: Acute Hypoxic Respiratory Failure 2/2 pulmonary edema secondary to acute NSTEMI Trop 419 Cath showed occluded LCx -> medical management - cardiology consulted, appreciate recs - Patient was started on Lopressor BID 09/06 d/t 40 beats vtach, 09/07 this was switched to coreg 12.5BID - continue medical management, continue IV lasix - pulm consulted, appreciate recs - patient intubated 09/05, extubated 09/06, moved to tele floor, continue medical management - continue tele monitoring -09/10 patient SOB and switched to NC. CXR showed L pleural effusion. Follow up procal. -09/11 on 2L NC. CXR showed improvement. Procal neg -09/12 on RA. Improvement clinically, no SOB -09/13, 16 on RA HFrEF - Cath showed 30% EF - Echo 09/06: EF 35-50% - Diuresis with IV lasix as needed - Continue beta carola, aceI, statin: patient's Lisinopril and Coreg decreased as per cardiology recs -Cardiology consulted, patient got life vest 1/14 COPD - Duonebs ANAYELI Q6H, PRN Q4H - Will hold off on steroid and abx at this time Polycythemia - Continue to monitor HTN -Hold home medications at this time Transaminitis, improving - mainorley 2/2 congestion GI ppx: pepcid Code: full PCP: Monse SHEPARD DVT ppx: lovenox Diet: Ensure, chopped HH Dispo: tele floor, expected LOS > 48 hrs. Anticipate discharge today to IP rehab, [facility] Addendum - Attending - Attending Attestation Date/Time: 09/14/20 200 I personally evaluated the patient and discussed the management with Dr. Lott. I agree with the History, Examination, Assessment and Plan documented above with any addition or exceptions noted below. Patient awaiting bed at inpatient rehab. Will d/c when available.
[2020-09-14 06:56] VITALS: TEMP 98.1
[2020-09-14] MEDS: Cyanocobalamin (Vitamin B-12) 1,000 MCG TAB PO SCH (08:05)
[2020-09-14] MEDS: Carvedilol 6.25 MG TAB PO SCH (08:05)
[2020-09-14] MEDS: Clopidogrel Bisulfate 75 MG TAB PO SCH (08:05)
[2020-09-14] MEDS: Folic Acid 1 MG TAB PO SCH (08:05)
[2020-09-14] MEDS: Aspirin 81 mg Enteric Coated Tablet PO SCH (08:05)
[2020-09-14] MEDS: Lisinopril 5 MG TAB PO SCH (08:06)
[2020-09-14] MEDS: Enoxaparin Sodium 30 MG/0.3 ML SYRINGE SC SCH (08:06)
[2020-09-14] MEDS: Multivit, Therapeutic 1 TAB PO SCH (08:06)
[2020-09-14] MEDS: Polyethylene Glycol 3350 17 GM Packet PO SCH (08:07)
[2020-09-14 11:45] VITALS: BP 91/60
--- NOTE | 2020-09-16 14:10 | DIS ---
DATE OF ADMISSION: 09/05/2020 DATE OF DISCHARGE: 09/14/2020 RESIDENT: Ashtyn Lott MD, PGY-1. ADMITTING ATTENDING: Roger Harrison MD DISCHARGE ATTENDING: Danny Ch MD CONSULTS: 1. Cardiology, Dr. Roque. 2. Pulmonology, Dr. Gibbs. 3. PT, OT, Speech. PROCEDURES: Chest x-ray on 09/05/2020, which showed interstitial infiltrates involving most on the right lung and emphysema. Chest and thorax CT on 09/05/2020, which showed no evidence of pulmonary artery embolism, chronic changes in lung parenchyma with patchy opacities as described above. Areas of scarring and atelectasis are favored; however, the possibility of a right lower lobe infiltrate cannot be excluded Echocardiogram on 09/05/2020, showed dilated left ventricle. Normal left ventricular wall thickness. Ejection fraction at 30% to 35%. Grade 1/3 diastolic dysfunction. Inferior akinesis and anterior hypokinesis. On 09/05/2020, the patient underwent heart catheterization and found to have an occluded left circumflex system. A plan was for balloon angioplasty, however, it was noted that the blockage already had collaterals from the LAD distally. The decision was made to abort the procedure and just treat medically. Repeat echo on 09/06/2020, which showed EF at 30% to 40% with grade 1/3 diastolic dysfunction, lateral hypokinesis, moderately dilated left atrium, [id number] mitral regurgitation. Aortic valve sclerosis, but opens well. Moderate tricuspid regurgitation. Right ventricular systolic pressure at 28. Improved right-sided pressures in the level of mitral regurgitation and improved ejection fraction compared to previous. Chest x-ray on 09/10/2020, showed left pleural effusion with adjacent atelectasis versus infiltrate. Chest x-ray on 09/11/2020, which showed similar to previous with no consolidation or definite pleural effusion seen. PRIMARY DIAGNOSIS: Acute hypoxic respiratory failure secondary to pulmonary edema, secondary to acute non-ST segment elevation myocardial infarction. SECONDARY DIAGNOSES: 1. Heart failure with reduced ejection fraction. 2. Chronic obstructive pulmonary disease. 3. Polycythemia. 4. Hypertension. 5. Transaminitis. DISCHARGE MEDICATIONS: 1. Coreg 6.25 mg p.o. b.i.d. 2. DuoNeb 3 mL nebulizer q.6 hours as needed. 3. Aspirin 81 mg p.o. daily. 4. Melatonin 3 mg p.o. at bedtime p.r.n. 5. Clopidogrel 75 mg p.o. daily. 6. Protonix 40 mg p.o. daily. 7. Tessalon 100 mg p.o. t.i.d. as needed. 8. Lisinopril 5 mg p.o. b.i.d. 9. Folic acid 1 mg p.o. daily. 10. Ventolin inhaler two puffs inhalation every 6 hours as needed. 11. Sertraline 100 mg p.o. daily. 12. Symbicort one puff inhaled b.i.d. p.r.n. 13. Nitrostat 0.4 mg sublingual every 5 minutes p.r.n. 14. Atorvastatin 40 mg p.o. at bedtime. 15. Vitamin B12, 1000 mcg p.o. daily. 16. Multivitamin one tablet p.o. daily. 17. MiraLAX 17 g p.o. b.i.d. 18. Chantix 0.5 to 1 mg p.o. as directed. Discontinued medications; 1. Aspirin. 2. Metoprolol 50 mg p.o. daily. 3. Protonix 40 mg p.o. b.i.d. 4. Amlodipine 5 mg p.o. daily. 5. Clopidogrel 75 mg p.o. daily. 6. Lisinopril 20 mg p.o. b.i.d. HOSPITAL COURSE: The patient is a 65-year-old female with past medical history of COPD, CHF, coronary artery disease, hypertension, who presented to the ER secondary to shortness of breath. History was limited as the patient was on BiPAP and had difficulty completing sentences. The patient reports chest pain, shortness of breath over the past 4 days that is substernal in nature and nonradiating. Pain is accompanied by nausea, vomiting, and episodes of diaphoresis. The patient also reported increased cough over time. Denies fever, chills, or sick contacts. In the ER, the patient received Lovenox 1 mg/kg 1 L bolus, 20 mg of Lasix, 500 of azithromycin, 1 g of Rocephin, 2 g of magnesium sulfate, 125 mg of Solu-Medrol, 1-inch nitroglycerin paste, 325 of aspirin, and was placed on BiPAP secondary to respiratory distress. The patient failed BiPAP and had been intubated emergently in the ED and the patient was taken to get a heart cath as per Cardiology. See above for details. The patient was extubated on 09/06/2020. The patient also had episodes of nonsustained ventricular tachycardia, in which Cardiology was aware and was treated with IV Lopressor. Patient's home metoprolol was stopped. The patient was treated medically for her NSTEMI and the patient obtained a LifeVest. The patient to work with physical therapy and OT to regain her strength. The patient was weaned off nasal cannula and was saturating well on room air. The patient is weak at baseline as she is likely malnourished. DISPOSITION: Stable. DISCHARGE INSTRUCTIONS: 1. Location: [facility]. 2. Diet: Heart healthy diet. 3. Activity: Activity as tolerated. 4. Followup: Follow up with Dr. Shea, resident buyer and PCP in 10 days for hospital followup. Follow up with Dr. Harrison, Cardiology in 3 to 4 weeks and continue cardiac rehab and other therapies at [facility]. Job ID: [id number] MTDD
== END 2020-09-14 15:00 | DRG 250 ==
LOC: ERS 11:49 → IMCU/EMU 17:47 → SDC/OP 18:03 → IMCU/EMU 18:22 → SDC/OP 20:02 → 2NO 09-06 18:02
PROVIDERS: ADMIT Student in an Organized Health Care Education/Training Program; ATTEND Hospitalist
PROC: 02703ZZ Dilation of Coronary Artery, One Artery, Percutaneous Approach (ICD-10-PCS; principal; 2020-09-05)
PROC: B2111ZZ Fluoroscopy of Multiple Coronary Arteries using Low Osmolar Contrast (ICD-10-PCS; 2020-09-05)
PROC: 0BH17EZ Insertion of Endotracheal Airway into Trachea, Via Natural or Artificial Opening (ICD-10-PCS; 2020-09-05)
PROC: 5A1935Z Respiratory Ventilation, Less than 24 Consecutive Hours (ICD-10-PCS; 2020-09-05)
PROC: 5A09357 Assistance with Respiratory Ventilation, Less than 24 Consecutive Hours, Continuous Positive Airway Pressure (ICD-10-PCS; 2020-09-05)
PROC: 0D9670Z Drainage of Stomach with Drainage Device, Via Natural or Artificial Opening (ICD-10-PCS; 2020-09-05)
PROC: 06HY33Z Insertion of Infusion Device into Lower Vein, Percutaneous Approach (ICD-10-PCS; 2020-09-05)
DX: I21.29 ST elevation (STEMI) myocardial infarction involving other sites (principal); J96.01 Acute respiratory failure with hypoxia; I50.23 Acute on chronic systolic (congestive) heart failure; R57.0 Cardiogenic shock; E46 Unspecified protein-calorie malnutrition; Z68.1 Body mass index [BMI] 19.9 or less, adult; I51.81 Takotsubo syndrome; R64 Cachexia; I47.2 Ventricular tachycardia; Z51.5 Encounter for palliative care; Z20.822 Contact with and (suspected) exposure to COVID-19; J43.9 Emphysema, unspecified; I11.0 Hypertensive heart disease with heart failure; D75.1 Secondary polycythemia; I25.10 Atherosclerotic heart disease of native coronary artery without angina pectoris; F17.210 Nicotine dependence, cigarettes, uncomplicated; F32.9 Major depressive disorder, single episode, unspecified; I73.9 Peripheral vascular disease, unspecified; F43.10 Post-traumatic stress disorder, unspecified; Z79.51 Long term (current) use of inhaled steroids; Z79.82 Long term (current) use of aspirin; Z79.899 Other long term (current) drug therapy; I69.328 Other speech and language deficits following cerebral infarction; I69.928 Other speech and language deficits following unspecified cerebrovascular disease; Z95.5 Presence of coronary angioplasty implant and graft; I25.2 Old myocardial infarction
CPT/HCPCS: 0240U; 31500; 36415; 36556; 36600; 71045; 71275; 76942; 80053; 80306; 82553; 82805; 83605; 83735; 83880; 84100; 84145; 84443; 84484; 85025; 85379; 86704; 86706; 86709; 86803; 87040; 87340; 93005; 93010; 93306; 93454; 94002; 94003; 94640; 94644; 94660; 96361; 96365; 96366; 96367; 96368; 96372; 96374; 96375; 97139; 99292; C9113; J0171; J0456; J0696; J1644; J1650; J1940; J2060; J2270; J2704; J2930; J3010; J3246; J3475; J3480; J3490; J7611; J7620; Q9967

== ENCOUNTER 2020-12-13 08:43 | Inpatient (IN) | payer MEDICARE ==
[2020-12-13] MEDS ORDERED: EPINEPHrine 1 MG/10 ML Abboject SYRINGE ONE ×2 (08:52→08:55)
[2020-12-13] MEDS ORDERED: Sodium Bicarb 50 MEQ/50 ML Abboject 8.4% SYRINGE ONE ×3 (08:52→13:37)
[2020-12-13] MEDS ORDERED: Furosemide 40 MG/4 ML VIAL ONE (09:08)
[2020-12-13 09:11] LABS: Analyzer IN Cardio ER; Base Excess (BEa) -26.4 mEq/L (-2.0 to +3.0); Calcium, Ionized (arterial) 1.27 mmol/L (1.12-1.30); Carboxyhemoglobin (COHb) 0.4 gm% (0.0-3.0); Hemoglobin (Hb) 11.6 g/dL (12.0-16.0); O2 Tension (PaO2), arterial 113.8 mmHg (> 80.0); Potassium - ABG Lab 4.34 mmol/L (3.70-5.30)
[2020-12-13] MEDS ORDERED: Norepinephrine 8 MG/0.9% NS 250 ML ONE (09:12)
[2020-12-13 09:15] LABS: pH, Arterial 6.71 (7.35-7.45)
[2020-12-13 09:15] LABS: #Basophils 0.1 thou/uL (0.0-0.2); #Eosinphils 0.1 thou/uL (0.0-0.7); #Lymphocytes 4.1 thou/uL (1.20-3.40); #Monocytes 0.7 thou/uL (0.11-0.59); #Neutrophils 3.3 thou/uL (1.40-6.50); %Basophils 0.8 % (0.0-1.0); %Eosinophils 1.3 % (0.0-10.0); %Lymphocytes 49.9 % (21.0-51.0); %Monocytes 8.1 % (0.0-10.0); %Neutrophils 40.1 % (42.0-75.0); Hemoglobin 7.3 g/dL (12.0-16.0); Mean Corpuscular HGB CONC 31.4 g/dL (32.0-36.0); Mean Corpuscular Hemoglobin 34.9 pg (27.0-31.0); Mean Platelet Volume 9.4 fL (7.4-10.4); Platelet Count 124 thou/uL (130-400); RBC Distribution Width 14.5 % (11.5-14.5); Red Blood Cell (RBC) Count 2.08 mill/uL (4.20-5.40); White Blood Cell (WBC) Count 8.1 thou/uL (4.8-10.8)
[2020-12-13 09:16] LABS: ALV-art Gradient 498.825 mmHg (0-20); CO2 Tension 80.3 mmHg (35.0-45.0); Puncture Site RRA
[2020-12-13 09:23] LABS: ALT (SGPT) 41 U/L (8-55); AST (SGOT) 43 U/L (5-34); Albumin 1.8 g/dL (3.4-4.8); Alkaline Phosphatase 38 U/L (40-110); Anion Gap 17 mmol/L (10-20); BUN (Urea Nitrogen) 14 mg/dL (9.8-20.1); Bilirubin, Total Less than 0.2 mg/dL (0.2-1.2); CK (CPK) 56 U/L (29-168); Calc. Creatinine Clearance 0 mL/min (70-130); Calcium 6.6 mg/dL (7.8-10.44); Carbon Dioxide 11 mmol/L (23-31); Chloride 123 mmol/L (98-107); Globulin 1.4 g/dL (2.4-3.5); Glucose 162 mg/dL (80-115); Lipase 33 U/L (8-78); Magnesium 1.6 mg/dL (1.6-2.6); Potassium 4.1 mmol/L (3.5-5.1); Protein, Total 3.2 g/dL (5.8-8.1); Sodium 147 mmol/L (136-145)
[2020-12-13] MEDS ORDERED: Fentanyl 100 MCG/2 ML VIAL ONE (09:23)
[2020-12-13] MEDS ORDERED: Fentanyl CADD 100 ML IV SCH ×2 (09:30→12:15)
[2020-12-13] MEDS ORDERED: Iopamidol-370 76% 500 ML 1 ML ONE (09:34)
[2020-12-13 09:44] LABS: CKMB 1.1 ng/mL (0-6.6)
[2020-12-13 09:45] LABS: INR-International Normal Ratio 1.4; PTT 43.5 sec (22.9-36.1); Prothrombin Time 17.7 sec (12.0-14.7)
[2020-12-13 09:48] LABS: Hypochromia SLIGHT = 6-15 cells (100X) (0-5/hpf); MDiff Complete? YES; Macrocytosis MODERATE=16-30 cells (100X) (0-5/hpf); Platelet Morphology Comment Appears Decreased; Polychromasia SLIGHT = 2-3 cells (100X) (0-2/hpf)
[2020-12-13 10:14] LABS: Bilirubin Negative (Negative); Blood, Urine Negative (Negative); Clarity Clear (Clear); Glucose, Urine (Dipstick) Normal (Negative); Ketone, Urine Negative (Negative); Leukocyte Negative Leu/uL (Negative); Nitrite Negative (Negative); Protein, Urine (Dipstick) 20 mg/dL (Neg-Trace); Urobilinogen Normal mg/dL (Less than 2)
[2020-12-13 10:25] LABS: Actual Bicarbonate (HCO3a) 17.5 mEq/L (22-28); Analyzer IN Cardio ER; Base Excess (BEa) -11.4 mEq/L (-2.0 to +3.0); CO2 Tension 51.9 mmHg (35.0-45.0); Calcium, Ionized (arterial) 1.19 mmol/L (1.12-1.30); Carboxyhemoglobin (COHb) 0.4 gm% (0.0-3.0); Hemoglobin (Hb) 12.3 g/dL (12.0-16.0); Potassium - ABG Lab 5.76 mmol/L (3.70-5.30)
[2020-12-13 10:28] LABS: Puncture Site RBA; pH, Arterial 7.15 (7.35-7.45)
[2020-12-13 10:29] LABS: ALV-art Gradient 398.125 mmHg (0-20)
[2020-12-13] MEDS ORDERED: Cefepime 2 GM VIAL ONE (10:38)
[2020-12-13] MEDS ORDERED: Vancomycin 1 GM/200 ML BAG ONE (10:50)
[2020-12-13] MEDS ORDERED: Magnesium 2 GM/50 ML BAG (IN WATER) ONE (11:10)
[2020-12-13 11:16] LABS: SARS-CoV-2 NAA Rapid Test Not Detected (NotDetected)
[2020-12-13 11:17] LABS: Amphetamine Not Detected (NotDetected); Barbiturates Screen Not Detected (NotDetected); Benzodiazepine Screen Not Detected (NotDetected); Cocaine Metabolite Screen Not Detected (NotDetected); Medtox Control Line Valid? VALID (VALID); Medtox Reader # READER 1; Methadone Not Detected (NotDetected); Methamphetamine Not Detected (NotDetected); Opiate Screen Not Detected (NotDetected); Oxycodone Screen Not Detected (NotDetected); Phencyclidine (PCP) Not Detected (NotDetected); THC/Cannabinoid Screen Not Detected (NotDetected); Tricyclic Screen Not Detected (NotDetected)
[2020-12-13] MEDS ORDERED: Acetaminophen 650 MG Suppository PR PRN (11:55)
[2020-12-13] MEDS ORDERED: Ondansetron PF 4 MG/2 ML Vial IVP PRN (11:55)
[2020-12-13] MEDS ORDERED: Norepinephrine 8 MG/0.9% NS 250 ML IVPB PRN (11:55)
[2020-12-13] MEDS ORDERED: Ventilator Sedation Protocol 1 EACH FS SCH (11:55)
[2020-12-13] MEDS ORDERED: Acetaminophen 325 MG TAB PO PRN (11:55)
[2020-12-13 12:09] LABS: Lactic Acid 4.2 mmol/L (0.5-2.2)
[2020-12-13 12:15] LABS: Troponin I 0.203 ng/mL (< 0.028)
[2020-12-13] MEDS ORDERED: DISCONTINUE PREVIOUS NARCOTIC PAIN MEDICATIONS AND BENZODIAZEPINES FS SCH (12:15)
[2020-12-13] MEDS ORDERED: Morphine 2 MG/ML VIAL SLOW IVP PRN (12:15)
[2020-12-13] MEDS ORDERED: Propofol BOLUS 1,000 MG/100 ML VIAL IV PRN (12:15)
[2020-12-13] MEDS ORDERED: Propofol 1,000 MG/100 ML VIAL IV PRN (12:15)
[2020-12-13] MEDS ORDERED: Fentanyl BOLUS 250 ML IVPB PRN (12:15)
[2020-12-13] MEDS ORDERED: Lorazepam 2 MG/ML VIAL SLOW IVP PRN (12:15)
[2020-12-13 12:55] VITALS: BMI 22.0
[2020-12-13 12:58] LABS: Thyroid Stimulating Hormone 2.2935 uIU/mL (0.35-4.94)
[2020-12-13] MEDS ORDERED: Sodium Bicarb 50 MEQ/50 ML Abboject 8.4% SYRINGE IVP SCH (13:30)
[2020-12-13] MEDS ORDERED: Sodium Bicarbonate 150 MEQ in Dextrose 5% in Water 1,000 ML IV SCH (13:30)
[2020-12-13] MEDS ORDERED: Nitroglycerin 0.4 MG TAB (25 Tab Bottle) SL PRN (13:30)
[2020-12-13 14:27] VITALS: BP 115/83
[2020-12-13 14:53] LABS: Actual Bicarbonate (HCO3a) 21.4 mEq/L (22-28); Base Excess (BEa) -3.1 mEq/L (-2.0 to +3.0); CO2 Tension 36.7 mmHg (35.0-45.0); Calcium, Ionized (arterial) 1.11 mmol/L (1.12-1.30); Carboxyhemoglobin (COHb) 0.5 gm% (0.0-3.0); Hemoglobin (Hb) 13.1 g/dL (12.0-16.0); O2 Tension (PaO2), arterial 68.4 mmHg (> 80.0); Potassium - ABG Lab 5.02 mmol/L (3.70-5.30); pH, Arterial 7.38 (7.35-7.45)
[2020-12-13 14:55] LABS: ALV-art Gradient 313.525 mmHg (0-20); Puncture Site LRA
[2020-12-13] MEDS: Clindamycin/D5W 600 MG in Premix Bag 1 BAG IVPB SCH ×2 (14:55→20:15)
[2020-12-13 15:27] LABS: Lactic Acid 3.4 mmol/L (0.5-2.2)
[2020-12-13 15:28] LABS: INR-International Normal Ratio 1.3; PTT 31.1 sec (22.9-36.1); Prothrombin Time 16.2 sec (12.0-14.7)
[2020-12-13 15:53] LABS: Troponin I 0.448 ng/mL (< 0.028)
[2020-12-13 16:09] LABS: ALT (SGPT) 255 U/L (8-55); AST (SGOT) 329 U/L (5-34); Albumin 3.4 g/dL (3.4-4.8); Alkaline Phosphatase 97 U/L (40-110); Anion Gap 18 mmol/L (10-20); BUN (Urea Nitrogen) 28 mg/dL (9.8-20.1); Bilirubin, Total 0.5 mg/dL (0.2-1.2); Calc. Creatinine Clearance 34 mL/min (70-130); Calcium 8.8 mg/dL (7.8-10.44); Carbon Dioxide 25 mmol/L (23-31); Chloride 107 mmol/L (98-107); Globulin 2.3 g/dL (2.4-3.5); Glucose 307 mg/dL (80-115); Magnesium 2.9 mg/dL (1.6-2.6); Potassium 5.2 mmol/L (3.5-5.1); Protein, Total 5.7 g/dL (5.8-8.1); Sodium 145 mmol/L (136-145)
[2020-12-13 16:12] LABS: Hemoglobin 13.7 g/dL (12.0-16.0)
[2020-12-13] MEDS ORDERED: Dextrose 5% in Water 1,000 ML IV PRN (16:24)
[2020-12-13] MEDS ORDERED: HumaLOG 300 UNITS/3 ML VIAL SC PRN ×2 (16:24)
[2020-12-13] MEDS ORDERED: Dextrose 50% Abboject 50 ML SYRINGE SLOW IVP PRN (16:24)
[2020-12-13 17:07] LABS: Hemoglobin 13.7 g/dL (12.0-16.0); Mean Corpuscular HGB CONC 31.4 g/dL (32.0-36.0); Mean Corpuscular Hemoglobin 32.1 pg (27.0-31.0); Mean Platelet Volume 8.8 fL (7.4-10.4); Platelet Count 181 thou/uL (130-400); Red Blood Cell (RBC) Count 4.26 mill/uL (4.20-5.40); White Blood Cell (WBC) Count 24.1 thou/uL (4.8-10.8)
[2020-12-13] MEDS ORDERED: Vancomycin 1 GM in Premix Bag 1 BAG IVPB SCH (21:00)
[2020-12-13] MEDS ORDERED: Metoprolol Tartrate 25 MG TAB PO SCH (21:00)
[2020-12-13] MEDS ORDERED: Vancomycin HCl 750 MG in Sodium Chloride 0.9% 250 ML 250 ML IVPB SCH (23:00)
[2020-12-13] MEDS ORDERED: Cefepime 2 GM in Sodium Chloride 0.9% 100 ML IVPB SCH (23:00)
[2020-12-14] MEDS ORDERED: DOBUTamine 500 mg/250 ml 500 MG in Premix Bag 1 BAG IVPB SCH ×2 (00:45→01:09)
[2020-12-14] MEDS ORDERED: EPINEPHrine 4 MG in Dextrose 5% in Water 250 ML IVPB SCH (02:15)
[2020-12-14] MEDS ORDERED: Sodium Chloride 0.9% 500 ML IV SCH (02:15)
[2020-12-14] MEDS ORDERED: EPINEPHrine 1 MG/10 ML Abboject SYRINGE ONE (02:34)
[2020-12-14 05:50] VITALS: TEMP 98.9
[2020-12-14] MEDS ORDERED: Aspirin 325 mg Enteric Coated Tablet PO SCH (09:00)
[2020-12-14] MEDS ORDERED: Pantoprazole 40 MG VIAL IVP SCH (09:00)
[2020-12-14] MEDS ORDERED: Prevnar 13-Val Conj/PF 0.5 ML SYRINGE IM ONE (09:00)
[2020-12-14] MEDS ORDERED: Enoxaparin Sodium 40 MG/0.4 ML SYRINGE SC SCH (09:00)
== END 2020-12-14 09:56 | disposition expired ==
LOC: ERS 08:43 → CCU 08:59
PROVIDERS: ADMIT Student in an Organized Health Care Education/Training Program; ATTEND Student in an Organized Health Care Education/Training Program
PROC: 3E033XZ Introduction of Vasopressor into Peripheral Vein, Percutaneous Approach (ICD-10-PCS; 2020-12-13)
PROC: 0BH17EZ Insertion of Endotracheal Airway into Trachea, Via Natural or Artificial Opening (ICD-10-PCS; 2020-12-13)
PROC: 5A1935Z Respiratory Ventilation, Less than 24 Consecutive Hours (ICD-10-PCS; 2020-12-13)
PROC: 5A12012 Performance of Cardiac Output, Single, Manual (ICD-10-PCS; principal; 2020-12-14)
DX: I21.4 Non-ST elevation (NSTEMI) myocardial infarction (principal); J96.01 Acute respiratory failure with hypoxia; J96.02 Acute respiratory failure with hypercapnia; J69.0 Pneumonitis due to inhalation of food and vomit; S22.41XA Multiple fractures of ribs, right side, initial encounter for closed fracture; E87.4 Mixed disorder of acid-base balance; E87.0 Hyperosmolality and hypernatremia; G93.1 Anoxic brain damage, not elsewhere classified; I50.22 Chronic systolic (congestive) heart failure; D53.9 Nutritional anemia, unspecified; I46.2 Cardiac arrest due to underlying cardiac condition; D69.59 Other secondary thrombocytopenia; I25.10 Atherosclerotic heart disease of native coronary artery without angina pectoris; J44.9 Chronic obstructive pulmonary disease, unspecified; I11.0 Hypertensive heart disease with heart failure; E78.5 Hyperlipidemia, unspecified; F41.9 Anxiety disorder, unspecified; Y84.8 Other medical procedures as the cause of abnormal reaction of the patient, or of later complication, without mention of misadventure at the time of the procedure; I25.5 Ischemic cardiomyopathy; F17.210 Nicotine dependence, cigarettes, uncomplicated; F32.9 Major depressive disorder, single episode, unspecified; Z20.822 Contact with and (suspected) exposure to COVID-19; I95.9 Hypotension, unspecified; Z86.73 Personal history of transient ischemic attack (TIA), and cerebral infarction without residual deficits
CPT/HCPCS: 0240U; 36415; 36416; 36430; 36556; 36600; 51702; 70450; 71045; 71275; 80053; 80306; 81003; 82550; 82553; 82607; 82746; 82805; 83036; 83605; 83690; 83735; 83880; 84145; 84443; 84484; 85025; 85610; 85730; 86850; 86900; 86901; 87040; 87070; 87086; 87205; 93005; 93010; 93306; 94002; 96365; 96366; 96367; 96368; 96375; 96376; J0171; J0692; J1250; J1815; J1940; J1956; J2060; J2270; J3010; J3370; J3475; J3490; J7050; J7070; P9016; Q9967